=== PATIENT | male | born 1935 | race Caucasian/White ===

== ENCOUNTER → 2016-12-04 | Outpatient (CLI) | payer MEDICARE ==
[~2016-12-04] VITALS: Ht 170.2 cm; Wt 63.0 kg
[~2016-12-04] MED LIST: ALDA100T PO; ASPI81CH37 CHEW; BENZ100 PO; CARV3.125 PO; ECOT81TA2 PO; FURO1TAB60 PO; INSULIN HUMAN REGULAR 1,000 UNITS/10 ML VIAL SQ PRN; LACT PO; LACTATED RINGER'S 1000 ML IV SCH; LOPE2TAB PO; MELA1CAP PO; MELA5CAP2 PO; METOPROLOL TARTRATE 25 MG TAB PO PRN; MULT1TAB93; MYCO500 PO; NYST10007 TOPICAL; PRED5 PO; PRED5TAB PO; PROPOFOL 200 MG/20 ML AMP IV ONE; SAW500CA6 PO; SODIUM CHLORID 0.9% 500 ML IV SCH; VITA100021 SL; VITA50TA10 SL; hospital bed
[2016-12-04 11:19] VITALS: BP 134/70; PULSE 64; RESP 20; TEMP 96.8; O2SAT 100
[2016-12-04 13:57] VITALS: BP 98/55; PULSE 65; RESP 16; O2SAT 97
== END ==
LOC: HEND 10:40
PROVIDERS: ATTEND Specialist
DX: K29.50 Unspecified chronic gastritis without bleeding (principal); K74.60 Unspecified cirrhosis of liver; K76.6 Portal hypertension; K31.89 Other diseases of stomach and duodenum; I11.0 Hypertensive heart disease with heart failure; I50.9 Heart failure, unspecified; K21.9 Gastro-esophageal reflux disease without esophagitis; I25.10 Atherosclerotic heart disease of native coronary artery without angina pectoris; Z72.89 Other problems related to lifestyle
CPT/HCPCS: 00740; 43239; 88305; 88312; J7120

== ENCOUNTER → 2016-12-12 | Outpatient (CLI) | payer MEDICARE ==
[~2016-12-12] MED LIST changes: -ECOT81TA2 PO; -INSULIN HUMAN REGULAR 1,000 UNITS/10 ML VIAL SQ PRN; -LACTATED RINGER'S 1000 ML IV SCH; -LOPE2TAB PO; -MELA1CAP PO; -METOPROLOL TARTRATE 25 MG TAB PO PRN; -PRED5 PO; -PROPOFOL 200 MG/20 ML AMP IV ONE; -SAW500CA6 PO; -SODIUM CHLORID 0.9% 500 ML IV SCH; -VITA50TA10 SL; -hospital bed
[2016-12-12 15:27] LABS: HEMATOCRIT 29.3 % (39.0-51.0); MEAN CELL VOLUME 82.9 FL (80.0-100.0); MEAN CORPUSCULAR HEMOGLOBIN 27.7 PG (27.0-34.0); MEAN CORPUSCULAR HGB CONC 33.4 % (32.0-36.0); PLATELET COUNT 143 TH/MM3 (150-450); RED BLOOD COUNT 3.54 MIL/MM3 (4.50-5.90); RED CELL DISTRIBUTION WIDTH 16.6 % (11.6-17.2); REVIEW FLAG FINAL
[2016-12-12 15:41] LABS: BLOOD, URINE MOD (NEG); GLUCOSE,URINE NEG (NEG); KETONE, URINE NEG (NEG); MUCUS URINE FEW /lpf (OCC); NITRITE,URINE NEG (NEG); PH, URINE 5.5 (5.0-8.5); URINE COLOR LIGHT-YELLOW (YELLW/STRAW)
[2016-12-12 15:56] LABS: ANION GAP 7 MEQ/L (5-15); AST (GOT) 18 U/L (15-37); BICARBONATE 26.9 MEQ/L (21.0-32.0); BLOOD UREA NITROGEN 20 MG/DL (7-18); CHLORIDE 106 MEQ/L (98-107); GLOMERULAR FILTRATION RATE 72 ML/MIN (>89); GLUCOSE,FASTING 85 MG/DL (74-99); POTASSIUM 3.7 MEQ/L (3.5-5.1); SODIUM (NA) 140 MEQ/L (136-145)
[2016-12-12 15:59] LABS: ALKALINE PHOSPHATASE 76 U/L (45-117); ALT (GPT) 14 U/L (12-78); TOTAL BILIRUBIN ADULT 0.7 MG/DL (0.2-1.0)
[2016-12-17 03:53] LABS: MYELOPEROXIDASE LESS THAN 1.0 AI (<1.0); PROTEINASE-3 LESS THAN 1.0 AI (<1.0)
== END ==
LOC: CLAB 14:33
PROVIDERS: ATTEND Internal Medicine Rheumatology
DX: A50.02 Early congenital syphilitic osteochondropathy (principal)
CPT/HCPCS: 36415; 80053; 81001; 85027; 86021; 86140

== ENCOUNTER → 2017-01-29 | Outpatient (CLI) | payer MEDICARE ==
[2017-01-29 12:24] LABS: HEMATOCRIT 31.1 % (39.0-51.0); MEAN CELL VOLUME 84.7 FL (80.0-100.0); MEAN CORPUSCULAR HEMOGLOBIN 26.9 PG (27.0-34.0); MEAN CORPUSCULAR HGB CONC 31.8 % (32.0-36.0); PLATELET COUNT 145 TH/MM3 (150-450); RED BLOOD COUNT 3.67 MIL/MM3 (4.50-5.90); RED CELL DISTRIBUTION WIDTH 17.2 % (11.6-17.2); REVIEW FLAG FINAL
[2017-01-29 12:51] LABS: ALKALINE PHOSPHATASE 65 U/L (45-117); ALT (GPT) 16 U/L (12-78); ANION GAP 5 MEQ/L (5-15); AST (GOT) 26 U/L (15-37); BICARBONATE 29.2 MEQ/L (21.0-32.0); BLOOD UREA NITROGEN 20 MG/DL (7-18); CHLORIDE 107 MEQ/L (98-107); GLOMERULAR FILTRATION RATE 69 ML/MIN (>89); GLUCOSE,FASTING 99 MG/DL (74-99); POTASSIUM 3.9 MEQ/L (3.5-5.1); SODIUM (NA) 141 MEQ/L (136-145); TOTAL BILIRUBIN ADULT 0.7 MG/DL (0.2-1.0)
[2017-01-29 13:29] LABS: BLOOD, URINE MOD (NEG); GLUCOSE,URINE NEG (NEG); KETONE, URINE TRACE mg/dL (NEG); MUCUS URINE FEW /lpf (OCC); NITRITE,URINE NEG (NEG); PH, URINE 5.5 (5.0-8.5); SQUAMOUS EPITHELIAL CELL URINE <1 /hpf (0-5); URINE COLOR DARK-YELLOW (YELLW/STRAW)
== END ==
LOC: CLAB 11:53
PROVIDERS: ATTEND Internal Medicine Rheumatology
DX: M31.30 Wegener's granulomatosis without renal involvement (principal)
CPT/HCPCS: 36415; 80053; 81001; 85027; 86140

== ENCOUNTER → 2017-05-01 | Day surgery (SDC) | payer MEDICARE ==
[~2017-05-01] MED LIST changes: +BUPIVACAINE/EPINEPHRINE 0.25% 50 ML VIAL ONE; +BUPIVACAINE/EPINEPHRINE 0.5% PF 30 ML VIAL ONE; +LACTATED RINGER'S 1,000 ML BAG IV ONE; +NEOMYCIN/POLYMYXIN/BACITRACIN OINT 15 GM TUBE ONE; +PROPOFOL 200 MG/20 ML AMP IV ONE
--- NOTE | 2017-05-01 11:20 | TN ---
cc: BALBINA SHAIKH M.D. DATE OF SURGERY 05/01/2017 PREOPERATIVE DIAGNOSES 1. Raised skin lesion x 3 right forehead. 2. Raised skin lesion right lower leg, 1-cm, concerning for a basal cell or squamous cell carcinoma. 3. Pigmented skin lesion left thigh, 1 cm. 4. Raised skin lesion right lower back. PROCEDURE PERFORMED 1. A 5-mm punch excision right forehead skin lesion x 3. 2. A 3 x 2-cm wide local excision of raised skin lesion right lower leg. 3. 2 x -cm wide local excision pigmented skin lesion left thigh. 4. Wide local excision 2 x 1-cm skin lesion right lower back. SURGEON Balbina Shaikh MD ANESTHESIA General LMA. COMPLICATIONS None. INDICATION Mr. Brewer is a pleasant 82-year-old gentleman who had multiple recurring skin lesions. Specifically he had three on his forehead that were concerning for possible basal cell or squamous cell carcinoma. 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 On his back he had a nonhealing wound which was itching and it was also concerning for basal or squamous cell. He was seen and evaluated in the office. Because he had multiple lesions, I recommended this be done in the operating room. The risks and benefits of wide local excision of all these lesions was discussed with him and he was agreeable. DETAILS The patient was identified, brought to the operating room, placed supine on the operating table. After adequate general anesthesia was achieved with LMA, the forehead was prepped and draped in standard surgical fashion. 0.25% Marcaine was injected into the skin and subcutaneous tissue around the three lesions. Each lesion was cored out using a 5-mm core biopsy which achieved gross negative margins. All three lesions were cored out separately and labeled right forehead inferior lesion, right forehead superior lesion, right forehead superior lateral lesion. All these were excised with a 5-mm core. They were sent as separate specimens. Each of these three wounds was then closed with interrupted 5-0 Monocryl suture. Sterile dressings were applied. Attention was now directed to the left lower thigh. On the left lower thigh the patient had a pigmented skin lesion he was concerned about for possible melanoma. He requested this be excised. 0.25% Marcaine was injected around the left thigh. A 2 x 1-cm elliptical incision was then made to excise the lesion to gross negative margins. The wound was then closed in two layers using a 3-0 and 4-0 Vicryl. Sterile dressings were applied. Attention was now direct the right lower leg. On the right lower leg on the medial tuttle the patient had an obvious basilar squamous cell carcinoma. 0.25% Marcaine was injected around the lesion. A 3 x 2-cm excision was used to excise the lesion to gross negative margins. A short stitch was placed superior, long stitch was placed lateral which was the marking for all lesions. The wound was then closed in two layers using 3-0 Vicryl and a 4-0 nylon. The patient was then turned in the left lateral decubitus position with appropriate padding for hips, knees, shoulders and ankle as well as an axillary roll. 0.25% Marcaine was injected around the skin lesion on the back. A 2 x 1-cm incision was used to excise this lesion in toto. The wound was then closed in two layers using 3-0 Vicryl and a 4-0 nylon. Sterile dressings were applied. The patient was awakened and brought to Recovery in stable condition. MD VADIM Tay/MAXIME /11:04 AM /11:11 AM
== END | disposition home or self-care (01) ==
LOC: ESDC 08:24
PROVIDERS: ATTEND Surgery Trauma Surgery
DX: L72.0 Epidermal cyst (principal); C44.329 Squamous cell carcinoma of skin of other parts of face; L57.8 Other skin changes due to chronic exposure to nonionizing radiation; L57.0 Actinic keratosis
CPT/HCPCS: 00300; 00400; 11402; 11403; 11440; 11603; 11640; 12032; 88304; 88305; J3010; J7120

== ENCOUNTER 2017-07-11 15:10 | Inpatient (IN) | payer MEDICARE ==
[~2017-07-11] VITALS: Ht 170.2 cm; Wt 66.0 kg
[~2017-07-11 15:10] MED LIST changes: -BUPIVACAINE/EPINEPHRINE 0.25% 50 ML VIAL ONE; -BUPIVACAINE/EPINEPHRINE 0.5% PF 30 ML VIAL ONE; -LACTATED RINGER'S 1,000 ML BAG IV ONE; -NEOMYCIN/POLYMYXIN/BACITRACIN OINT 15 GM TUBE ONE; -PROPOFOL 200 MG/20 ML AMP IV ONE
[2017-07-11 15:16] VITALS: BP 114/82; PULSE 61; RESP 16; TEMP 98.5; O2SAT 97
[2017-07-11 15:34] VITALS: BP 114/82; PULSE 59; RESP 15; TEMP 98.5; O2SAT 97
[2017-07-11] MEDS ORDERED: FURO1TAB60 PO (15:37)
--- NOTE | 2017-07-11 15:43 | PD ---
HPI Chief Complaint: Respiratory Distress Time Seen by Provider: 15:17 Travel History International Travel<30 days: No Contact w/Intl Traveler<30days: No Traveled to known affect area: No History of Present Illness HPI Patient is an 82-year-old male who presents to emergency room for evaluation of shortness of breath. Patient reports that he has been short of breath for the past 3-4 days, reports history of recurrent pleural effusions which required thoracentesis in the past. Patient reports that he called Dr. Afshin Jones's office prior to coming to the ER, he was told to come go the the ER for evaluation as he may need a thoracentesis. Patient denies any chest pain, denies any fevers or chills. Patient denies any cough or congestion. 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 PFSH Past Medical History Arthritis: No Cancer: Yes (colon) Cardiac Catheterization: Yes Cardiovascular Problems: Yes (cardiac cath) Chemotherapy: Yes (11/04-12/06) Chest Pain: Yes Congestive Heart Failure: Yes Cerebrovascular Accident: No Diabetes: No Endocrine: No Gastrointestinal Disorders: Yes (colon ca) GERD: Yes Genitourinary: No Headaches: No Hepatitis: No Hiatal Hernia: No Hypertension: Yes Musculoskeletal: Yes Neurologic: Yes (wedginers disease) Psychiatric: Yes Respiratory: Yes Myocardial Infarction: Yes (SEP 2015) Radiation Therapy: Yes (11/04-12/06) Seizures: No Thyroid Disease: No Past Surgical History Abdominal Surgery: Yes (colon cancer surgery 2004) Cardiac Surgery: Yes (cardiac cath) Ear Surgery: No Endocrine Surgery: No Eye Surgery: Yes (cataract sx) Genitourinary Surgery: No Gynecologic Surgery: No Neurologic Surgery: No Oral Surgery: No Thoracic Surgery: No Other Surgery: Yes (colon ca, eye surgery) Social History Alcohol Use: Yes (glass wine daily) Tobacco Use: No Substance Use: No Allergies-Medications (Allergen,Severity, Reaction): Coded Allergies: No Known Allergies (Verified , 07/11/17) Reported Meds & Prescriptions Reported Meds & Active Scripts Active Tessalon Perles (Benzonatate) 100 Mg Cap 100 Mg PO TID PRN Aldactone (Spironolactone) 100 Mg Tab 100 Mg PO DAILY Reported Lasix (Furosemide) 40 Mg Tab 40 Mg PO BID Vitamin B-12 (Cyanocobalamin) 1,000 Mcg Subl 1 Tab SL DAILY Prednisone 5 Mg Tab 5 Mg PO DAILY Aspirin Low Dose (Aspirin) 81 Mg Chew 81 Mg CHEW DAILY Coreg (Carvedilol) 3.125 Mg Tab 3.125 Mg PO BID Review of Systems General / Constitutional: No: Fever Eyes: No: Visual changes HENT: No: Headaches Cardiovascular: No: Chest Pain or Discomfort, Palpitations, Irregular Rhythm, Tachycardia, Diaphoresis Respiratory: Positive: Shortness of Breath, No: Cough Gastrointestinal: No: Nausea, Vomiting, Abdominal Pain Genitourinary: No: Dysuria Musculoskeletal: No: Pain Skin: No Rash Neurologic: No: Weakness Psychiatric: No: Depression Endocrine: No: Polydipsia Hematologic/Lymphatic: No: Easy Bruising Physical Exam Narrative GENERAL: NAD, Nontoxic SKIN: Focused skin assessment warm/dry. HEAD: Atraumatic. Normocephalic. EYES: Pupils equal and round. No scleral icterus. No injection or drainage. ENT: No nasal bleeding or discharge. Mucous membranes pink and moist. NECK: Trachea midline. No JVD. CARDIOVASCULAR: Regular rate and rhythm. +3/6 systolic murmur RESPIRATORY: No accessory muscle use. Clear to auscultation. Breath sounds equal bilaterally. GASTROINTESTINAL: Abdomen soft, non-tender, nondistended. Hepatic and splenic margins not palpable. MUSCULOSKELETAL: No obvious deformities. No clubbing. No cyanosis. No edema. NEUROLOGICAL: Awake and alert. No obvious cranial nerve deficits. Motor grossly within normal limits. Normal speech. PSYCHIATRIC: Appropriate mood and affect; insight and judgment normal. Data Data Last Documented VS Vital Signs Date Time Temp Pulse Resp B/P Pulse Ox O2 Delivery O2 Flow Rate FiO2 07/11/17 15:34 98.5 59 15 114/82 97 Room Air Orders Electrocardiogram (07/11/17 15:23) Prothrombin Time / Inr (Pt) (07/11/17 15:23) Act Partial Throm Time (Ptt) (07/11/17 15:23) Complete Blood Count With Diff (07/11/17 15:23) Basic Metabolic Panel (Bmp) (07/11/17 15:23) Creatine Kinase (Cpk) (07/11/17 15:23) Troponin I (07/11/17 15:23) Ecg Monitoring (07/11/17 15:23) Iv Access Insert/Monitor (07/11/17 15:23) Oximetry (07/11/17 15:23) B-Type Natriuretic Peptide (07/11/17 15:38) Chest, Pa & Lat (07/11/17 15:50) Blood Culture (07/11/17 16:40) Ceftriaxone Inj (Rocephin Inj) (07/11/17 16:45) Azithromycin Inj (Zithromax Inj) (07/11/17 16:45) Admit Order (Ed Use Only) (07/11/17 17:03) Labs Laboratory Tests Test 07/11/17 15:40 White Blood Count 16.1 TH/MM3 Red Blood Count 3.59 MIL/MM3 Hemoglobin 10.6 GM/DL Hematocrit 31.6 % Mean Corpuscular Volume 87.9 FL Mean Corpuscular Hemoglobin 29.6 PG Mean Corpuscular Hemoglobin 33.7 % Concent Red Cell Distribution Width 18.4 % Platelet Count 124 TH/MM3 Mean Platelet Volume 8.3 FL Neutrophils (%) (Auto) 26.3 % Lymphocytes (%) (Auto) 69.1 % Monocytes (%) (Auto) 3.4 % Eosinophils (%) (Auto) 0.7 % Basophils (%) (Auto) 0.5 % Neutrophils # (Auto) 4.2 TH/MM3 Lymphocytes # (Auto) 11.1 TH/MM3 Monocytes # (Auto) 0.6 TH/MM3 Eosinophils # (Auto) 0.1 TH/MM3 Basophils # (Auto) 0.1 TH/MM3 CBC Comment AUTO DIFF Prothrombin Time 12.7 SEC Prothromb Time International 1.1 RATIO Ratio Activated Partial 25.9 SEC Thromboplast Time Sodium Level 140 MEQ/L Potassium Level 3.8 MEQ/L Chloride Level 104 MEQ/L Carbon Dioxide Level 28.0 MEQ/L Anion Gap 8 MEQ/L Blood Urea Nitrogen 25 MG/DL Creatinine 0.99 MG/DL Estimat Glomerular Filtration 73 ML/MIN Rate Random Glucose 94 MG/DL Calcium Level 7.9 MG/DL Total Creatine Kinase 20 U/L Troponin I LESS THAN 0.02 NG/ML B-Type Natriuretic Peptide 100 PG/ML MDM Medical Decision Making Medical Screen Exam Complete: Yes Emergency Medical Condition: Yes Interpretation(s) EKG at 1612: sinus leyla at 58bpm, qt/qtc: 438/436, no acute st or t wave changes Vital Signs Date Time Temp Pulse Resp B/P Pulse Ox O2 Delivery O2 Flow Rate FiO2 07/11/17 15:16 98.5 61 16 114/82 97 Vital Signs Date Time Temp Pulse Resp B/P Pulse Ox O2 Delivery O2 Flow Rate FiO2 07/11/17 15:34 98.5 59 15 114/82 97 Room Air 07/11/17 15:34 59 15 98 Room Air 07/11/17 15:34 59 15 114/82 97 Room Air 07/11/17 15:16 98.5 61 16 114/82 97 Laboratory Tests Test 07/11/17 15:40 White Blood Count 16.1 TH/MM3 (4.0-11.0) Red Blood Count 3.59 MIL/MM3 (4.50-5.90) Hemoglobin 10.6 GM/DL (13.0-17.0) Hematocrit 31.6 % (39.0-51.0) Mean Corpuscular Volume 87.9 FL (80.0-100.0) Mean Corpuscular Hemoglobin 29.6 PG (27.0-34.0) Mean Corpuscular Hemoglobin 33.7 % Concent (32.0-36.0) Red Cell Distribution Width 18.4 % (11.6-17.2) Platelet Count 124 TH/MM3 (150-450) Mean Platelet Volume 8.3 FL (7.0-11.0) Neutrophils (%) (Auto) 26.3 % (16.0-70.0) Lymphocytes (%) (Auto) 69.1 % (9.0-44.0) Monocytes (%) (Auto) 3.4 % (0.0-8.0) Eosinophils (%) (Auto) 0.7 % (0.0-4.0) Basophils (%) (Auto) 0.5 % (0.0-2.0) Neutrophils # (Auto) 4.2 TH/MM3 (1.8-7.7) Lymphocytes # (Auto) 11.1 TH/MM3 (1.0-4.8) Monocytes # (Auto) 0.6 TH/MM3 (0-0.9) Eosinophils # (Auto) 0.1 TH/MM3 (0-0.4) Basophils # (Auto) 0.1 TH/MM3 (0-0.2) CBC Comment AUTO DIFF Prothrombin Time 12.7 SEC (9.8-11.6) Prothromb Time International 1.1 RATIO Ratio Activated Partial 25.9 SEC Thromboplast Time (24.3-30.1) Sodium Level 140 MEQ/L (136-145) Potassium Level 3.8 MEQ/L (3.5-5.1) Chloride Level 104 MEQ/L (98-107) Carbon Dioxide Level 28.0 MEQ/L (21.0-32.0) Anion Gap 8 MEQ/L (5-15) Blood Urea Nitrogen 25 MG/DL (7-18) Creatinine 0.99 MG/DL (0.60-1.30) Estimat Glomerular Filtration 73 ML/MIN (>89) Rate Random Glucose 94 MG/DL (74-106) Calcium Level 7.9 MG/DL (8.5-10.1) Total Creatine Kinase 20 U/L (39-308) Troponin I LESS THAN 0.02 NG/ML (0.02-0.05) Last Impressions Chest X-Ray 07/11/17 1550 Signed Impressions: Service Date/Time: July 15:59 - CONCLUSION: Small bilateral pleural effusions with some bibasilar infiltrates. Klever Jose MD Differential Diagnosis Differential includes pleural effusions, pneumonia, CHF exacerbation, ascites Narrative Course Patient is an 82-year-old male who presents to emergency room with complaints of shortness of breath for the past 3-4 days. Patient was told to come to the emergency room by Dr. jones for evaluation and possible admission. I did call Dr. Afshin Jones and discussed case with him, reports that patient has history of recurrent pleural effusions requiring thoracentesis. Reports that he has history of liver cirrhosis with portal hypertension and has had ascites in the past. Dr. Jones did talk to patient and told patient to come to the ER for an xray of his chest if he is feeling sob. Discussed with him that if he does have significant pleural effusions, Vital Signs Date Time Temp Pulse Resp B/P Pulse Ox O2 Delivery O2 Flow Rate FiO2 07/11/17 15:16 98.5 61 16 114/82 97 VSS while in the ER. Labs as well as xray of chest ordered. Vital Signs Date Time Temp Pulse Resp B/P Pulse Ox O2 Delivery O2 Flow Rate FiO2 07/11/17 15:34 98.5 59 15 114/82 97 Room Air 07/11/17 15:34 59 15 98 Room Air 07/11/17 15:34 59 15 114/82 97 Room Air 07/11/17 15:16 98.5 61 16 114/82 97 Laboratory Tests Test 07/11/17 15:40 White Blood Count 16.1 TH/MM3 (4.0-11.0) Red Blood Count 3.59 MIL/MM3 (4.50-5.90) Hemoglobin 10.6 GM/DL (13.0-17.0) Hematocrit 31.6 % (39.0-51.0) Mean Corpuscular Volume 87.9 FL (80.0-100.0) Mean Corpuscular Hemoglobin 29.6 PG (27.0-34.0) Mean Corpuscular Hemoglobin 33.7 % Concent (32.0-36.0) Red Cell Distribution Width 18.4 % (11.6-17.2) Platelet Count 124 TH/MM3 (150-450) Mean Platelet Volume 8.3 FL (7.0-11.0) Neutrophils (%) (Auto) 26.3 % (16.0-70.0) Lymphocytes (%) (Auto) 69.1 % (9.0-44.0) Monocytes (%) (Auto) 3.4 % (0.0-8.0) Eosinophils (%) (Auto) 0.7 % (0.0-4.0) Basophils (%) (Auto) 0.5 % (0.0-2.0) Neutrophils # (Auto) 4.2 TH/MM3 (1.8-7.7) Lymphocytes # (Auto) 11.1 TH/MM3 (1.0-4.8) Monocytes # (Auto) 0.6 TH/MM3 (0-0.9) Eosinophils # (Auto) 0.1 TH/MM3 (0-0.4) Basophils # (Auto) 0.1 TH/MM3 (0-0.2) CBC Comment AUTO DIFF Prothrombin Time 12.7 SEC (9.8-11.6) Prothromb Time International 1.1 RATIO Ratio Activated Partial 25.9 SEC Thromboplast Time (24.3-30.1) Sodium Level 140 MEQ/L (136-145) Potassium Level 3.8 MEQ/L (3.5-5.1) Chloride Level 104 MEQ/L (98-107) Carbon Dioxide Level 28.0 MEQ/L (21.0-32.0) Anion Gap 8 MEQ/L (5-15) Blood Urea Nitrogen 25 MG/DL (7-18) Creatinine 0.99 MG/DL (0.60-1.30) Estimat Glomerular Filtration 73 ML/MIN (>89) Rate Random Glucose 94 MG/DL (74-106) Calcium Level 7.9 MG/DL (8.5-10.1) Total Creatine Kinase 20 U/L (39-308) Troponin I LESS THAN 0.02 NG/ML (0.02-0.05) Last Impressions Chest X-Ray 07/11/17 1550 Signed Impressions: Service Date/Time: July 15:59 - CONCLUSION: Small bilateral pleural effusions with some bibasilar infiltrates. Klever Jose MD patient with wbc of 16.1, he does appear to have b/l small pleural effusions with some bibasilar infiltrates. plan to panculture patient and obs for multilobar pneumonia case reviewed with dr. hager who accepts pt to service Diagnosis Primary Impression: Pneumonia Qualified Code: J18.9 - Pneumonia of both lower lobes due to infectious organism Additional Impression: Pleural effusion Admitting Information Admitting Physician Requests: Observation Ami Camara DO Jul 11, 2017 15:43
[2017-07-11 16:09] LABS: AUTOMATED NEUTROPHIL # 4.2 TH/MM3 (1.8-7.7); BASOPHIL # 0.1 TH/MM3 (0-0.2); BASOPHIL % 0.5 % (0.0-2.0); EOSINOPHIL # 0.1 TH/MM3 (0-0.4); EOSINOPHIL % 0.7 % (0.0-4.0); HEMATOCRIT 31.6 % (39.0-51.0); LYMPH % 69.1 % (9.0-44.0); LYMPHOCYTE # 11.1 TH/MM3 (1.0-4.8); MEAN CELL VOLUME 87.9 FL (80.0-100.0); MEAN CORPUSCULAR HEMOGLOBIN 29.6 PG (27.0-34.0); MEAN CORPUSCULAR HGB CONC 33.7 % (32.0-36.0); MONO % 3.4 % (0.0-8.0); NEUT % 26.3 % (16.0-70.0); PLATELET COUNT 124 TH/MM3 (150-450); RED BLOOD COUNT 3.59 MIL/MM3 (4.50-5.90); RED CELL DISTRIBUTION WIDTH 18.4 % (11.6-17.2); WHITE BLOOD COUNT 16.1 TH/MM3 (4.0-11.0)
--- NOTE | 2017-07-11 16:14 | RADRPT ---
EXAM DATE/TIME: 07/11/2017 15:59 [facility] COMPARISON: CHEST EXPIRATION ONLY, October 05, 2016, 10:39. CHEST PA & LAT, September 19, 2016, 8:14. INDICATIONS : Short of breath MEDICAL HISTORY : Cardiovascular disease. Matti's vasculitis. osteopenia. colorectal cancer with radiation and SURGICAL HISTORY : Inguinal hernia repair. Colectomy 2004. Ostomy reversal 2005. Cardiac stent ENCOUNTER: Initial ACUITY: 3 days PAIN SCORE: 0/10 LOCATION: chest FINDINGS: PA and lateral views of the chest demonstrate mild bibasilar infiltrates with small bilateral effusio ns. The heart size is within normal limits. The upper lung guerin are clear. The bony structures are grossly intact.. CONCLUSION: Small bilateral pleural effusions with some bibasilar infiltrates. Klever Jose MD on July 11, 2017 at 16:12 Board Certified Radiologist. This report was verified electronically.
[2017-07-11 16:16] LABS: HEMO FLAGS AUTO DIFF
[2017-07-11 16:28] LABS: APTT (PATIENT) 25.9 SEC (24.3-30.1); INTERNATIONAL NORMALIZED RATIO 1.1 RATIO; PROTHROMBIN TIME - PATIENT 12.7 SEC (9.8-11.6)
[2017-07-11 16:29] LABS: ANION GAP 8 MEQ/L (5-15); BLOOD UREA NITROGEN 25 MG/DL (7-18); CHLORIDE 104 MEQ/L (98-107); GLOMERULAR FILTRATION RATE 73 ML/MIN (>89); POTASSIUM 3.8 MEQ/L (3.5-5.1); SODIUM (NA) 140 MEQ/L (136-145)
[2017-07-11 16:34] LABS: CREATINE KINASE 20 U/L (39-308)
[2017-07-11] MEDS ORDERED: AZITHROMYCIN INJ 500 MG in SODIUM CHLOR 0.9% 250 ML INJ 250 ML IV ONE (16:45)
[2017-07-11] MEDS ORDERED: cefTRIAXone INJ 1,000 MG in SODIUM CHLORIDE 0.9% INJ 100 ML IV ONE (16:45)
[2017-07-11 17:14] LABS: BANDS 1 % (0-6); BASOPHILS 3 % (0-2); EOSINOPHILS 1 % (0-4); NEUTROPHIL # MANUAL DIFF 7.2 TH/MM3 (1.8-7.7); POLYS (SEG NEUTROPHILS) 44 % (16-70); WBC DIFF SAMPLE 100
[2017-07-11] MEDS ORDERED: MAGNESIUM HYDROXIDE SUSP 30 ML CUP PO PRN (17:15)
[2017-07-11] MEDS ORDERED: BISACODYL 10 MG SUPP RECTAL PRN (17:15)
[2017-07-11] MEDS ORDERED: ONDANSETRON HCL 4 MG/2 ML VIAL IVP PRN (17:15)
[2017-07-11] MEDS ORDERED: SENNOSIDES 8.6 MG TAB PO PRN (17:15)
[2017-07-11] MEDS ORDERED: LACTULOSE SYRUP 20 GM/30 ML CUP PO PRN (17:15)
[2017-07-11] MEDS ORDERED: RESP: ALBUTEROL 2.5 MG/IPRATROPIUM 0.5 MG NEB (PRN) NEB (17:15)
[2017-07-11] MEDS ORDERED: SODIUM CHLORIDE 0.9% FLUSH 10 ML FLUSH IV FLUSH PRN (17:15)
[2017-07-11] MEDS ORDERED: NALOXONE HCL 0.4 MG/ML AMP IV PRN (17:15)
[2017-07-11 17:17] LABS: ACANTHOCYTES 1+ (NORMAL); OVALOCYTES 1+ (NORMAL); SMUDGE CELLS PRESENT PRESENT; TEARDROP RBCS 1+ (NORMAL)
[2017-07-11 17:18] LABS: PLATELET ESTIMATE SMEAR LOW (NORMAL); PLATELET MORPHOLOGY NORMAL (NORMAL); SCAN/DIFF FINAL DIFF MANUAL
--- NOTE | 2017-07-11 17:45 | HHI.HP ---
HPI Service [facility] Primary Care Physician Janette Clancy MD Admission Diagnosis Bibasilar Pneumonia Diagnoses: Chief Complaint: dyspnea Travel History International Travel<30 Days: No Contact w/Intl Traveler <30 Da: No Traveled to Known Affected Are: No History of Present Illness Written by JAMES Paulson acting as scribe for Dr. Harman] on 07/11/17 at 17: 39. This note was transcribed by scribe JAMES Paulson. I, Dr. Jeramy Smith personally performed the history, physical exam, and medical decision making; and confirmed the accuracy of the information in the transcribed note. Authenticated by Dr. Jeramy Smith on 07/11/17 at 22:58. 82 y/o male with a history of Matti's, Vasculitis, HTN, Colon cancer and Pleural effusions presented to the ED with complaints of increasing sob for the last 2 days, he has been unable to sleep at night. He was hospitalized in [facility] for 48 hrs 2 weeks ago and underwent a thoracentesis there, unsure of the amount of fluid removed. He denies any fever, cough, chills, nausea or vomiting. Review of Systems Except as stated in HPI: all other systems reviewed are Neg Past Family Social History Past Medical History Matti's Vasculitis HTN Colon cancer ND 2016 Past Surgical History Colon resection Reported Medications Reported Meds & Active Scripts Active Tessalon Perles (Benzonatate) 100 Mg Cap 100 Mg PO TID PRN Aldactone (Spironolactone) 100 Mg Tab 100 Mg PO DAILY Reported Lasix (Furosemide) 40 Mg Tab 40 Mg PO BID Vitamin B-12 (Cyanocobalamin) 1,000 Mcg Subl 1 Tab SL DAILY Prednisone 5 Mg Tab 5 Mg PO DAILY Aspirin Low Dose (Aspirin) 81 Mg Chew 81 Mg CHEW DAILY Coreg (Carvedilol) 3.125 Mg Tab 3.125 Mg PO BID Allergies: Coded Allergies: No Known Allergies (Verified , 07/11/17) Active Ordered Medications Current Medications Medications (Trade) Dose Ordered Sig/Chantel Route Start Time Stop Time Status Last Admin (Zithromax Inj/ NS 250 ml Inj) 250 ml @ 250 mls/hr ONCE ONCE IV 07/11/17 16:45 07/11/17 17:44 (NS Flush) 2 ml UNSCH PRN IV FLUSH 07/11/17 17:15 UNV (NS Flush) 2 ml BID IV FLUSH 07/11/17 21:00 UNV (Tylenol) 650 mg Q4H PRN PO 07/11/17 17:15 UNV (Zofran Inj) 4 mg Q6H PRN IVP 07/11/17 17:15 UNV (Lovenox Inj) 40 mg Q24H SQ 07/11/17 17:15 UNV (Narcan Inj) 0.4 mg UNSCH PRN IV 07/11/17 17:15 UNV (Dior-Colace) 1 tab BID PO 07/11/17 21:00 UNV (Milk Of Magnesia Liq) 30 ml Q12H PRN PO 07/11/17 17:15 UNV (Senokot) 17.2 mg Q12H PRN PO 07/11/17 17:15 UNV (Dulcolax Supp) 10 mg DAILY PRN RECTAL 07/11/17 17:15 UNV (Lactulose Liq) 30 ml DAILY PRN PO 07/11/17 17:15 UNV (Levaquin) 750 mg DAILY PO 07/12/17 09:00 07/18/17 08:59 UNV Family History Mom and sister: Breast cancer Social History Tobacco use: Quit 50 years ago Alcohol use: quit 1 year ago Physical Exam Vital Signs Vital Signs Date Time Temp Pulse Resp B/P Pulse Ox O2 Delivery O2 Flow Rate FiO2 07/11/17 15:34 98.5 59 15 114/82 97 Room Air 07/11/17 15:34 59 15 98 Room Air 07/11/17 15:34 59 15 114/82 97 Room Air 07/11/17 15:16 98.5 61 16 114/82 97 Physical Exam GENERAL: This is a well-nourished, well-developed patient, in no apparent distress. SKIN: No rashes, ecchymoses or lesions. Cool and dry. HEAD: Atraumatic. Normocephalic. No temporal or scalp tenderness. EYES: Pupils equal round and reactive. Extraocular motions intact. ENT: Nose without bleeding, purulent drainage or septal hematoma. Airway patent. NECK: Trachea midline. No JVD or lymphadenopathy. CARDIOVASCULAR: Regular rate and rhythm with a systolic murmer appreciated. RESPIRATORY: Diminished bilateral lung sound in bilateral bases. Breath sounds equal bilaterally. No wheezes, rales, or rhonchi. GASTROINTESTINAL: Abdomen soft, non-tender, nondistended. No hepato-splenomegaly , or palpable masses. No guarding. MUSCULOSKELETAL: Extremities without clubbing, cyanosis, or edema. No joint tenderness, effusion, or edema noted. No calf tenderness. NEUROLOGICAL: Awake and alert. Motor and sensory grossly within normal limits. Normal speech. Laboratory Laboratory Tests Test 07/11/17 15:40 White Blood Count 16.1 Red Blood Count 3.59 Hemoglobin 10.6 Hematocrit 31.6 Mean Corpuscular Volume 87.9 Mean Corpuscular Hemoglobin 29.6 Mean Corpuscular Hemoglobin 33.7 Concent Red Cell Distribution Width 18.4 Platelet Count 124 Mean Platelet Volume 8.3 Neutrophils (%) (Auto) 26.3 Lymphocytes (%) (Auto) 69.1 Monocytes (%) (Auto) 3.4 Eosinophils (%) (Auto) 0.7 Basophils (%) (Auto) 0.5 Neutrophils # (Auto) 4.2 Lymphocytes # (Auto) 11.1 Monocytes # (Auto) 0.6 Eosinophils # (Auto) 0.1 Basophils # (Auto) 0.1 CBC Comment AUTO DIFF Differential Total Cells 100 Counted Neutrophils % (Manual) 44 Band Neutrophils % 1 Lymphocytes % 51 Eosinophils % 1 Basophils % 3 Neutrophils # (Manual) 7.2 Differential Comment FINAL DIFF MANUAL Atypical Lymphocytes Smudge Cells PRESENT Platelet Estimate LOW Platelet Morphology Comment NORMAL Tear Drop Cells 1+ Ovalocytes 1+ Acanthocytes 1+ Prothrombin Time 12.7 Prothromb Time International 1.1 Ratio Activated Partial 25.9 Thromboplast Time Sodium Level 140 Potassium Level 3.8 Chloride Level 104 Carbon Dioxide Level 28.0 Anion Gap 8 Blood Urea Nitrogen 25 Creatinine 0.99 Estimat Glomerular Filtration 73 Rate Random Glucose 94 Calcium Level 7.9 Total Creatine Kinase 20 Troponin I LESS THAN 0.02 B-Type Natriuretic Peptide 100 Date/Time Procedure Status Source Growth 07/11/17 17:10 Aerobic Blood Culture Received Blood Peripheral Pending 07/11/17 17:10 Anaerobic Blood Culture Received Blood Peripheral Pending Result Diagram: 07/11/17 1540 07/11/17 1540 Imaging Last Impressions Chest X-Ray 07/11/17 1550 Signed Impressions: Service Date/Time: , July 11, 2017 15:59 - CONCLUSION: Small bilateral pleural effusions with some bibasilar infiltrates. Klever Jose MD Assessment and Plan Problem List: (1) Pneumonia ICD Code: J18.9 Status: Acute (2) Pleural effusion ICD Code: J90 Status: Resolved Assessment and Plan 82 y/o male with a history of Matti's, Vasculitis, HTN, Colon cancer and Pleural effusions presented to the ED with complaints of increasing sob for the last 2 days. Bilateral Pneumonia with leukocytosis, suspected hospital acquired, pt hospitalized for 48 hrs 2 weeks ago, WBC 16.1 Chest x ray reviewed and shows Small bilateral pleural effusions with some bibasilar infiltrates. -We calculated PSI (Pneumonia severity index) as well as CURB-65 - both these calculators indicate in-patient vs. outpatient treatment. Since patient had recent hospitalization, recent thoracentesis and current leukocytosis, we opted for in-patient status. However, should patient improve significantly, he maybe discharged sooner than anticipated. -Levaquin IV daily -CBC in AM -Blood cultures pending -Will consult pulmonology, Dr. Jones if needed -Re order home medication Prednisone 5mg Qday. Pleural effusions, chronic -Reorder home medication Lasix and Aldactone -Follow up Chest xray if patient worsens HTN, Chronic -Resume home medications DVT prophylaxis: Lovenox Discussed Condition With Patient, and ED physician Physician Certification 2 Midnight Certification Type: Admission for Inpatient Services Order for Inpatient Services The services are ordered in accordance with Medicare regulations or non- Medicare payer requirements, as applicable. In the case of services not specified as inpatient-only, they are appropriately provided as inpatient services in accordance with the 2-midnight benchmark. Estimated LOS (days): 2 days is the estimated time the patient will need to remain in the hospital, assuming treatment plan goals are met and no additional complications. Post-Hospital Plan: Home Problem Qualifiers (1) Pneumonia: Qualified Code: J18.9 - Pneumonia of both lower lobes due to infectious organism Jen Del Valle Jul 11, 2017 17:45 Erica Smith DO Jul 11, 2017 22:58
[2017-07-11] MEDS ORDERED: ENOXAPARIN SODIUM 40 MG/0.4 ML SYRINGE SQ SCH (18:00)
[2017-07-11 20:00] VITALS: BP 111/56; PULSE 67; RESP 20; TEMP 98.2; O2SAT 98
[2017-07-11] MEDS: SODIUM CHLORIDE 0.9% FLUSH 10 ML FLUSH IV FLUSH SCH (21:10)
[2017-07-11] MEDS: DOCUSATE SODIUM 50 MG/SENNA 8.6 MG TAB PO SCH (21:11)
[2017-07-11] MEDS: CARVEDILOL 3.125 MG TAB PO SCH (21:11)
[2017-07-11] MEDS: ACETAMINOPHEN 325 MG TAB PO PRN (21:12)
[2017-07-12] MEDS: ACETAMINOPHEN 325 MG TAB PO PRN (02:12)
[2017-07-12 04:31] VITALS: BP 113/57; PULSE 54; RESP 18; TEMP 97.3; O2SAT 98
[2017-07-12 08:23] VITALS: BP 119/56; PULSE 62; RESP 18; TEMP 98.2; O2SAT 96
[2017-07-12] MEDS ORDERED: SPIRONOLACTONE 100 MG TAB PO SCH (09:00)
[2017-07-12] MEDS ORDERED: predniSONE 5 MG TAB PO SCH (09:00)
[2017-07-12] MEDS ORDERED: LEVOFLOXACIN 750 MG TAB PO SCH (09:00)
[2017-07-12] MEDS ORDERED: CYANOCOBALAMIN 1,000 MCG TAB PO SCH (09:00)
[2017-07-12] MEDS ORDERED: ASPIRIN 81 MG CHEW TAB CHEW SCH (09:00)
[2017-07-12 09:35] LABS: BICARBONATE 26.3 MEQ/L (21.0-32.0); CALCIUM-PROTEIN CORRECTED 8.8 MG/DL (8.5-10.1)
[2017-07-12] MEDS: FUROSEMIDE 40 MG TAB PO SCH ×2 (10:10→10:33)
[2017-07-12 10:18] VITALS: O2SAT 98
[2017-07-12] MEDS: CARVEDILOL 3.125 MG TAB PO SCH (10:33)
[2017-07-12] MEDS: DOCUSATE SODIUM 50 MG/SENNA 8.6 MG TAB PO SCH (10:33)
[2017-07-12] MEDS: SODIUM CHLORIDE 0.9% FLUSH 10 ML FLUSH IV FLUSH SCH (10:36)
--- NOTE | 2017-07-12 11:42 | HHI.FF ---
Face to Face Verification Diagnosis: (1) Pneumonia (2) Pleural effusion (3) Wegeners granulomatosis Physical Therapy Order: Evaluate and Treat, Improve ambulation, Strength and gait training Home Health Nursing Order: Signs/symptoms of disease process Nursing assessment with vital signs I have seen patient Brent Brewer on 07/12/17. My clinical findings support the need for the requested home health care services because: Patient has SOB Deconditioned w/ increased weakness Limited ability to care for self Need for psychosocial assistance Infection w/ risk of complications I certify that my clinical findings support that this patient is homebound because: Unsteady gait/balance Unsafe to leave home unassisted Need for psychosocial assistance Unable to use public transportation Erica Smith DO Jul 12, 2017 11:42
[2017-07-12 12:13] VITALS: BP 112/59; PULSE 77; RESP 18; TEMP 97.6; O2SAT 95
[2017-07-12 12:14] LABS: BASOPHIL # 0.1 TH/MM3 (0-0.2); BASOPHIL % 0.7 % (0.0-2.0); EOSINOPHIL # 0.1 TH/MM3 (0-0.4); EOSINOPHIL % 0.5 % (0.0-4.0); HEMATOCRIT 33.6 % (39.0-51.0); LYMPH % 69.8 % (9.0-44.0); LYMPHOCYTE # 13.2 TH/MM3 (1.0-4.8); MEAN CELL VOLUME 88.9 FL (80.0-100.0); MEAN CORPUSCULAR HEMOGLOBIN 29.8 PG (27.0-34.0); MEAN CORPUSCULAR HGB CONC 33.6 % (32.0-36.0); MONO % 2.3 % (0.0-8.0); NEUT % 26.7 % (16.0-70.0); PLATELET COUNT 134 TH/MM3 (150-450); RED BLOOD COUNT 3.78 MIL/MM3 (4.50-5.90); RED CELL DISTRIBUTION WIDTH 18.4 % (11.6-17.2); WHITE BLOOD COUNT 18.9 TH/MM3 (4.0-11.0)
[2017-07-12 12:20] LABS: HEMO FLAGS AUTO DIFF
[2017-07-12 12:56] LABS: BANDS 5 % (0-6); NEUTROPHIL # MANUAL DIFF 4.7 TH/MM3 (1.8-7.7); POLYS (SEG NEUTROPHILS) 20 % (16-70); WBC DIFF SAMPLE 100
[2017-07-12 12:58] LABS: PLATELET ESTIMATE SMEAR LOW (NORMAL); PLATELET MORPHOLOGY NORMAL (NORMAL); SCAN/DIFF FINAL DIFF MANUAL
[2017-07-12 12:59] LABS: HELMET CELLS OCC (NORMAL); OVALOCYTES 1+ (NORMAL)
[2017-07-12 13:01] LABS: ACANTHOCYTES OCC (NORMAL)
[2017-07-12] MEDS ORDERED: LEVA750T9 PO (14:36)
--- NOTE | 2017-07-12 14:39 | HHI.PR ---
Subjective Remarks Follow up for pneumonia. Patient is doing well. No acute concerns. Denies any fever, chills. He wants to go home. Objective Vitals Vital Signs Date Time Temp Pulse Resp B/P Pulse Ox O2 Delivery O2 Flow Rate FiO2 07/12/17 12:13 97.6 77 18 112/59 95 07/12/17 10:18 98 Nasal Cannula 2.00 07/12/17 08:23 98.2 62 18 119/56 96 07/12/17 05:18 Nasal Cannula 2.00 07/12/17 04:31 97.3 54 18 113/57 98 07/11/17 20:00 98.2 67 20 111/56 98 07/11/17 15:34 98.5 59 15 114/82 97 Room Air 07/11/17 15:34 59 15 98 Room Air 07/11/17 15:34 59 15 114/82 97 Room Air 07/11/17 15:16 98.5 61 16 114/82 97 I/O 07/11/17 07/11/17 07/11/17 07/12/17 07/12/17 07/12/17 07:00 15:00 23:00 07:00 15:00 23:00 Intake Total 830 ml Output Total 150 ml Balance 680 ml Intake Oral 480 ml IV Total 350 ml Output Urine Total 150 ml # Voids 2 # Bowel Movements 1 Result Diagram: 07/12/17 1150 07/12/17 0818 Imaging Last Impressions Chest X-Ray 07/11/17 1550 Signed Impressions: Service Date/Time: July 15:59 - CONCLUSION: Small bilateral pleural effusions with some bibasilar infiltrates. Klever Jose MD Objective Remarks GENERAL: AOX3, NAD. SKIN: Warm and dry. HEAD: Normocephalic. EYES: No scleral icterus. No injection or drainage. NECK: Supple, trachea midline. No JVD or lymphadenopathy. CARDIOVASCULAR: Regular rate and rhythm without gallops, or rubs. Systolic murmur present. RESPIRATORY: Breath sounds equal bilaterally. No accessory muscle use. GASTROINTESTINAL: Abdomen soft, non-tender, nondistended. MUSCULOSKELETAL: No cyanosis, or edema. BACK: Nontender without obvious deformity. No CVA tenderness. Procedures None. A/P Problem List: (1) Pneumonia ICD Code: J18.9 Status: Acute (2) Pleural effusion ICD Code: J90 Status: Resolved Assessment and Plan 82 y/o male with a history of Matti's, Vasculitis, HTN, Colon cancer and Pleural effusions presented to the ED with complaints of increasing sob for the last 2 days. Bilateral Pneumonia with leukocytosis, suspected hospital acquired, pt hospitalized for 48 hrs 2 weeks ago, WBC 16.1 Chest x ray reviewed and shows Small bilateral pleural effusions with some bibasilar infiltrates. -We calculated PSI (Pneumonia severity index) as well as CURB-65 - both these calculators indicate in-patient vs. outpatient treatment. Since patient had recent hospitalization, recent thoracentesis and current leukocytosis, we opted for in-patient status. However, should patient improve significantly, he maybe discharged sooner than anticipated. -Levaquin 750mg PO for 5 more days. -CBC indicates slight increase in WBC count. However, patient is on chronic steroid medications. -CBC can be repeated in one week. -Blood cultures - NGTD -Will consult pulmonology, Dr. Jones if needed -Re order home medication Prednisone 5mg Qday. - Patient insisted on going home. Despite leukocytosis, patient is clinically doing well. On room air, ambulating. - I think it is reasonable for him to go home and follow up with PCP in a week. Continue Levaquin for 5 more days. Pleural effusions, chronic -Continue Lasix and Aldactone -Follow up Chest xray if patient worsens HTN, Chronic -Resume home medications DVT prophylaxis: Lovenox Discharge patient to home Condition on discharge: Improved Regular Diet as tolerated Ad Karen activity Rx written: - Levaquin 750mg Qday x 5 days. Follow-up with primary care physician within one week. Problem Qualifiers (1) Pneumonia: Qualified Code: J18.9 - Pneumonia of both lower lobes due to infectious organism Erica Smith DO Jul 12, 2017 14:39
--- NOTE | 2017-07-12 17:12 | EKG ---
Date Performed: 07/11/2017 Time Performed: 16:12:23 PTAGE: 82 years EKG: SINUS BRADYCARDIA WITH OCCASIONAL SUPRAVENTRICULAR PREMATURE COMPLEXES LOW QRS VOLTAGE IN E XTREMITY LEADS When compared to previous tracing, no significant change. BORDERLINE ECG PREVIOUS TRACING : 10/04/2016 17.22 DOCTOR: Maurizio Peña Interpretating Date/Time 07/12/2017 17:10:10
== END 2017-07-12 15:05 | disposition home health service (06) | DRG 195 ==
LOC: NEPC 15:10 → NEDA 17:04 → N05A 18:52
PROVIDERS: ADMIT Hospitalist; ATTEND Hospitalist
DX: J18.9 Pneumonia, unspecified organism (principal); I11.0 Hypertensive heart disease with heart failure; I50.9 Heart failure, unspecified; I25.10 Atherosclerotic heart disease of native coronary artery without angina pectoris; Y95 Nosocomial condition; K21.9 Gastro-esophageal reflux disease without esophagitis; K74.60 Unspecified cirrhosis of liver; Z85.038 Personal history of other malignant neoplasm of large intestine; Z87.891 Personal history of nicotine dependence; I25.2 Old myocardial infarction; Z92.3 Personal history of irradiation; Z92.21 Personal history of antineoplastic chemotherapy; Z79.52 Long term (current) use of systemic steroids; Z85.828 Personal history of other malignant neoplasm of skin; Z95.5 Presence of coronary angioplasty implant and graft
CPT/HCPCS: 71020; 80048; 80053; 82550; 83880; 84484; 85007; 85027; 85610; 85730; 87040; 93005; 94620; J0456; J0696; J1650; J7050; J7512

== ENCOUNTER → 2017-07-16 | Outpatient (CLI) | payer MEDICARE ==
[~2017-07-16] MED LIST changes: +FURO40TA PO; -LACT PO; +LACT1CAP20 PO; +LEVA750T9 PO; +MEDICAL COMPRES1 MIS; -MELA5CAP2 PO; +METR-1 PO; -MULT1TAB93; -MYCO500 PO; -NYST10007 TOPICAL; +POTA20TA5 PO; +PRED2.5T PO; +SPIR100T PO
[2017-07-16 11:15] LABS: AUTOMATED NEUTROPHIL # 5.8 TH/MM3 (1.8-7.7); BASOPHIL # 0.1 TH/MM3 (0-0.2); BASOPHIL % 0.4 % (0.0-2.0); EOSINOPHIL # 0.1 TH/MM3 (0-0.4); EOSINOPHIL % 0.7 % (0.0-4.0); HEMATOCRIT 31.5 % (39.0-51.0); LYMPH % 61.8 % (9.0-44.0); MEAN CELL VOLUME 88.6 FL (80.0-100.0); MEAN CORPUSCULAR HEMOGLOBIN 29.9 PG (27.0-34.0); MEAN CORPUSCULAR HGB CONC 33.8 % (32.0-36.0); MONO % 4.1 % (0.0-8.0); PLATELET COUNT 111 TH/MM3 (150-450); RED BLOOD COUNT 3.55 MIL/MM3 (4.50-5.90); RED CELL DISTRIBUTION WIDTH 18.8 % (11.6-17.2); WHITE BLOOD COUNT 17.7 TH/MM3 (4.0-11.0)
[2017-07-16 11:21] LABS: HEMO FLAGS AUTO DIFF
[2017-07-16 12:06] LABS: BANDS 1 % (0-6); NEUTROPHIL # MANUAL DIFF 8.5 TH/MM3 (1.8-7.7); PLATELET ESTIMATE SMEAR LOW (NORMAL); PLATELET MORPHOLOGY NORMAL (NORMAL); POLYS (SEG NEUTROPHILS) 47 % (16-70); SCAN/DIFF FINAL DIFF MANUAL; WBC DIFF SAMPLE 100
== END ==
LOC: CLAB 10:43
PROVIDERS: ATTEND Hospitalist
DX: J90 Pleural effusion, not elsewhere classified (principal); J18.9 Pneumonia, unspecified organism
CPT/HCPCS: 36415; 85007; 85027

== ENCOUNTER 2017-07-19 11:37 | Emergency (ER) | payer MEDICARE ==
[~2017-07-19] VITALS: Ht 170.2 cm; Wt 66.0 kg
[~2017-07-19 11:37] MED LIST changes: -FURO40TA PO; -LACT1CAP20 PO; -MEDICAL COMPRES1 MIS; -METR-1 PO; -POTA20TA5 PO; -PRED2.5T PO; -SPIR100T PO
[2017-07-19 11:42] VITALS: BP 116/56; PULSE 69; RESP 17; TEMP 98.4; O2SAT 97
--- NOTE | 2017-07-19 11:49 | PD ---
HPI Chief Complaint: GI Complaint Time Seen by Provider: 11:49 Travel History International Travel<30 days: No Contact w/Intl Traveler<30days: No Traveled to known affect area: No History of Present Illness HPI Patient comes in for evaluation from his primary care doctor's office for possible C. difficile. Patient was recently the hospital on antibiotics for pneumonia. Patient states he finished antibiotics yesterday. Patient states he been having nonbloody diarrhea over the past 3 days. Patient states it is constant. Denies any change in color of stool. Denies any fevers with this, abdominal pain, back pain, nausea, vomiting, chest pain, shortness of breath. Patient is complaining of some pain around his rectum from frequent wiping without radiation. PFSH Past Medical History Arthritis: No Cancer: Yes (colon) Cardiac Catheterization: Yes Cardiovascular Problems: Yes (cardiac cath) Chemotherapy: Yes (11/04-12/06) Chest Pain: Yes Congestive Heart Failure: Yes Cerebrovascular Accident: No Diabetes: No Endocrine: No Gastrointestinal Disorders: Yes (colon ca) GERD: Yes Genitourinary: No Headaches: No Hepatitis: No Hiatal Hernia: Yes (hernia repair / Dr. John Jones) Hypertension: Yes Musculoskeletal: Yes Neurologic: Yes (wedginers disease) Psychiatric: Yes Respiratory: Yes Myocardial Infarction: Yes (SEP 2015) Radiation Therapy: Yes (11/04-12/06) Seizures: No Thyroid Disease: No Past Surgical History Abdominal Surgery: Yes (colon cancer surgery 2004) Cardiac Surgery: Yes (cardiac cath) Ear Surgery: No Endocrine Surgery: No Eye Surgery: Yes (cataract sx) Genitourinary Surgery: No Gynecologic Surgery: No Neurologic Surgery: No Oral Surgery: No Thoracic Surgery: No Other Surgery: Yes (colon ca, eye surgery) Social History Alcohol Use: Yes (glass wine daily) Tobacco Use: No Substance Use: No Allergies-Medications (Allergen,Severity, Reaction): Coded Allergies: No Known Allergies (Verified , 07/19/17) Reported Meds & Prescriptions Reported Meds & Active Scripts Active Flagyl (Metronidazole) 500 Mg Tab 500 Mg PO TID 10 Days Reported Lasix (Furosemide) 40 Mg Tab 40 Mg PO BID Vitamin B-12 (Cyanocobalamin) 1,000 Mcg Subl 1 Tab SL DAILY Prednisone 5 Mg Tab 5 Mg PO DAILY Coreg (Carvedilol) 3.125 Mg Tab 3.125 Mg PO BID Review of Systems Except as stated in HPI: all other systems reviewed are Neg Physical Exam Narrative GENERAL: Well-developed, well nourished, in no acute distress, and non-ill appearing. SKIN: Focused skin assessment warm and dry. No skin tenting appreciated. HEAD: Atraumatic. Normocephalic. EYES: Pupils equal and round. EOMI. No scleral icterus. No injection or drainage. ENT: No nasal bleeding or discharge. Mucous membranes pink and moist. NECK: Trachea midline. Supple. No nuclear rigidity. CARDIOVASCULAR: Regular rate and rhythm. No murmur appreciated. RESPIRATORY: No accessory muscle use. No respiratory distress. Decreased breath sounds throughout. GASTROINTESTINAL: Abdomen soft, non-tender, nondistended, and no guarding. Hepatic and splenic margins not palpable. Hyperactive bowel sounds 4. No pulsatile mass. MUSCULOSKELETAL: No obvious deformities. No clubbing. No cyanosis. No edema. Full range of motion. NEUROLOGICAL: Awake and alert. No obvious cranial nerve deficits. Motor grossly within normal limits. Normal speech. PSYCHIATRIC: Appropriate mood and affect; insight and judgment normal. Data Data Last Documented VS Vital Signs Date Time Temp Pulse Resp B/P Pulse Ox O2 Delivery O2 Flow Rate FiO2 07/19/17 11:58 97.8 63 18 137/63 98 Room Air Orders Complete Blood Count With Diff (07/19/17 11:53) Iv Access Insert/Monitor (07/19/17 11:53) Ecg Monitoring (07/19/17 11:53) Oximetry (07/19/17 11:53) Sodium Chloride 0.9% Flush (Ns Flush) (07/19/17 12:00) C Diff Toxin Pcr (07/19/17 11:53) Basic Metabolic Panel (Bmp) (07/19/17 11:53) Magnesium (Mg) (07/19/17 12:20) Metronidazole (Flagyl) (07/19/17 13:00) Protein Corrected Calcium(Pcc) (07/19/17 12:20) Labs Laboratory Tests Test 07/19/17 12:20 White Blood Count 16.9 TH/MM3 Red Blood Count 3.47 MIL/MM3 Hemoglobin 10.6 GM/DL Hematocrit 30.9 % Mean Corpuscular Volume 89.0 FL Mean Corpuscular Hemoglobin 30.5 PG Mean Corpuscular Hemoglobin 34.3 % Concent Red Cell Distribution Width 19.1 % Platelet Count 88 TH/MM3 Mean Platelet Volume 8.8 FL Neutrophils (%) (Auto) 28.8 % Lymphocytes (%) (Auto) 66.9 % Monocytes (%) (Auto) 2.8 % Eosinophils (%) (Auto) 0.7 % Basophils (%) (Auto) 0.8 % Neutrophils # (Auto) 4.9 TH/MM3 Lymphocytes # (Auto) 11.3 TH/MM3 Monocytes # (Auto) 0.5 TH/MM3 Eosinophils # (Auto) 0.1 TH/MM3 Basophils # (Auto) 0.1 TH/MM3 CBC Comment AUTO DIFF Differential Total Cells 100 Counted Neutrophils % (Manual) 24 % Band Neutrophils % 2 % Lymphocytes % 67 % Monocytes % 6 % Eosinophils % 1 % Neutrophils # (Manual) 4.4 TH/MM3 Differential Comment FINAL DIFF MANUAL Smudge Cells PRESENT Platelet Estimate LOW Platelet Morphology Comment NORMAL Tear Drop Cells 1+ Ovalocytes 1+ Acanthocytes OCC Sodium Level 139 MEQ/L Potassium Level 3.7 MEQ/L Chloride Level 104 MEQ/L Carbon Dioxide Level 26.7 MEQ/L Anion Gap 8 MEQ/L Blood Urea Nitrogen 19 MG/DL Creatinine 1.00 MG/DL Estimat Glomerular Filtration 72 ML/MIN Rate Random Glucose 86 MG/DL Calcium Level 7.4 MG/DL Protein Corrected Calcium 8.7 MG/DL Magnesium Level 1.9 MG/DL Total Protein 4.8 GM/DL [facility] Medical Decision Making Medical Screen Exam Complete: Yes Emergency Medical Condition: Yes Differential Diagnosis Electorally abnormality, dehydration, C. difficile, diarrhea, other Narrative Course Patient looks great, non-ill appearing. The patient is tolerating fluids and is well hydrated. I suspect C. difficile by history. The abdominal exam is without any masses, distension, or significant tenderness. There is no reported blood in the stool. No clinical evidence by history, exam, or evaluation to suspect appendicitis, obstruction or other acute surgical abdomen at this time. The patient was tolerating fluids at time of discharge. It was discussed with the patient and his family, diagnosis, and plan of care and to follow up with the patients primary physician within the next 3-5 days. The parent was also informed that they may return here for follow up if they are unable to follow up with their doctor. Abdominal warnings were discussed. The patient was instructed to return sooner if the patient worsens in anyway, especially if the abdominal pain changes, the patient experiences more pain, is not tolerating fluids, increased diarrhea, bloody stools, the patient develops persistent vomiting, has decreased activity, or dizziness with standing or as needed. The patient agreed with plan. Patient in no obvious distress upon re-evaluation. All pertinent laboratory result(s) discussed with patient/family with the exception of C. difficile which is currently pending. Patient was asked if they wanted to speak to my attending, which the patient did not wish to do at this time. Discussed patient with Dr. Sandoval prior discharge, who is in agreement with plan of care and disposition. Any questions/concerns in reference to patient diagnosis/ condition discussed and clarified prior to patient's discharge. Reinforced sheer importance of close follow up with patient's primary physician or primary care clinic. Instructed patient to return to ED immediately, if symptoms return/ worsen. Pt showed understanding of above instructions. Further instructions and recommendations were detailed in discharge paperwork. Pt ambulated without difficulty out of ED at discharge. Diagnosis Primary Impression: Diarrhea Qualified Code: A09 - Diarrhea of presumed infectious origin Patient Instructions: Acute Diarrhea (GEN), Clostridium Difficile Infection (DC ), General Instructions Additional Instructions: Follow-up with your primary care physician in 3-5 days for reevaluation. Take all medication as prescribed. Drink plenty of non-caffeinated and nonalcoholic fluids. Return to the emergency department if symptoms get worse, fevers, unable tolerate fluids, chest pain, shortness breath, or for other concerns. Med/Other Pt SpecificInfo: Prescription(s) given Scripts Metronidazole (Flagyl)500 Mg [id number] Mg PO TID 10 Days Ref 0 Prov:Kumar Sandoval MD 07/19/17 Disposition: 01 DISCHARGE HOME Condition: Stable Maxime Bryant Jul 19, 2017 11:49
[2017-07-19 11:52] VITALS: BP 137/63; PULSE 63; RESP 18; TEMP 97.8; O2SAT 98
[2017-07-19 11:58] VITALS: BP 137/63; PULSE 63; RESP 18; TEMP 97.8; O2SAT 98
[2017-07-19] MEDS ORDERED: SODIUM CHLORIDE 0.9% FLUSH 10 ML FLUSH IV FLUSH PRN (12:00)
[2017-07-19 12:43] LABS: AUTOMATED NEUTROPHIL # 4.9 TH/MM3 (1.8-7.7); BASOPHIL # 0.1 TH/MM3 (0-0.2); BASOPHIL % 0.8 % (0.0-2.0); EOSINOPHIL # 0.1 TH/MM3 (0-0.4); EOSINOPHIL % 0.7 % (0.0-4.0); HEMATOCRIT 30.9 % (39.0-51.0); HEMO FLAGS AUTO DIFF; LYMPH % 66.9 % (9.0-44.0); LYMPHOCYTE # 11.3 TH/MM3 (1.0-4.8); MEAN CORPUSCULAR HEMOGLOBIN 30.5 PG (27.0-34.0); MEAN CORPUSCULAR HGB CONC 34.3 % (32.0-36.0); MONO % 2.8 % (0.0-8.0); NEUT % 28.8 % (16.0-70.0); PLATELET COUNT 88 TH/MM3 (150-450); RED BLOOD COUNT 3.47 MIL/MM3 (4.50-5.90); RED CELL DISTRIBUTION WIDTH 19.1 % (11.6-17.2); WHITE BLOOD COUNT 16.9 TH/MM3 (4.0-11.0)
[2017-07-19] MEDS ORDERED: metroNIDAZOLE 500 MG TAB PO ONE (13:00)
[2017-07-19 13:05] LABS: BICARBONATE 26.7 MEQ/L (21.0-32.0); MAGNESIUM 1.9 MG/DL (1.5-2.5); POTASSIUM 3.7 MEQ/L (3.5-5.1)
[2017-07-19 13:35] LABS: CALCIUM-PROTEIN CORRECTED 8.7 MG/DL (8.5-10.1)
[2017-07-19] MEDS ORDERED: METR-1 PO (13:41)
[2017-07-19 14:17] LABS: ACANTHOCYTES OCC (NORMAL); BANDS 2 % (0-6); EOSINOPHILS 1 % (0-4); NEUTROPHIL # MANUAL DIFF 4.4 TH/MM3 (1.8-7.7); OVALOCYTES 1+ (NORMAL); PLATELET ESTIMATE SMEAR LOW (NORMAL); PLATELET MORPHOLOGY NORMAL (NORMAL); POLYS (SEG NEUTROPHILS) 24 % (16-70); TEARDROP RBCS 1+ (NORMAL); WBC DIFF SAMPLE 100
[2017-07-19 14:18] LABS: SCAN/DIFF FINAL DIFF MANUAL; SMUDGE CELLS PRESENT PRESENT
[2017-07-19 14:43] LABS: C. DIFF EPI 027 PRESUMPTIVE NEGATIVE (NEGATIVE)
[2017-07-22] MEDS ORDERED: MEDICAL COMPRES1 MIS (13:56)
[2017-07-22] MEDS ORDERED: LACT1CAP20 PO (13:56)
[2017-08-07] MEDS ORDERED: PRED2.5T PO (09:48)
[2017-08-07] MEDS ORDERED: SPIR100T PO (09:48)
[2017-08-13] MEDS ORDERED: SPIR100T PO (09:42)
== END 2017-07-19 14:22 | disposition home or self-care (01) ==
LOC: NEPC 11:37
DX: A09 Infectious gastroenteritis and colitis, unspecified (principal); K21.9 Gastro-esophageal reflux disease without esophagitis; I10 Essential (primary) hypertension; Z85.038 Personal history of other malignant neoplasm of large intestine
CPT/HCPCS: 80048; 83735; 84155; 85007; 85027; 87493; 99283

== ENCOUNTER 2017-07-26 00:10 | Observation (INO) | payer MEDICARE ==
[~2017-07-26] VITALS: Ht 170.2 cm; Wt 61.4 kg
[2017-07-26] VITALS (11 sets, daily range): BP systolic 84–123; BP diastolic 52–76; PULSE 53–70; RESP 16–18; TEMP 97.5–98.1; O2SAT 95–100
[~2017-07-26 00:10] MED LIST changes: -ALDA100T PO; -ASPI81CH37 CHEW; -BENZ100 PO; +LACT1CAP20 PO; -LEVA750T9 PO; +MEDICAL COMPRES1 MIS
[2017-07-26] MEDS ORDERED: PRED5TAB PO (00:44)
--- NOTE | 2017-07-26 00:50 | PD ---
HPI Chief Complaint: Respiratory Symptoms Time Seen by Provider: 00:45 Travel History International Travel<30 days: No Contact w/Intl Traveler<30days: No Traveled to known affect area: No History of Present Illness HPI The patient is a 82-year-old male who presents to the emergency department for shortness of breath. The patient's shortness of breath is worse with lying supine, he has a history of similar shortness of breath secondary to her pleural effusion. The patient states he has had approximately 5 thoracentesis procedures over the last year for recurrent pleural effusion. The patient had one approximately 4-6 weeks ago while in [place] and had approximately 1-1/2 L of fluid removed. The patient was then admitted to the hospital several weeks ago for pneumonia, was treated, was subsequently discharged home. The patient denies any new cough, chest pain, nausea, vomiting , or abdominal pain. Symptoms are moderate, worse with lying supine, and there are no current alleviating factors. PFSH Past Medical History Arthritis: No Cancer: Yes (colon) Cardiac Catheterization: Yes Cardiovascular Problems: Yes (cardiac cath) Chemotherapy: Yes (11/04-12/06) Chest Pain: Yes Congestive Heart Failure: Yes Cerebrovascular Accident: No Diabetes: No Endocrine: No Gastrointestinal Disorders: Yes (colon ca) GERD: Yes Genitourinary: No Headaches: No Hepatitis: No Hiatal Hernia: Yes (hernia repair 2016w/ Dr. John Jones) Hypertension: Yes Implanted Vascular Access Dvce: No Medical other: Yes (non alcoholic cirrhosis) Musculoskeletal: Yes Neurologic: Yes (wedginers disease) Psychiatric: Yes Respiratory: Yes Myocardial Infarction: Yes (SEP 2015) Radiation Therapy: Yes (11/04-12/06) Seizures: No Thyroid Disease: No Past Surgical History Abdominal Surgery: Yes (colon cancer surgery 2004) Cardiac Surgery: Yes (cardiac cath) Ear Surgery: No Endocrine Surgery: No Eye Surgery: Yes (cataract sx) Genitourinary Surgery: No Gynecologic Surgery: No Neurologic Surgery: No Oral Surgery: No Thoracic Surgery: No Other Surgery: Yes (colon ca, eye surgery) Social History Alcohol Use: Yes (glass wine daily) Tobacco Use: No Substance Use: No Allergies-Medications (Allergen,Severity, Reaction): Coded Allergies: No Known Allergies (Verified , 07/26/17) Reported Meds & Prescriptions Reported Meds & Active Scripts Active Acidophilus Lactobacillus (Lactobacillus Acidophilus) 1 Each Capsule 1 Cap PO DIRECTED Reported Prednisone 5 Mg Tab 5 Mg PO BID Lasix (Furosemide) 40 Mg Tab 40 Mg PO BID Vitamin B-12 (Cyanocobalamin) 1,000 Mcg Subl 1 Tab SL DAILY Coreg (Carvedilol) 3.125 Mg Tab 3.125 Mg PO BID Review of Systems Except as stated in HPI: all other systems reviewed are Neg General / Constitutional: No: Fever Cardiovascular: No: Chest Pain or Discomfort Respiratory: Positive: Shortness of Breath, Orthopnea Gastrointestinal: No: Nausea, Vomiting Musculoskeletal: No: Edema Physical Exam Narrative GENERAL: Awake, alert, nontoxic-appearing 82-year-old male who appears his stated age and is in no acute respiratory distress. SKIN: Focused skin assessment warm/dry. HEAD: Atraumatic. Normocephalic. EYES: Pupils equal and round. No scleral icterus. No injection or drainage. ENT: No nasal bleeding or discharge. Mucous membranes pink and moist. NECK: Trachea midline. No JVD. CARDIOVASCULAR: Regular rate and rhythm. No murmur appreciated. RESPIRATORY: No accessory muscle use. Diminished breath sounds in the right base. GASTROINTESTINAL: Abdomen soft, non-tender, nondistended. No rebound tenderness. MUSCULOSKELETAL: No obvious deformities. No clubbing. No cyanosis. No edema. NEUROLOGICAL: Awake and alert. No obvious cranial nerve deficits. Motor grossly within normal limits. Normal speech. PSYCHIATRIC: Appropriate mood and affect; insight and judgment normal. Data Data Last Documented VS Vital Signs Date Time Temp Pulse Resp B/P (MAP) Pulse Ox O2 Delivery O2 Flow Rate FiO2 07/26/17 03:07 65 18 115/56 (75) 97 Room Air 07/26/17 00:14 97.9 Orders Orders Complete Blood Count With Diff (07/26/17 00:45) Basic Metabolic Panel (Bmp) (07/26/17 00:45) Act Partial Throm Time (Ptt) (07/26/17 00:45) Prothrombin Time / Inr (Pt) (07/26/17 00:45) Protein Corrected Calcium(Pcc) (07/26/17 01:35) Admit Order (Ed Use Only) (07/26/17 03:04) Labs Laboratory Tests Test 07/26/17 00:50 07/26/17 01:35 White Blood Count 19.9 TH/MM3 Red Blood Count 3.48 MIL/MM3 Hemoglobin 10.3 GM/DL Hematocrit 31.5 % Mean Corpuscular Volume 90.6 FL Mean Corpuscular Hemoglobin 29.5 PG Mean Corpuscular Hemoglobin Concent 32.6 % Red Cell Distribution Width 19.2 % Platelet Count 186 TH/MM3 Mean Platelet Volume 9.2 FL CBC Comment AUTO DIFF Differential Total Cells Counted 100 Neutrophils % (Manual) 14 % Band Neutrophils % 1 % Lymphocytes % 84 % Monocytes % 1 % Neutrophils # (Manual) 3.0 TH/MM3 Differential Comment FINAL DIFF MANUAL Smudge Cells PRESENT Platelet Estimate NORMAL Platelet Morphology Comment NORMAL Acanthocytes 1+ Keratocytes OCC Prothrombin Time 12.6 SEC Prothromb Time International Ratio 1.1 RATIO Activated Partial Thromboplast Time 22.9 SEC Blood Urea Nitrogen 22 MG/DL Creatinine 0.96 MG/DL Random Glucose 81 MG/DL Total Protein 4.5 GM/DL Calcium Level 7.0 MG/DL Sodium Level 140 MEQ/L Potassium Level 4.2 MEQ/L Chloride Level 107 MEQ/L Carbon Dioxide Level 26.4 MEQ/L Anion Gap 7 MEQ/L Estimat Glomerular Filtration Rate 75 ML/MIN Protein Corrected Calcium 8.4 MG/DL MDM Medical Decision Making Medical Screen Exam Complete: Yes Emergency Medical Condition: Yes Medical Record Reviewed: Yes Interpretation(s) Laboratory Tests Test 07/26/17 00:50 07/26/17 01:35 White Blood Count 19.9 TH/MM3 Red Blood Count 3.48 MIL/MM3 Hemoglobin 10.3 GM/DL Hematocrit 31.5 % Mean Corpuscular Volume 90.6 FL Mean Corpuscular Hemoglobin 29.5 PG Mean Corpuscular Hemoglobin Concent 32.6 % Red Cell Distribution Width 19.2 % Platelet Count 186 TH/MM3 Mean Platelet Volume 9.2 FL CBC Comment AUTO DIFF Prothrombin Time 12.6 SEC Prothromb Time International Ratio 1.1 RATIO Activated Partial Thromboplast Time 22.9 SEC Blood Urea Nitrogen 22 MG/DL Creatinine 0.96 MG/DL Random Glucose 81 MG/DL Calcium Level 7.0 MG/DL Sodium Level 140 MEQ/L Potassium Level 4.2 MEQ/L Chloride Level 107 MEQ/L Carbon Dioxide Level 26.4 MEQ/L Anion Gap 7 MEQ/L Estimat Glomerular Filtration Rate 75 ML/MIN Differential Diagnosis Differential diagnosis includes pleural effusion, malignant pleural effusion, transudative pleural effusion, pneumonia, cancer, congestive heart failure. Narrative Course IV was established, labs are drawn and sent, and the patient was placed on cardiac telemetry monitoring and continuous pulse oximetry monitoring. I reviewed the patient's chest x-ray that was performed on July 25, the patient has a large right pleural effusion. The patient will need an ultrasound-guided thoracentesis, however, it is currently Saturday morning the patient would be unable to have the procedure obtained as an outpatient until next Saturday. I had a discussion with the patient regarding outpatient thoracentesis next week versus 23 hour observation. The patient states he is symptomatic and does not want to wait until next week to have a thoracentesis. Therefore, the patient will be 23 hour observation for therapeutic thoracentesis. The patient may benefit from evaluation by CVT for possible pleurodesis as this is his fifth admission for therapeutic thoracentesis. Physician Communication Physician Communication The on-call medical service was paged for 23 hour observation. I discussed the patient with Dr. Reynolds who agrees with 23 hour observation. Diagnosis Primary Impression: Pleural effusion Admitting Information Admitting Physician Requests: Observation Condition: Stable Chance Caldera MD Jul 26, 2017 00:50
[2017-07-26 01:12] LABS: HEMATOCRIT 31.5 % (39.0-51.0); MEAN CELL VOLUME 90.6 FL (80.0-100.0); MEAN CORPUSCULAR HEMOGLOBIN 29.5 PG (27.0-34.0); MEAN CORPUSCULAR HGB CONC 32.6 % (32.0-36.0); PLATELET COUNT 186 TH/MM3 (150-450); RED BLOOD COUNT 3.48 MIL/MM3 (4.50-5.90); RED CELL DISTRIBUTION WIDTH 19.2 % (11.6-17.2); WHITE BLOOD COUNT 19.9 TH/MM3 (4.0-11.0)
[2017-07-26 01:14] LABS: HEMO FLAGS AUTO DIFF
[2017-07-26 01:29] LABS: APTT (PATIENT) 22.9 SEC (24.3-30.1); INTERNATIONAL NORMALIZED RATIO 1.1 RATIO; PROTHROMBIN TIME - PATIENT 12.6 SEC (9.8-11.6)
[2017-07-26 02:21] LABS: BICARBONATE 26.4 MEQ/L (21.0-32.0); POTASSIUM 4.2 MEQ/L (3.5-5.1)
[2017-07-26 02:32] LABS: BANDS 1 % (0-6); POLYS (SEG NEUTROPHILS) 14 % (16-70); WBC DIFF SAMPLE 100
[2017-07-26 02:35] LABS: CALCIUM-PROTEIN CORRECTED 8.4 MG/DL (8.5-10.1)
[2017-07-26 02:36] LABS: PLATELET ESTIMATE SMEAR NORMAL (NORMAL); PLATELET MORPHOLOGY NORMAL (NORMAL); SMUDGE CELLS PRESENT PRESENT
[2017-07-26 02:37] LABS: ACANTHOCYTES 1+ (NORMAL); KERATOCYTES OCC (NORMAL)
[2017-07-26 03:04] LABS: SCAN/DIFF FINAL DIFF MANUAL
[2017-07-26] MEDS ORDERED: NALOXONE HCL 0.4 MG/ML AMP IV PRN (03:15)
[2017-07-26] MEDS ORDERED: SODIUM CHLORIDE 0.9% FLUSH 10 ML FLUSH IV FLUSH PRN (03:15)
[2017-07-26] MEDS ORDERED: ACETAMINOPHEN 325 MG TAB PO ONE (06:00)
[2017-07-26] MEDS ORDERED: SODIUM CHLORIDE 0.9% FLUSH 10 ML FLUSH IV FLUSH SCH (09:00)
[2017-07-26] MEDS ORDERED: CARVEDILOL 3.125 MG TAB PO SCH (09:00)
--- NOTE | 2017-07-26 10:11 | HHI.HP ---
[facility] Harmony García MD Admission Diagnosis large right pleural effusion Diagnoses: Chief Complaint: Shortness of breath Travel History International Travel<30 Days: No Contact w/Intl Traveler <30 Da: No Traveled to Known Affected Are: No History of Present Illness Written by Bib Roberts, acting as scribe for Dr. Abel on 07/26/17 at 10:11. 82-year-old male with past medical history of Matti's vasculitis, HTN, colon cancer, CAD, and recurrent pleural effusions who presented for progressive worsening shortness of breath. The patient states he came to the hospital to get a thoracentesis. Currently satting well on room air. He states he has no shortness of breath with exertion and at rest. Shortness of breath gets worse whenever he lies flat and is improved with sitting. He's been having worsening shortness of breath for the past few days and feels like his pleural effusion is back. He has had about 5 thoracentesis over the past year. His lead refinery supervisor is Dr. murguia. He states Dr. murguia is been managing this with Lasix. The patient states that Dr. murguia told him that he was too frail to have surgery evaluation for recurrent pleural effusion. The patient declines a thoracic surgery consultation at this time and is asking for discharge after thoracentesis so that he can follow-up with Dr. murguia. He feels like he's had swelling of his lower extremities lately. Has caregivers at home. Review of Systems Except as stated in HPI: all other systems reviewed are Neg Past Family Social History Past Medical History Recurrent pleural effusion History of CAD History of colon cancer Wojciech's vasculitis Past Surgical History Colon resection Multiple thoracentesis Reported Medications Reported Meds & Active Scripts Active Acidophilus Lactobacillus (Lactobacillus Acidophilus) 1 Each Capsule 1 Cap PO DIRECTED Reported Prednisone 5 Mg Tab 5 Mg PO BID Lasix (Furosemide) 40 Mg Tab 40 Mg PO BID Vitamin B-12 (Cyanocobalamin) 1,000 Mcg Subl 1 Tab SL DAILY Coreg (Carvedilol) 3.125 Mg Tab 3.125 Mg PO BID Allergies: Coded Allergies: No Known Allergies (Verified , 07/26/17) Active Ordered Medications Current Medications Medications (Trade) Dose Ordered Sig/Chantel Route Start Time Stop Time Status Last Admin (NS Flush) 2 ml UNSCH PRN IV FLUSH 07/26/17 03:15 (NS Flush) 2 ml BID IV FLUSH 07/26/17 09:00 07/26/17 08:23 (Narcan Inj) 0.4 mg UNSCH PRN IV 07/26/17 03:15 (Coreg) 3.125 mg BID PO 07/26/17 09:00 07/26/17 08:23 Family History Mother and sister had breast cancer Social History Quit smoking 50 years ago Quit drinking one year ago Lives at home with 24-hour support Physical Exam Vital Signs Vital Signs Date Time Temp Pulse Resp B/P (MAP) Pulse Ox O2 Delivery O2 Flow Rate FiO2 07/26/17 07:45 97.5 56 16 121/60 (80) 100 07/26/17 07:17 12 07/26/17 06:50 53 07/26/17 05:47 97.7 60 18 121/59 (79) 95 07/26/17 05:07 07/26/17 04:40 59 18 123/61 (81) 97 Room Air 07/26/17 03:07 65 18 115/56 (75) 97 Room Air 07/26/17 02:18 62 18 109/56 (73) 97 Room Air 07/26/17 00:58 99 Room Air 07/26/17 00:36 61 18 116/55 (75) 98 Room Air 07/26/17 00:14 97.9 70 18 84/52 (63) 98 Room Air Physical Exam GENERAL: Well-developed fair-nourished elderly male. In no acute distress. On room air. SKIN: Warm and dry. No lesions noted. HEENT: Normocephalic. Pupils equal and round. Mucous membranes pink and moist. CARDIOVASCULAR: Regular rate and rhythm. Aortic murmur appreciated. RESPIRATORY: No accessory muscle use. Clear to auscultation. Decreased breath sounds in the right mid to lower lung base. GASTROINTESTINAL: Abdomen soft, non-tender, nondistended. Bowel sounds x4. MUSCULOSKELETAL: No obvious deformities. No clubbing or cyanosis. No edema. NEUROLOGICAL: Awake and alert. No focal neurological deficits. Moves upper and lower extremities spontaneously. Normal speech. PSYCHIATRIC: Appropriate mood and affect; insight and judgment normal. Laboratory Laboratory Tests Test 07/26/17 00:50 07/26/17 01:35 White Blood Count 19.9 Red Blood Count 3.48 Hemoglobin 10.3 Hematocrit 31.5 Mean Corpuscular Volume 90.6 Mean Corpuscular Hemoglobin 29.5 Mean Corpuscular Hemoglobin Concent 32.6 Red Cell Distribution Width 19.2 Platelet Count 186 Mean Platelet Volume 9.2 CBC Comment AUTO DIFF Differential Total Cells Counted 100 Neutrophils % (Manual) 14 Band Neutrophils % 1 Lymphocytes % 84 Monocytes % 1 Neutrophils # (Manual) 3.0 Differential Comment FINAL DIFF MANUAL Smudge Cells PRESENT Platelet Estimate NORMAL Platelet Morphology Comment NORMAL Acanthocytes 1+ Keratocytes OCC Prothrombin Time 12.6 Prothromb Time International Ratio 1.1 Activated Partial Thromboplast Time 22.9 Blood Urea Nitrogen 22 Creatinine 0.96 Random Glucose 81 Total Protein 4.5 Calcium Level 7.0 Sodium Level 140 Potassium Level 4.2 Chloride Level 107 Carbon Dioxide Level 26.4 Anion Gap 7 Estimat Glomerular Filtration Rate 75 Protein Corrected Calcium 8.4 Result Diagram: 07/26/17 0050 07/26/17 0135 Caprini VTE Risk Assessment Caprini VTE Risk Assessment: Mod/High Risk (score >= 2) VTE Pharm Contraindication: Postop bleeding Caprini Risk Assessment Model Point Value = 1 Point Value = 2 Point Value = 3 Point Value = 5 Age 41-60 Minor surgery BMI > 25 kg/m2 Swollen legs Varicose veins or History of unexplained or recurrent spontaneous Oral contraceptives or hormone replacement Sepsis (< 1 month) Serious lung disease, including pneumonia (< 1 month) Abnormal pulmonary function Acute myocardial infarction Congestive heart failure (< 1 month) History of inflammatory bowel disease Medical patient at bed rest Age 61-74 Arthroscopic surgery Major open surgery (> 45 min) Laparoscopic surgery (> 45 min) Malignancy Confined to bed (> 72 hours) Immobilizing plaster cast Central venous access Age >= 75 History of VTE Family history of VTE Factor V Leiden Prothrombin [id number] Lupus anticoagulant Anticardiolipin antibodies Elevated serum homocysteine Heparin-induced thrombocytopenia Other congenital or acquired thrombophilia Stroke (< 1 month) Elective arthroplasty Hip, pelvis, or leg fracture Acute spinal cord injury (< 1 month) Prophylaxis Regimen Total Risk Factor Score Risk Level Prophylaxis Regimen 0-1 Low Early ambulation 2 Moderate Order ONE of the following: *Sequential Compression Device (SCD) *Heparin 5000 units SQ BID 3-4 Higher Order ONE of the following medications: *Heparin 5000 units SQ TID *Enoxaparin/Lovenox 40 mg SQ daily (WT < 150 kg, CrCl > 30 mL/min) *Enoxaparin/Lovenox 30 mg SQ daily (WT < 150 kg, CrCl > 10-29 mL/min) *Enoxaparin/Lovenox 30 mg SQ BID (WT < 150 kg, CrCl > 30 mL/min) AND/OR *Sequential Compression Device (SCD) 5 or more Highest Order ONE of the following medications: *Heparin 5000 units SQ TID (Preferred with Epidurals) *Enoxaparin/Lovenox 40 mg SQ daily (WT < 150 kg, CrCl > 30 mL/min) *Enoxaparin/Lovenox 30 mg SQ daily (WT < 150 kg, CrCl > 10-29 mL/min) *Enoxaparin/Lovenox 30 mg SQ BID (WT < 150 kg, CrCl > 30 mL/min) AND *Sequential Compression Device (SCD) Assessment and Plan Assessment and Plan 82-year-old male with past medical history of Matti's vasculitis, HTN, colon cancer, CAD, and recurrent pleural effusions who presented for progressive worsening shortness of breath Recurrent right pleural effusion with progressively worsening shortness of breath: Previous records reviewed, previous thoracenteses were transudate and in no infection or malignancy was found. Chest x-ray 07/25 personally reviewed and compared to image from 07/11 which does definitely show significant increase in right-sided pleural effusion. -Therapeutic thoracentesis -Continue Lasix -Continue outpatient follow-up with patient's lead refinery supervisor Dr. murguia Leukocytosis: CBC 19.9, previously 16.9 on 07/19/17. Afebrile. Likely secondary to chronic steroid use. Monitor. DVT prophylaxis: SCDs Disposition: Consulted IR for therapeutic thoracentesis today. After thoracentesis, if no complications, discharge planning. This note was transcribed by suleman [Armando Mccartney]. I, Dr. Mary Abel personally performed the history, physical exam, and medical decision making; and confirmed the accuracy of the information in the transcribed note. Authenticated by Dr. Mary Abel on 07/26/17 at 10:14. Discussed Condition With Patient, case management Bib Roberts Jul 26, 2017 10:11 Mary Abel MD Jul 26, 2017 10:15
--- NOTE | 2017-07-26 12:22 | RADRPT ---
EXAM DATE/TIME: 07/26/2017 11:54 [facility] COMPARISON: CHEST EXPIRATION ONLY, October 05, 2016, 10:39. INDICATIONS : Post thoracentesis Evaluate for pneumothorax. MEDICAL HISTORY : Cardiovascular disease. Matti's vasculitis. osteopenia. colorectal cancer SURGICAL HISTORY : Inguinal hernia repair. Colectomy 2004. Ostomy reversal 2005. Cardiac stent ENCOUNTER: Subsequent ACUITY: 2 days PAIN SCORE: 0/10 LOCATION: Bilateral chest FINDINGS: Portable upright expiratory view of the chest demonstrates no pneumothorax following thoracentesis. T he right pleural effusion has resolved. There is minimal left basilar pleural-parenchymal opacity. In creased density in the right proximal humerus is stable. CONCLUSION: No pneumothorax following recent thoracentesis. Right pleural effusion is no longer present. Elgin Zaragoza MD on July 26, 2017 at 12:20 Board Certified Radiologist. This report was verified electronically.
[2017-07-26] MEDS ORDERED: LIDOCAINE HCL 1% 20 ML VIAL ONE ×2 (12:23→12:24)
--- NOTE | 2017-07-26 12:23 | RADRPT ---
EXAM DATE/TIME: 07/26/2017 11:22 [facility] COMPARISON: CHEST EXPIRATION ONLY, July 26, 2017, 11:54. US GUIDED THORACENTESIS RIGHT, October 05, 2016, 10: 27. INDICATIONS : Right pleural effusion. MEDICAL HISTORY : Carcinoma, colon. Wedginers disease. Shingles. Carcinoma, skin. Heart attack. Non-alcoholic cirrhos is. SURGICAL HISTORY : Cardiac catheterization. Colectomy. Thoracentesis. ENCOUNTER: Subsequent ACUITY: 2 weeks PAIN SCORE: 2/10 LOCATION: Right chest FLUID: Total volume of 1300 cc of cloudy, yellow fluid was removed. Fluid was discarded. Thoracentesis was therapeutic only. TECHNIQUE: 1. Ultrasound guidance for thoracentesis. 2. Thoracentesis. The risks, benefits, and alternatives to ultrasound guided thoracentesis were explained to the patien t in lay simple terms, including the risk of bleeding and infection. Written and verbal informed con sent was obtained. Appropriate area for thoracentesis was marked under ultrasound guidance with the patient in the uprig ht position. Overlying skin was prepped and draped in the usual sterile fashion and with local anest hetic, a dermatotomy was made with an 11 blade scalpel. A 6 Beninese thoracentesis catheter was placed in the pleural space and fluid was removed. Catheter was then removed and a sterile dressing applie d. There were no immediate complications. The patient tolerated the procedure well and the left the ultrasound suite in stable condition. Chest radiograph is to be obtained. CONCLUSION: Uncomplicated ultrasound guided thoracentesis. Anthony Richmond MD on July 26, 2017 at 12:21 Board Certified Radiologist. This report was verified electronically.
[2017-07-26] MEDS ORDERED: FUROSEMIDE 40 MG TAB PO SCH (21:00)
[2017-07-26] MEDS ORDERED: predniSONE 5 MG TAB PO SCH (21:00)
[2017-08-07] MEDS ORDERED: SPIR100T PO (09:48)
[2017-08-07] MEDS ORDERED: PRED2.5T PO (09:48)
[2017-08-13] MEDS ORDERED: SPIR100T PO (09:42)
== END 2017-07-26 15:52 | disposition home or self-care (01) ==
LOC: NEPC 00:10 → NEDA 03:06 → NEPGCP 05:35
PROVIDERS: ADMIT Family Medicine; ATTEND Family Medicine
DX: J90 Pleural effusion, not elsewhere classified (principal); I25.10 Atherosclerotic heart disease of native coronary artery without angina pectoris; I25.2 Old myocardial infarction; I77.6 Arteritis, unspecified; I11.0 Hypertensive heart disease with heart failure; I50.9 Heart failure, unspecified; K21.9 Gastro-esophageal reflux disease without esophagitis; K74.60 Unspecified cirrhosis of liver; M85.80 Other specified disorders of bone density and structure, unspecified site; Z79.899 Other long term (current) drug therapy; Z87.891 Personal history of nicotine dependence; Z95.5 Presence of coronary angioplasty implant and graft; Z85.038 Personal history of other malignant neoplasm of large intestine
CPT/HCPCS: 32555; 71010; 80048; 84155; 85007; 85027; 85610; 85730; C1729; G0378

== ENCOUNTER 2017-07-29 12:05 | Inpatient (IN) | payer MEDICARE ==
[~2017-07-29] VITALS: Ht 170.2 cm; Wt 62.5 kg
[2017-07-29] VITALS (8 sets, daily range): BP systolic 103–134; BP diastolic 55–70; PULSE 58–71; RESP 15–18; TEMP 97.4–98; O2SAT 95–100
[~2017-07-29 12:05] MED LIST changes: -MEDICAL COMPRES1 MIS
--- NOTE | 2017-07-29 12:27 | PD ---
HPI Chief Complaint: Respiratory Distress Time Seen by Provider: 12:15 Travel History International Travel<30 days: No Contact w/Intl Traveler<30days: No Traveled to known affect area: No History of Present Illness HPI Patient comes back to the emergency complaining of shortness of breath when lying flat. Patient states feels similar to previous pleural effusions. Patient's had a total 6 thoracentesis done over the past year most recently 3 days ago. Patient states he began getting shortness of breath again yesterday. Improves with sitting up or standing. Worse with lying flat. He denies any pain with this. Denies any fevers, chest pain, dyspnea on exertion, nausea, vomiting, back pain, or abdominal pain. Patient states he has not contacted or followed up with his dictating transcribing machine servicer, Dr. Jones. States that he contacted his primary care doctor told to come back to the emergency department today. PFSH Past Medical History Arthritis: No Cancer: Yes (colon) Cardiac Catheterization: Yes Cardiovascular Problems: Yes (cardiac cath) Chemotherapy: Yes (11/04-12/06) Chest Pain: Yes Congestive Heart Failure: Yes Cerebrovascular Accident: No Diabetes: No Endocrine: No Gastrointestinal Disorders: Yes (colon ca) GERD: Yes Genitourinary: No Headaches: No Hepatitis: No Hiatal Hernia: Yes (hernia repair 2016w/ Dr. John Jones) Hypertension: Yes Implanted Vascular Access Dvce: No Musculoskeletal: Yes Neurologic: Yes (wedginers disease) Psychiatric: Yes Respiratory: Yes Myocardial Infarction: Yes (SEP 2015) Radiation Therapy: Yes (11/04-12/06) Seizures: No Thyroid Disease: No Past Surgical History Abdominal Surgery: Yes (colon cancer surgery 2004) Cardiac Surgery: Yes (cardiac cath) Ear Surgery: No Endocrine Surgery: No Eye Surgery: Yes (cataract sx) Genitourinary Surgery: No Gynecologic Surgery: No Neurologic Surgery: No Oral Surgery: No Thoracic Surgery: No Other Surgery: Yes (colon ca, eye surgery) Social History Alcohol Use: Yes (glass wine daily) Tobacco Use: No Substance Use: No Allergies-Medications (Allergen,Severity, Reaction): Coded Allergies: No Known Allergies (Verified , 07/26/17) Reported Meds & Prescriptions Reported Meds & Active Scripts Active Reported Prednisone 5 Mg Tab 5 Mg PO BID Lasix (Furosemide) 40 Mg Tab 40 Mg PO BID Vitamin B-12 (Cyanocobalamin) 1,000 Mcg Subl 1,000 Mcg SL DAILY Coreg (Carvedilol) 3.125 Mg Tab 3.125 Mg PO BID Review of Systems Except as stated in HPI: all other systems reviewed are Neg Physical Exam Narrative GENERAL: Well-developed, well nourished, in no acute distress, and non-ill appearing. SKIN: Focused skin assessment warm and dry. Dressing noted in place right posterior thoracic cavity from recent thoracentesis that is dry clean intact. HEAD: Atraumatic. Normocephalic. EYES: Pupils equal and round. EOMI. No scleral icterus. No injection or drainage. ENT: No nasal bleeding or discharge. Mucous membranes pink and moist. NECK: Trachea midline. Supple. No nuclear rigidity. CARDIOVASCULAR: Regular rate and rhythm. Murmur appreciated. RESPIRATORY: No accessory muscle use. No respiratory distress. Decreased breath sounds bilaterally lower lobes. 97 percent oxygen saturation on room air. Patient speaking in full sentences without difficulty. MUSCULOSKELETAL: No obvious deformities. No clubbing. No cyanosis. No edema. Full range of motion. NEUROLOGICAL: Awake and alert. No obvious cranial nerve deficits. Motor grossly within normal limits. Normal speech. PSYCHIATRIC: Appropriate mood and affect; insight and judgment normal. Data Data Last Documented VS Vital Signs Date Time Temp Pulse Resp B/P (MAP) Pulse Ox O2 Delivery O2 Flow Rate FiO2 07/29/17 13:41 95 Nasal Cannula 2.00 07/29/17 13:41 62 18 107/55 (72) 07/29/17 12:11 98.0 Orders Orders Complete Blood Count With Diff (07/29/17 12:22) Basic Metabolic Panel (Bmp) (07/29/17 12:22) Act Partial Throm Time (Ptt) (07/29/17 12:22) Prothrombin Time / Inr (Pt) (07/29/17 12:22) Iv Access Insert/Monitor (07/29/17 12:22) Ecg Monitoring (07/29/17 12:22) Oximetry (07/29/17 12:22) Oxygen Administration (07/29/17 12:22) Chest, Single Ap (07/29/17 12:22) Sodium Chloride 0.9% Flush (Ns Flush) (07/29/17 12:30) Protein Corrected Calcium(Pcc) (07/29/17 12:30) Consult Pulmonology (07/29/17 ) (Hub Use Only)Inp Phy Cons/Ref (07/29/17 ) Admit Order (Ed Use Only) (07/29/17 14:02) Labs Laboratory Tests Test 07/29/17 12:30 White Blood Count 13.1 TH/MM3 Red Blood Count 3.51 MIL/MM3 Hemoglobin 10.4 GM/DL Hematocrit 31.5 % Mean Corpuscular Volume 89.7 FL Mean Corpuscular Hemoglobin 29.6 PG Mean Corpuscular Hemoglobin Concent 33.0 % Red Cell Distribution Width 18.8 % Platelet Count 101 TH/MM3 Mean Platelet Volume 8.0 FL Neutrophils (%) (Auto) 28.9 % Lymphocytes (%) (Auto) 66.6 % Monocytes (%) (Auto) 2.6 % Eosinophils (%) (Auto) 1.2 % Basophils (%) (Auto) 0.7 % Neutrophils # (Auto) 3.8 TH/MM3 Lymphocytes # (Auto) 8.7 TH/MM3 Monocytes # (Auto) 0.3 TH/MM3 Eosinophils # (Auto) 0.2 TH/MM3 Basophils # (Auto) 0.1 TH/MM3 CBC Comment AUTO DIFF Differential Total Cells Counted 100 Neutrophils % (Manual) 31 % Band Neutrophils % 1 % Lymphocytes % 63 % Monocytes % 3 % Eosinophils % 2 % Neutrophils # (Manual) 4.2 TH/MM3 Differential Comment FINAL DIFF MANUAL Platelet Estimate LOW Platelet Morphology Comment NORMAL Red Cell Morphology Comment NORMAL Prothrombin Time 12.4 SEC Prothromb Time International Ratio 1.1 RATIO Activated Partial Thromboplast Time 26.5 SEC Blood Urea Nitrogen 23 MG/DL Creatinine 1.06 MG/DL Random Glucose 134 MG/DL Total Protein 4.7 GM/DL Calcium Level 7.1 MG/DL Sodium Level 140 MEQ/L Potassium Level 3.9 MEQ/L Chloride Level 106 MEQ/L Carbon Dioxide Level 24.6 MEQ/L Anion Gap 9 MEQ/L Estimat Glomerular Filtration Rate 67 ML/MIN Protein Corrected Calcium 8.4 MG/DL [facility] Medical Decision Making Medical Screen Exam Complete: Yes Emergency Medical Condition: Yes Interpretation(s) Chest x-ray read by the radiologist shows: Consolidative changes and small effusion is seen on the right. Trace effusion is present the left. The heart and pulmonary vascularity are normal. Differential Diagnosis Pleural effusion, pneumonia, electrolyte abnormality, other Narrative Course Patient's exam. Initial laboratory and radiological studies were ordered. After reviewing chest x-ray with Dr. Fajardo, call was placed to patient's dictating transcribing machine servicer who requested patient be admitted for recurrent pleural effusion feeling patient may need more intervention than just a thoracentesis. Discussed all findings and plan care of patient is agreeable for admission. All questions were answered. Discussed patient with residents personal banking advisor who is agreeable to admit the patient. Patient remain stable throughout ED course. Physician Communication Physician Communication [id number] Mcrae patient's dictating transcribing machine servicer, who recommends having patient admitted for recurrent pleural effusions and he will consult. 1400 discussed patient with residents personal banking advisor, who are agreeable to admit the patient for Dr. Stack. Diagnosis Primary Impression: Recurrent pleural effusion on right Admitting Information Admitting Physician Requests: Admit Condition: Stable Maxime Bryant Jul 29, 2017 12:27
[2017-07-29] MEDS ORDERED: SODIUM CHLORIDE 0.9% FLUSH 10 ML FLUSH IVF PRN (12:30)
[2017-07-29 12:44] LABS: AUTOMATED NEUTROPHIL # 3.8 TH/MM3 (1.8-7.7); BASOPHIL # 0.1 TH/MM3 (0-0.2); BASOPHIL % 0.7 % (0.0-2.0); EOSINOPHIL # 0.2 TH/MM3 (0-0.4); EOSINOPHIL % 1.2 % (0.0-4.0); HEMATOCRIT 31.5 % (39.0-51.0); LYMPH % 66.6 % (9.0-44.0); LYMPHOCYTE # 8.7 TH/MM3 (1.0-4.8); MEAN CELL VOLUME 89.7 FL (80.0-100.0); MEAN CORPUSCULAR HEMOGLOBIN 29.6 PG (27.0-34.0); MONO % 2.6 % (0.0-8.0); NEUT % 28.9 % (16.0-70.0); PLATELET COUNT 101 TH/MM3 (150-450); RED BLOOD COUNT 3.51 MIL/MM3 (4.50-5.90); RED CELL DISTRIBUTION WIDTH 18.8 % (11.6-17.2); WHITE BLOOD COUNT 13.1 TH/MM3 (4.0-11.0)
[2017-07-29 12:53] LABS: APTT (PATIENT) 26.5 SEC (24.3-30.1); INTERNATIONAL NORMALIZED RATIO 1.1 RATIO; PROTHROMBIN TIME - PATIENT 12.4 SEC (9.8-11.6)
[2017-07-29 12:54] LABS: HEMO FLAGS AUTO DIFF
[2017-07-29 13:01] LABS: BICARBONATE 24.6 MEQ/L (21.0-32.0); POTASSIUM 3.9 MEQ/L (3.5-5.1)
--- NOTE | 2017-07-29 13:15 | RADRPT ---
EXAM DATE/TIME: 07/29/2017 12:28 [facility] COMPARISON: CHEST SINGLE AP, July 25, 2017, 17:49. INDICATIONS : Patient has shortness of breath with history of pleural effusion. MEDICAL HISTORY : Cardiovascular disease. Congestive heart failure. Hypertension.Colorectal cancer. Hernia SURGICAL HISTORY : Colon resection. thorocentesis cardiac catheterization ENCOUNTER: Initial ACUITY: 2 days PAIN SCORE: 2/10 LOCATION: Bilateral upper chest FINDINGS: Consolidative changes and small effusion is seen on the right. Trace effusion is present the left. The heart and pulmonary vascularity are normal. CONCLUSION: Consolidative changes and small effusion on the right stable in the interval. Afshin Shin MD FACR on July 29, 2017 at 13:13 Board Certified Radiologist. This report was verified electronically.
[2017-07-29 13:19] LABS: CALCIUM-PROTEIN CORRECTED 8.4 MG/DL (8.5-10.1)
[2017-07-29 13:58] LABS: BANDS 1 % (0-6); EOSINOPHILS 2 % (0-4); NEUTROPHIL # MANUAL DIFF 4.2 TH/MM3 (1.8-7.7); PLATELET ESTIMATE SMEAR LOW (NORMAL); PLATELET MORPHOLOGY NORMAL (NORMAL); POLYS (SEG NEUTROPHILS) 31 % (16-70); SCAN/DIFF FINAL DIFF MANUAL; WBC DIFF SAMPLE 100
--- NOTE | 2017-07-29 14:44 | HHI.HP ---
[facility] Service Family Medicine Primary Care Physician Harmony García MD Admission Diagnosis recurrent pleural effusion Diagnoses: Chief Complaint: SOB International Travel<30 Days: No Contact w/Intl Traveler<30days: No History of Present Illness Patient is a 82-year-old male with history of Matti's vasculitis, colon cancer, recurrent pleural effusions who presents with shortness of breath. Patient states he thinks the pleural effusion came back. He last had one drained last Saturday by interventional radiology. He says after that, he was back to baseline. Was doing fine until Saturday around in, and then was having shortness of breath again. He states that he has had 6 thoracentesis this year, but they're becoming more frequent. He states he is not sure of the cause. The shortness of breath is worse when he is laying down, improves with sitting up or standing. Denies any chest pain. States the shortness of breath is improved with oxygen. No oxygen at home. He also had 2 thoracentesis done in the last 5 weeks in [place]. Denies any cough. History of Matti's, which he states he has blurry vision and dizziness with. Was diagnosed 7 years ago. Denies any rhinorrhea, sore throat, cold symptoms. States he uses a walker at home, otherwise is fairly independent. He does live with a delivery driver/supervisor. Eyes any chest pain, abdominal pain, leg pain. (Soren Jiménez MD, R2) Review of Systems Constitutional: COMPLAINS OF: Weight loss, DENIES: Fever, Chills, Night Sweats Eyes: COMPLAINS OF: Vision loss Respiratory: DENIES: Cough, Sputum production Cardiovascular: COMPLAINS OF: Lower Extremity Edema Gastrointestinal: COMPLAINS OF: Constipation, Diarrhea, DENIES: Abdominal pain , Black stools, Bloody stools, Nausea, Vomiting Genitourinary: DENIES: Urinary frequency, Urgency, Dysuria, Nocturia Neurologic: DENIES: Headache, Paresthesias (Soren Jiménez MD, R2) Past Family Social History Past Medical History Matti's vasculitis Colon cancer-dx 10 year ago; s/p partial colectomy and chemotherapy Past Surgical History Partial colectomy Inguinal hernia repair Reported Medications Reported Meds & Active Scripts Active Reported Prednisone 5 Mg Tab 5 Mg PO BID Lasix (Furosemide) 40 Mg Tab 40 Mg PO BID Vitamin B-12 (Cyanocobalamin) 1,000 Mcg Subl 1,000 Mcg SL DAILY Coreg (Carvedilol) 3.125 Mg Tab 3.125 Mg PO BID (Soren Jiménez MD, R2) Allergies: Coded Allergies: No Known Allergies (Verified , 07/26/17) Active Ordered Medications Active Medications Sodium Chloride (NS Flush) 2 ml UNSCH PRN IVF; Start 07/29/17 at 12:30 Family History Mother, sister-breast cancer Father-stomach ulcers Sister-thyroid disease Social History Owned restaurant Second-hand smoke in restaurtant; smoked for few years in 20s Alcohol-none in last year Illicit drugs-denies (Soren Jiménez MD, R2) Physical Exam Vital Signs Vital Signs Date Time Temp Pulse Resp B/P (MAP) Pulse Ox O2 Delivery O2 Flow Rate FiO2 07/29/17 13:41 95 Nasal Cannula 2.00 07/29/17 13:41 62 18 107/55 (72) 95 Nasal Cannula 2.00 07/29/17 12:25 15 07/29/17 12:11 98.0 71 15 103/56 (72) 96 Physical Exam GENERAL: This is a well-nourished, well-developed patient, in no apparent distress. Lying in bed SKIN: Scattered ecchymoses on lower legs. Cool and dry. HEAD: Atraumatic. Normocephalic. EYES: Pupils equal round and reactive. Extraocular motions intact. No scleral icterus. No injection or drainage. ENT: Nose without bleeding. Throat without erythema, tonsillar hypertrophy or exudate. Uvula midline. Airway patent. NECK: Trachea midline. No JVD or lymphadenopathy. Supple, nontender. CARDIOVASCULAR: Regular rate and rhythm without murmurs, gallops, or rubs. RESPIRATORY: Coarse breath sounds. Decreased breath sounds, especially in lower lobes. E to A changes on right lower lung. No increased work of breathing. GASTROINTESTINAL: Abdomen soft, non-tender, nondistended. No hepato-splenomegaly , or palpable masses. No guarding. MUSCULOSKELETAL: Extremities without clubbing, cyanosis. No calf tenderness. 1+ edema up to ankle bilaterally. Pulses intact. NEUROLOGICAL: Awake and alert. NFND. Motor and sensory grossly within normal limits. Normal speech. Laboratory Laboratory Tests Test 07/29/17 12:30 White Blood Count 13.1 Red Blood Count 3.51 Hemoglobin 10.4 Hematocrit 31.5 Mean Corpuscular Volume 89.7 Mean Corpuscular Hemoglobin 29.6 Mean Corpuscular Hemoglobin Concent 33.0 Red Cell Distribution Width 18.8 Platelet Count 101 Mean Platelet Volume 8.0 Neutrophils (%) (Auto) 28.9 Lymphocytes (%) (Auto) 66.6 Monocytes (%) (Auto) 2.6 Eosinophils (%) (Auto) 1.2 Basophils (%) (Auto) 0.7 Neutrophils # (Auto) 3.8 Lymphocytes # (Auto) 8.7 Monocytes # (Auto) 0.3 Eosinophils # (Auto) 0.2 Basophils # (Auto) 0.1 CBC Comment AUTO DIFF Differential Total Cells Counted 100 Neutrophils % (Manual) 31 Band Neutrophils % 1 Lymphocytes % 63 Monocytes % 3 Eosinophils % 2 Neutrophils # (Manual) 4.2 Differential Comment FINAL DIFF MANUAL Platelet Estimate LOW Platelet Morphology Comment NORMAL Red Cell Morphology Comment NORMAL Prothrombin Time 12.4 Prothromb Time International Ratio 1.1 Activated Partial Thromboplast Time 26.5 Blood Urea Nitrogen 23 Creatinine 1.06 Random Glucose 134 Total Protein 4.7 Calcium Level 7.1 Sodium Level 140 Potassium Level 3.9 Chloride Level 106 Carbon Dioxide Level 24.6 Anion Gap 9 Estimat Glomerular Filtration Rate 67 Protein Corrected Calcium 8.4 (Soren Jiménez MD, R2) Result Diagram: 07/29/17 1230 07/29/17 1230 Imaging Last Impressions Chest X-Ray 07/29/17 1222 Signed Impressions: Service Date/Time: Saturday, July 29, 2017 12:28 - CONCLUSION: Consolidative changes and small effusion on the right stable in the interval. Afshin Shin MD FACR (Soren Jiménez MD, R2) Caprini VTE Risk Assessment Caprini VTE Risk Assessment: Mod/High Risk (score >= 2) Caprini Risk Assessment Model Point Value = 1 Point Value = 2 Point Value = 3 Point Value = 5 Age 41-60 Minor surgery BMI > 25 kg/m2 Swollen legs Varicose veins or History of unexplained or recurrent spontaneous Oral contraceptives or hormone replacement Sepsis (< 1 month) Serious lung disease, including pneumonia (< 1 month) Abnormal pulmonary function Acute myocardial infarction Congestive heart failure (< 1 month) History of inflammatory bowel disease Medical patient at bed rest Age 61-74 Arthroscopic surgery Major open surgery (> 45 min) Laparoscopic surgery (> 45 min) Malignancy Confined to bed (> 72 hours) Immobilizing plaster cast Central venous access Age >= 75 History of VTE Family history of VTE Factor V Leiden Prothrombin [id number] Lupus anticoagulant Anticardiolipin antibodies Elevated serum homocysteine Heparin-induced thrombocytopenia Other congenital or acquired thrombophilia Stroke (< 1 month) Elective arthroplasty Hip, pelvis, or leg fracture Acute spinal cord injury (< 1 month) Prophylaxis Regimen Total Risk Factor Score Risk Level Prophylaxis Regimen 0-1 Low Early ambulation 2 Moderate Order ONE of the following: *Sequential Compression Device (SCD) *Heparin 5000 units SQ BID 3-4 Higher Order ONE of the following medications: *Heparin 5000 units SQ TID *Enoxaparin/Lovenox 40 mg SQ daily (WT < 150 kg, CrCl > 30 mL/min) *Enoxaparin/Lovenox 30 mg SQ daily (WT < 150 kg, CrCl > 10-29 mL/min) *Enoxaparin/Lovenox 30 mg SQ BID (WT < 150 kg, CrCl > 30 mL/min) AND/OR *Sequential Compression Device (SCD) 5 or more Highest Order ONE of the following medications: *Heparin 5000 units SQ TID (Preferred with Epidurals) *Enoxaparin/Lovenox 40 mg SQ daily (WT < 150 kg, CrCl > 30 mL/min) *Enoxaparin/Lovenox 30 mg SQ daily (WT < 150 kg, CrCl > 10-29 mL/min) *Enoxaparin/Lovenox 30 mg SQ BID (WT < 150 kg, CrCl > 30 mL/min) AND *Sequential Compression Device (SCD) (Soren Jiménez MD, R2) Assessment and Plan Assessment and Plan 82-year-old male with history of granulomatosis with polyangiitis, colon cancer presents with recurrent pleural effusions. We'll admit for management and pulmonary consult. Code Status Full Discussed Condition With Dr. Benavides (Soren Jiménez MD, R2) Attending Attestation The patient has been seen and examined. The chart and all resident notes have been reviewed. I agree that inpatient care is appropriate and that a two midnight stay is expected for the reasons documented in the resident history and physical. I have discussed this with the resident and certify the resident s order for inpatient admission. Patient seen and examined. Case reviewed and discussed Please refer to resident H&P for further details regarding HPI, ROS, PMH, SurgHx , FH and SocHx In summary, patient is an 82yoM with a history of Matti's presenting with several days of worsening shortness of breath Patient is known to Dr. Jones, pulmonology, and has required therapeutic thoracenteses for recurrent pleural effusions. He is seen in the ED today with his caregivers stating he has 3 days of worsening symptoms similar to prior episodes requiring thoracentesis GENERAL: wdwn male, resting in bed. SKIN: Warm and dry. no rashes HEAD: Normocephalic. AT EYES: No scleral icterus. No injection or drainage. ENT: OP clear. MMM NC in place NECK: Supple, trachea midline. No JVD or lymphadenopathy. CARDIOVASCULAR: Regular rate and rhythm without murmurs, gallops, or rubs. RESPIRATORY: Breath sounds diminished at bases bilaterally. No accessory muscle use. GASTROINTESTINAL: Abdomen soft, non-tender, nondistended. Normal active BS MUSCULOSKELETAL: No cyanosis, 1+/trace LE edema bilaterally to above the ankles. No calf tenderness. BACK: Nontender without obvious deformity. No CVA tenderness. NEURO: Awake and alert. Normal speech. CN grossly intact. A/P: 82yoM with: Shortness of breath Matti's vasculitis Pleural effusion Colon cancer-dx 10 year ago; s/p partial colectomy and chemotherapy Thrombocytopenia Leukocytosis Hypocalcemia Pulmonology consultation Consider IR consult for drainage Supplemental oxygen Resume home meds as needed Patient seen and examined. Case reviewed and discussed Agree with plan of care as discussed with me and documented in the resident note. (Angelika Stack MD) Problem List: (1) Recurrent pleural effusion on right ICD Codes: J90 - Pleural effusion, not elsewhere classified Status: Acute Plan: Patient has had recurrent pleural effusions and subsequent thoracentesis. 6 in the last year. 3 in the last couple months. Recurrent shortness of breath. Previous thoracenteses showed evidence of transudate, without infection or malignancy. WBC elevated to 13.1. No other signs of SIRS. Pt is on steroids, may be causing the leukocytosis. CXR (07/29): Consolidative changes and small effusion on the right stable in the interval -Consult pulmonology, pt known to Dr. Jones -US-guided thoracentesis -Fluid studies and cultures -Continue Lasix BID -O2 via NC as needed -Blood cultures -Continue prednisone 5mg BID (2) Granulomatosis with polyangiitis ICD Codes: M31.30 - Matti's granulomatosis without renal involvement Plan: History of granulomatosis with polyangiitis. -Patient on chronic steroids. Continue as above. -Continue to monitor. (3) History of colon cancer ICD Codes: Z85.038 - Personal history of other malignant neoplasm of large intestine Plan: History of colon cancer. S/p partial colectomy and chemotherapy. Bony lesion noted on xray -Continue to follow. F/u outpatient (4) FEN Plan: Fluids: Tolerating PO Electrolytes: monitor, replace PRN Nutrition: heart healthy, NPO at midnight DVT ppx: SCDs; holding chemoppx due to thoracentesis (Soren Jiménez MD, R2) Physician Certification 2 Midnight Certification Type: Admission for Inpatient Services Order for Inpatient Services The services are ordered in accordance with Medicare regulations or non- Medicare payer requirements, as applicable. In the case of services not specified as inpatient-only, they are appropriately provided as inpatient services in accordance with the 2-midnight benchmark. Estimated LOS (days): 2 days is the estimated time the patient will need to remain in the hospital, assuming treatment plan goals are met and no additional complications. Post-Hospital Plan: Home (Soren Jiménez MD, R2) Soren Jiménez MD, R2 Jul 29, 2017 14:43 Angelika Stack MD Jul 29, 2017 23:56
[2017-07-29] MEDS ORDERED: ONDANSETRON HCL 4 MG/2 ML VIAL IVP PRN (15:30)
[2017-07-29] MEDS ORDERED: BISACODYL 10 MG SUPP RECTAL PRN (15:30)
[2017-07-29] MEDS ORDERED: SODIUM CHLORIDE 0.9% FLUSH 10 ML FLUSH IV FLUSH PRN (15:30)
[2017-07-29] MEDS ORDERED: MAGNESIUM HYDROXIDE SUSP 30 ML CUP PO PRN (15:30)
[2017-07-29] MEDS ORDERED: LACTULOSE SYRUP 20 GM/30 ML CUP PO PRN (15:30)
[2017-07-29] MEDS ORDERED: SENNOSIDES 8.6 MG TAB PO PRN (15:30)
[2017-07-29] MEDS ORDERED: NALOXONE HCL 0.4 MG/ML AMP IV PRN (15:30)
[2017-07-29] MEDS: FUROSEMIDE 40 MG TAB PO SCH (21:00)
[2017-07-29] MEDS: SODIUM CHLORIDE 0.9% FLUSH 10 ML FLUSH IV FLUSH SCH (21:00)
[2017-07-29] MEDS: DOCUSATE SODIUM 50 MG/SENNA 8.6 MG TAB PO SCH (21:00)
[2017-07-29] MEDS: predniSONE 5 MG TAB PO SCH (21:10)
[2017-07-29] MEDS: CARVEDILOL 3.125 MG TAB PO SCH (21:10)
[2017-07-29] MEDS: ACETAMINOPHEN 325 MG TAB PO PRN (21:11)
[2017-07-30] VITALS (8 sets, daily range): BP systolic 100–133; BP diastolic 49–69; PULSE 55–73; RESP 16–20; TEMP 97.7–98.1; O2SAT 93–100
[2017-07-30] MEDS: CARVEDILOL 3.125 MG TAB PO SCH ×2 (09:00→20:25)
[2017-07-30] MEDS: DOCUSATE SODIUM 50 MG/SENNA 8.6 MG TAB PO SCH ×2 (09:14→20:27)
[2017-07-30] MEDS: FUROSEMIDE 40 MG TAB PO SCH ×2 (09:15→20:25)
[2017-07-30] MEDS: SODIUM CHLORIDE 0.9% FLUSH 10 ML FLUSH IV FLUSH SCH ×2 (09:16→20:25)
[2017-07-30] MEDS: predniSONE 5 MG TAB PO SCH ×2 (09:17→20:25)
[2017-07-30 10:23] LABS: HEMATOCRIT 29.1 % (39.0-51.0); MEAN CORPUSCULAR HEMOGLOBIN 29.8 PG (27.0-34.0); MEAN CORPUSCULAR HGB CONC 33.1 % (32.0-36.0); PLATELET COUNT 77 TH/MM3 (150-450); RED BLOOD COUNT 3.23 MIL/MM3 (4.50-5.90); RED CELL DISTRIBUTION WIDTH 18.5 % (11.6-17.2); WHITE BLOOD COUNT 10.1 TH/MM3 (4.0-11.0)
[2017-07-30 10:34] LABS: HEMO FLAGS AUTO DIFF
[2017-07-30 11:00] LABS: BICARBONATE 27.7 MEQ/L (21.0-32.0); CALCIUM-PROTEIN CORRECTED 8.7 MG/DL (8.5-10.1); TOTAL BILIRUBIN ADULT 1.1 MG/DL (0.2-1.0)
--- NOTE | 2017-07-30 11:13 | MB ---
cc: SAMM WRIGHT M.D., R. STEVEN DATE OF CONSULTATION: 07/30/2017 HISTORY OF PRESENT ILLNESS Mr. Brewer is an 82-year-old white male whom I first saw in October of last year at which time he had recurrent right pleural effusion. He was originally drained I believe in [place] or [place] back in July of last year and fluid was found to be transudative. We saw him in October in the hospital and pleural fluid was again sampled, transudative with negative cultures and cytologies. He apparently had been fairly stable since that time until he traveled again to [place], [place] where he was for several months. He was rehospitalized there for shortness of breath and pleural effusions have recurred. Fluid was again drained and he had a CT of his chest which revealed no evidence of pulmonary embolism, splenomegaly and a hiatal hernia. Drainage again revealed no evidence of infection or malignancy. Upon the patient's return I saw him as an outpatient on July 16. He was complaining of shortness of breath. A CT scan of his abdomen and chest were done and the CT of his chest revealed minimal right effusion but now a larger left effusion. He also had an enlarged spleen with some fullness at the hilum. I reviewed that scan with radiology. They felt those were probably varices. He does have a history of cirrhosis of the liver documented by GI when they saw him at the end of last year during that October hospitalization. Abdominal scan recently though did not reveal any ascites. The patient had not been consistent about taking his Lasix which apparently had helped in the past so we resumed that but he ended up in the emergency room again last week. He had drainage of 1300 cc of fluid from the right but it was done therapeutically with no analysis. He called again short of breath yesterday and was referred to the emergency room. He has reaccumulation of fluid on the right and is now being admitted for further evaluation and therapy consideration of options given the recurrent nature of this. I am not certain that he is taking his Lasix consistently at this point. He does have some memory loss. ADDITIONAL PAST HISTORY 1. [place] in September 2015, suggestion of diastolic heart failure. 2. Distant history of asbestos exposure in his 20s. 3. History of colon cancer in 2004 for which he underwent surgery, chemotherapy and radiation. 4. Again, after multiple thoracenteses no malignant cells have been found in the chest. ALLERGIES LIPITOR. MEDICATIONS Regular medications: 1. 81 mg aspirin. 2. Carvedilol. 3. Lasix 40 mg, prescribed twice a day. 4. Multiple vitamin. 5. Potassium supplement. FAMILY HISTORY Positive for breast cancer and thyroid cancer. No children. One sister who had both breast and thyroid cancer. SOCIAL HISTORY He is retired from the restaurant business. 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 Single, never . Does not currently drink alcohol. He has a cardiac nurse. REVIEW OF SYSTEMS Shortness of breath. Fatigue. Minimal cough. No purulent sputum or hemoptysis. No chest pain. No increasing edema in his legs. He does have orthopnea and PND. PHYSICAL EXAMINATION GENERAL: A thin elderly white male in no distress at rest. VITAL SIGNS: Temperature 97 degrees, blood pressure 100/60, pulse 70, respirations 18. Sat 93% on room air. HEENT: Sclera anicteric. NECK: No adenopathy in the neck or supraclavicular region. CHEST: Diminished at the bases bilaterally, right greater than left. No wheezes. No rhonchi. HEART: Regular rhythm. No harsh murmur. ABDOMEN: Soft, nontender. EXTREMITIES: 1+ peripheral edema. No cyanosis or clubbing. IMAGING Chest x-ray reveals recurrent right effusion. ASSESSMENT AND RECOMMENDATIONS Mr. Brewer has recurring effusions now over the last year having undergone at least seven or eight thoracenteses on the right. He has several confounding co-morbid factors here including diastolic heart failure, cirrhosis of the liver with portal hypertension, a distant history of asbestos exposure which could be a contributing factor and a prior history of colon cancer, although we have not been able to identify any recurrence of that. I should mention he has never smoked. He has no other significant primary pulmonary disease. There is also a history of Matti's disease that was followed at the [facility]. He has been on prednisone for that. It has been apparently confined to a neuro-ophthalmic presentation. He has never had systemic disease that I am aware of. Mr. Brewer is in need of a specific diagnosis as to the underlying cause of this effusion and hopefully we can identify either a medical therapy or possibly he will need a surgical intervention with pleurodesis to try to resolve these recurring effusions. I am going to hold off doing repeat thoracentesis at present. He will have that at some point during this hospitalization if we do not proceed to surgery. One other abnormality that did arise evaluating his pleural fluid and a peripheral blood smear recently was predominance of small lymphocytes suggesting a possible lymphoproliferative disorder. I have asked hematology to see him to evaluate that. I have also ordered an echocardiogram. Further diagnostic and/or therapeutic intervention will depend on the results of all of these diagnostic studies and his ongoing clinical course. R. MD DELISA Jalloh/CALEB /10:29 AM /10:55 AM
[2017-07-30 12:15] LABS: BANDS 1 % (0-6); BASOPHILS 1 % (0-2); EOSINOPHILS 2 % (0-4); NEUTROPHIL # MANUAL DIFF 2.5 TH/MM3 (1.8-7.7); PLATELET ESTIMATE SMEAR LOW (NORMAL); PLATELET MORPHOLOGY NORMAL (NORMAL); POLYS (SEG NEUTROPHILS) 24 % (16-70); SCAN/DIFF FINAL DIFF MANUAL; WBC DIFF SAMPLE 100
[2017-07-30 12:16] LABS: ACANTHOCYTES OCC (NORMAL); OVALOCYTES 1+ (NORMAL); SMUDGE CELLS PRESENT PRESENT
--- NOTE | 2017-07-30 13:28 | HHI.FPPN ---
Subjective Remarks Patient states that he is doing fine this morning. He did not sleep well because the hospital bed was not comfortable. However, his shortness of breath has improved. He was on his way for his ultrasound. No fever or chills, no chest pain, no abdominal pain, no nausea or vomiting, no constipation or diarrhea. (Rosy Benavides MD R1) Objective Vitals Vital Signs Date Time Temp Pulse Resp B/P (MAP) Pulse Ox O2 Delivery O2 Flow Rate FiO2 07/30/17 12:00 97.9 58 20 133/69 (90) 99 07/30/17 08:00 97.8 55 18 112/56 (74) 100 07/30/17 06:11 97.9 66 16 100/49 (66) 98 07/30/17 01:10 97.9 62 16 117/59 (78) 93 07/29/17 21:39 97.9 63 16 116/64 (81) 95 07/29/17 20:09 61 07/29/17 18:20 97.4 61 18 134/63 (86) 100 07/29/17 17:56 61 16 128/70 (89) 96 07/29/17 17:00 58 16 113/56 (75) 99 Nasal Cannula 2.00 07/29/17 16:14 99 Nasal Cannula 2.00 07/29/17 13:41 95 Nasal Cannula 2.00 07/29/17 13:41 62 18 107/55 (72) 95 Nasal Cannula 2.00 I/O 07/29/17 07/29/17 07/29/17 07/30/17 07/30/17 07/30/17 06:59 14:59 22:59 06:59 14:59 22:59 Intake Total 480 ml Output Total 650 ml Balance -170 ml Intake Oral 480 ml Output Urine Total 650 ml # Bowel Movements 1 (Rosy Benavides MD R1) Result Diagram: 07/30/17 0800 07/30/17 0800 Objective Remarks GENERAL: This is a well-nourished, well-developed patient, in no apparent distress. Lying in bed SKIN: Scattered ecchymoses on lower legs. Cool and dry. HEAD: Atraumatic. Normocephalic. CARDIOVASCULAR: Regular rate and rhythm without gallops, or rubs. Holosystolic murmur. RESPIRATORY: Coarse breath sounds. Decreased breath sounds, especially in lower lobes. No increased work of breathing. GASTROINTESTINAL: Abdomen soft, non-tender, nondistended. No hepato-splenomegaly , or palpable masses. No guarding. MUSCULOSKELETAL: Extremities without clubbing, cyanosis. No calf tenderness. NEUROLOGICAL: Awake and alert. NFND. Motor and sensory grossly within normal limits. Normal speech. (Rosy Benavides MD R1) A/P Assessment and Plan 82-year-old male with history of granulomatosis with polyangiitis, colon cancer presents with recurrent pleural effusions. We'll admit for management and pulmonary consult. Discharge Planning Pt can be discharged once cleared by pulmonology and cause of recurrent pleural effusion identified. (Rosy Benavides MD R1) Attending Attestation Patient seen and examined. Case reviewed and discussed Agree with plan of care as discussed with me and documented in the resident note. (Angelika Stack MD) Problem List: (1) Recurrent pleural effusion on right ICD Codes: J90 - Pleural effusion, not elsewhere classified Status: Acute Plan: Patient has had recurrent pleural effusions and subsequent thoracentesis. 6 in the last year. 3 in the last couple months. Recurrent shortness of breath. Previous thoracenteses showed evidence of transudate, without infection or malignancy. WBC elevated to 13.1. No other signs of SIRS. Pt is on steroids, may be causing the leukocytosis. CXR (07/29): Consolidative changes and small effusion on the right stable in the interval -Consult pulmonology, pt known to Dr. Jones, appreciate recs * Hold off on a repeat thoracentesis at present * Hematology consult for predominance of small lymphocytes in pleural fluid and peripheral blood smear * Echocardiogram * Further diagnostic and or therapeutic intervention will depend on the results of diagnostic studies and clinical course -Cancelled US-guided thoracentesis -Continue Lasix BID -O2 via NC as needed -Blood cultures- NG x 1 day -Continue prednisone 5mg BID (2) Granulomatosis with polyangiitis ICD Codes: M31.30 - Matti's granulomatosis without renal involvement Status: Chronic Plan: History of granulomatosis with polyangiitis. -Patient on chronic steroids. Continue as above. -Continue to monitor. (3) History of colon cancer ICD Codes: Z85.038 - Personal history of other malignant neoplasm of large intestine Status: Chronic Plan: History of colon cancer. S/p partial colectomy and chemotherapy. Bony lesion noted on xray -Continue to follow. F/u outpatient (4) FEN Status: Acute Plan: Fluids: Tolerating PO Electrolytes: monitor, replace PRN Nutrition: Regular diet DVT ppx: SCDs; holding chemoppx due to thoracentesis (Rosy Benavides MD R1) Rosy Benavides MD R1 Jul 30, 2017 13:28 Angelika Stack MD Aug 02, 2017 11:10
[2017-07-30 15:35] LABS: BICARBONATE 26.3 MEQ/L (21.0-32.0); CALCIUM-PROTEIN CORRECTED 8.6 MG/DL (8.5-10.1); POTASSIUM 3.6 MEQ/L (3.5-5.1)
--- NOTE | 2017-07-30 15:39 | ECHRPT ---
Indication: Unspecified combined systolic (congestive) and diastolic (congestive) heart failure CONCLUSIONS Normal left ventricular size and wall thickness. The left ventricular systolic function is normal wi th an estimated ejection fraction in the range of 60-65%. Left ventricular diastolic function parameters a re normal. [id number] aortic valve stenosis. Aortic valve area is 1.1 cm. There is mild to moderate tricuspid valve regurgitation. The estimated pulmonary arterial pressure is 39 mmHg. Mild mitral annular calcification. BP: 133 / 69 HR: 58 Rhythm: Other Technical Quality:Fair FINDINGS LEFT VENTRICLE Normal left ventricular size and wall thickness. The left ventricular systolic function is normal wi th an estimated ejection fraction in the range of 60-65%. Left ventricular diastolic function parameters a re normal. RIGHT VENTRICLE Normal right ventricular size and systolic function. LEFT ATRIUM The left atrial size is normal. RIGHT ATRIUM The right atrial size is normal. ATRIAL SEPTUM Normal atrial septal thickness without atrial level shunting by limited color doppler interrogation. AORTA The aortic root and proximal ascending aorta are normal in size on limited imaging. MITRAL VALVE Mild mitral annular calcification. AORTIC VALVE [id number] aortic valve stenosis. Aortic valve area is 1.1 cm. TRICUSPID VALVE There is mild to moderate tricuspid valve regurgitation. The estimated pulmonary arterial pressure is 39 mmHg. PULMONARY VALVE The pulmonary valve is not well visualized. VESSELS The inferior vena cava is normal in size. PERICARDIUM No pericardial effusion. Wil Marcano MD (Electronically Signed) Final Date:30 July 2017 15:38
[2017-07-30] MEDS: HEPARIN SODIUM - SQ 10,000 UNITS/ML VIAL SQ SCH (20:28)
[2017-07-30] MEDS: ACETAMINOPHEN 325 MG TAB PO PRN (22:08)
[2017-07-31] VITALS (8 sets, daily range): BP systolic 101–128; BP diastolic 51–61; PULSE 53–72; RESP 20; TEMP 97.3–98.5; O2SAT 94–98
[2017-07-31] MEDS: HEPARIN SODIUM - SQ 10,000 UNITS/ML VIAL SQ SCH ×3 (05:13→20:34)
--- NOTE | 2017-07-31 06:06 | MB ---
cc: VERNON THURMAN DATE OF CONSULTATION July 30, 2017. REASON FOR CONSULTATION Patient with anemia, thrombocytopenia, splenomegaly and recurrent pleural effusions. HISTORY OF PRESENT ILLNESS Mr. Brewer is an 82-year-old gentleman who has multiple medical issues including a history of Matti's granulomatosis, anemia, thrombocytopenia, splenomegaly and pleural effusions. He has had a history of recurrent pleural effusions dating back to mid-2015 and since then he has had several pleurocenteses. Thus far the cytology does not indicate any malignancy but there is a mention of small lymphocytes. These effusions have been transudative. It appears that the patient's thrombocytopenia dates back to 2009. His platelet count in 2009 was 87,000. He also has had normocytic normochromic anemia since 2012. This was previously attributed to anemia of chronic inflammation with a background of Matti's granulomatosis. He was found to have splenomegaly in 2010. He has portal hypertension. The patient is now admitted to the hospital with acute dyspnea and recurrent pleural effusion. He recently had the pleural effusion drained. He has lymphocytosis and his peripheral smear was reviewed which showed features concerning for a lymphoproliferative disorder. His CBC reveals a white blood cell count of 10.1, hemoglobin of 9.6 and platelet count of 77,000. His lymphocyte percentage is increased to 71%. Smudge cells were noted on the differential. These findings are concerning for a lymphoproliferative disorder such as chronic lymphocytic leukemia. He has had a CT scan of the chest which showed a very minimal right effusion but a larger left effusion was seen and large spleen was also noted. He also had varices. He also has a history of liver cirrhosis documented by GI. The patient has a prior history of colon cancer treated with surgery and adjuvant chemotherapy with Xeloda. He was diagnosed with colon cancer in 2003. REVIEW OF SYSTEMS A comprehensive 14-point review of systems was completed which is negative except as described in the HPI. PAST MEDICAL HISTORY 1. Recurrent pleural effusions. 2. History of colon cancer treated with surgery and chemotherapy. 3. Distant history of asbestos exposure. 4. Hypertension. 5. Matti's granulomatosis. PAST SURGICAL HISTORY 1. Colon surgery. 2. Multiple thoracenteses. 3. Inguinal hernia repair. MEDICATIONS 1. Carvedilol 3.125 mg p.o. b.i.d. 2. Lasix 40 mg p.o. b.i.d. 3. Prednisone 5 mg p.o. b.i.d. 4. Tylenol 650 p.o. p.r.n. 5. Zofran 4 mg IV q.6 hours p.r.n. 6. Milk of magnesia 30 cc p.o. q.12 hours. 7. 3.2 mg q. 12 hours. 8. Bisacodyl 10 mg p.r.n. 9. Lactulose p.r.n. ALLERGIES No known drug allergies. FAMILY HISTORY Reviewed and is noncontributory to this admission. 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 He has had secondhand exposure to cigarette smoke, also he smoked cigarettes in his 20s. No alcohol abuse. No illicit drug use. PHYSICAL EXAMINATION VITAL SIGNS: Blood pressure 105/62, pulse in the 70s, temperature is 98.1, respiratory rate is 18, O2 sats are 95% on FIO2 of 21%. LABORATORY DATA WBC 10.1, hemoglobin 9.6, MCV 90, platelet count 77,000. Serum chemistries show sodium of 139, potassium 3.6, chloride 105, CO2 26.3, BUN 24, creatinine 1.05, GFR is 68, glucose 154, AST 20, ALT 13, alk phos 68, CRP 0.81, total protein 4.9, albumin is 2.1. IMAGING AND PATHOLOGY Results were reviewed. ASSESSMENT AND PLAN This is an 82-year-old gentleman who has a history of Matti's granulomatosis, recurrent pleural effusions, history of thrombocytopenia, anemia, splenomegaly, liver cirrhosis, esophageal varices who presents to the emergency room with acute dyspnea and is found to have recurrent pleural effusion. He is status post thoracentesis and has had removed approximately 1500 cc of fluid. I have been consulted to make further recommendations since there is suspicion for underlying lymphoproliferative disorder based on his peripheral blood smear review. 1. Mild leukocytosis with increase in absolute lymphocyte count. Peripheral smear has features consistent with lymphoproliferative disorder. 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 The easiest way to confirm this diagnosis is by performing a peripheral blood flow cytometry. We will obtain this testing. He does not appear to be having any constitutional B symptoms and on physical exam there is no evidence of lymphadenopathy. He has had a CT scan of the chest and previously he has had a CT scan of the abdomen and pelvis which did not reveal any lymphadenopathy. I will await the results of the flow cytometry prior to obtaining repeat scans. Splenomegaly can be seen with CLL. He has had splenomegaly for several years but this was attributed to underlying liver cirrhosis. We will check a hepatitis profile. The etiology of liver cirrhosis is unclear at this time. 2. Thrombocytopenia which is chronic. We will check LDH and haptoglobin, hepatitis B and C profile as stated above. Check fibrinogen. 3. History of chronic normocytic normochromic chronic anemia which was thought to be secondary to anemia of chronic inflammation. We will repeat anemia studies, check B12 and folate levels. 4. Recurrent pleural effusions. Unclear etiology at this time. Thank you for allowing me to participate in the care of this patient. I will continue to follow this patient along. MD DALE Forte/MAXIME /12:57 AM /5:35 AM ANNA
[2017-07-31 07:02] LABS: AUTOMATED NEUTROPHIL # 3.6 TH/MM3 (1.8-7.7); BASOPHIL # 0.1 TH/MM3 (0-0.2); BASOPHIL % 0.4 % (0.0-2.0); EOSINOPHIL # 0.1 TH/MM3 (0-0.4); EOSINOPHIL % 0.4 % (0.0-4.0); HEMATOCRIT 28.3 % (39.0-51.0); LYMPH % 70.1 % (9.0-44.0); LYMPHOCYTE # 9.6 TH/MM3 (1.0-4.8); MEAN CELL VOLUME 90.3 FL (80.0-100.0); MEAN CORPUSCULAR HEMOGLOBIN 30.4 PG (27.0-34.0); MEAN CORPUSCULAR HGB CONC 33.7 % (32.0-36.0); MONO % 2.8 % (0.0-8.0); NEUT % 26.3 % (16.0-70.0); PLATELET COUNT 84 TH/MM3 (150-450); RED BLOOD COUNT 3.14 MIL/MM3 (4.50-5.90); WHITE BLOOD COUNT 13.7 TH/MM3 (4.0-11.0)
[2017-07-31 07:17] LABS: HEMO FLAGS AUTO DIFF
[2017-07-31 07:25] LABS: ANION GAP 9 MEQ/L (5-15); BICARBONATE 26.5 MEQ/L (21.0-32.0); BLOOD UREA NITROGEN 24 MG/DL (7-18); CHLORIDE 104 MEQ/L (98-107); FERRITIN 45 NG/ML (26-388); GLOMERULAR FILTRATION RATE 84 ML/MIN (>89); LDH SERUM 182 U/L (87-241); POTASSIUM 3.9 MEQ/L (3.5-5.1); SODIUM (NA) 139 MEQ/L (136-145); TRANSFERRIN IRON PROFILE 188 MG/DL (200-360)
[2017-07-31 07:40] LABS: CALCIUM-PROTEIN CORRECTED 8.9 MG/DL (8.5-10.1)
[2017-07-31 08:28] LABS: METAMYELOCYTES 1 % (0-1); POLYS (SEG NEUTROPHILS) 21 % (16-70); WBC DIFF SAMPLE 100
[2017-07-31 08:30] LABS: ACANTHOCYTES OCC (NORMAL)
[2017-07-31 08:31] LABS: OVALOCYTES 1+ (NORMAL); PLATELET ESTIMATE SMEAR LOW (NORMAL); PLATELET MORPHOLOGY NORMAL (NORMAL); SCAN/DIFF FINAL DIFF MANUAL; SMUDGE CELLS PRESENT PRESENT
[2017-07-31] MEDS: SODIUM CHLORIDE 0.9% FLUSH 10 ML FLUSH IV FLUSH SCH ×2 (09:00→20:35)
[2017-07-31] MEDS: CARVEDILOL 3.125 MG TAB PO SCH ×2 (09:00→20:33)
[2017-07-31] MEDS: DOCUSATE SODIUM 50 MG/SENNA 8.6 MG TAB PO SCH ×2 (09:00→20:33)
[2017-07-31] MEDS: predniSONE 5 MG TAB PO SCH ×2 (09:56→20:33)
[2017-07-31] MEDS: FUROSEMIDE 40 MG TAB PO SCH (09:57)
--- NOTE | 2017-07-31 10:37 | HHI.FPPN ---
Subjective Remarks Patient seen and examined this morning. No acute events overnight. Patient states he is having continued shortness of breath. He has difficulty sleeping, due to worsening SOB when he's laying down. Otherwise, denies any complaints/ concerns. He is eager to know what is causing the effusions. He is requesting another thoracentesis today. Patient denies any fever/chills, chest pain, leg pain. (Soren Jiménez MD, R2) Objective Vitals Vital Signs Date Time Temp Pulse Resp B/P (MAP) Pulse Ox O2 Delivery O2 Flow Rate FiO2 07/31/17 08:00 Nasal Cannula 2.00 07/31/17 04:00 97.8 53 20 111/56 (74) 97 07/31/17 00:00 Nasal Cannula 2.00 07/31/17 00:00 98.0 65 20 101/51 (68) 94 07/30/17 20:00 Nasal Cannula 2.00 07/30/17 20:00 98.1 73 18 105/62 (76) 95 07/30/17 17:21 98 21 07/30/17 16:32 69 07/30/17 16:00 97.7 67 18 102/57 (72) 98 07/30/17 12:00 97.9 58 20 133/69 (90) 99 I/O 07/30/17 07/30/17 07/30/17 07/31/17 07/31/17 07/31/17 07:00 15:00 23:00 07:00 15:00 23:00 Intake Total 480 ml 0 ml 650 ml Output Total 650 ml 650 ml 725 ml Balance -170 ml -650 ml -75 ml Intake Oral 480 ml 0 ml 650 ml IV Total 0 ml Output Urine Total 650 ml 650 ml 725 ml # Bowel Movements 1 4 (Soren Jiménez MD, R2) Result Diagram: 07/31/1713 07/31/17 0613 Objective Remarks GENERAL: NAD, Lying in bed SKIN: Scattered ecchymoses on lower legs. Cool and dry. Pulses intact. CARDIOVASCULAR: Regular rate and rhythm without gallops, or rubs. Systolic murmur. RESPIRATORY: Coarse breath sounds. Decreased breath sounds, especially in lower lobes. No increased work of breathing. GASTROINTESTINAL: Abdomen soft, non-tender, nondistended. No hepato-splenomegaly , or palpable masses. MUSCULOSKELETAL: No edema. No calf tenderness. NEUROLOGICAL: Awake and alert. Normal speech. (Soren Jiménez MD, R2) A/P Assessment and Plan 82-year-old male with history of granulomatosis with polyangiitis, colon cancer presents with recurrent pleural effusions. We'll admit for management and pulmonary consult. Discharge Planning Pt can be discharged once cleared by pulmonology and cause of recurrent pleural effusion identified (Soren Jiménez MD, R2) Attending Attestation Patient seen and examined. Case reviewed and discussed Agree with plan of care as discussed with me and documented in the resident note. (Angelika Stack MD) Problem List: (1) Recurrent pleural effusion on right ICD Codes: J90 - Pleural effusion, not elsewhere classified Status: Acute Plan: Patient has had recurrent pleural effusions and subsequent thoracentesis. 6 in the last year. 3 in the last couple months. Previous thoracenteses showed evidence of transudate, without infection or malignancy. CXR (07/29): Consolidative changes and small effusion on the right stable in the interval -Consult pulmonology, pt known to Dr. 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 Peripheral smear shows smudge cells. History of thrombocytopenia and chronic normocytic anemia as well. History of splenomegaly. Fibrinogen 155. LDH 182. Iron borderline low at 64, ferritin 45. Haptoglobin 45 -Hematology consulted-appreciate recs -Anemia workup: B12, folate pending -Thrombocytopenia workup -Flow cytometry pending to work up CLL -Hepatitis profile pending (3) Aortic valvar stenosis ICD Codes: I35.0 - Nonrheumatic aortic (valve) stenosis Status: Chronic Plan: Systolic murmur on exam. 2D Echo (07/30): Mild to moderate aortic stenosis; EF 60-65%. Normal systolic and diastolic function -Continue to monitor; aortic stenosis may be contributing to his dyspnea (4) Granulomatosis with polyangiitis ICD Codes: M31.30 - Matti's granulomatosis without renal involvement Status: Chronic Plan: History of granulomatosis with polyangiitis. -Patient on chronic steroids. Continue as above. -Continue to monitor. (5) History of colon cancer ICD Codes: Z85.038 - Personal history of other malignant neoplasm of large intestine Status: Chronic Plan: History of colon cancer. S/p partial colectomy and chemotherapy. Bony lesion noted on xray -Continue to follow. F/u outpatient (6) FEN Status: Acute Plan: Fluids: Tolerating PO Electrolytes: monitor, replace PRN Nutrition: Regular diet DVT ppx: heparin/SCDs (Soren Jiménez MD, R2) Problem Qualifiers (1) Aortic valvar stenosis: Qualified Codes: I35.0 - Nonrheumatic aortic (valve) stenosis Soren Jiménez MD, R2 Jul 31, 2017 10:37 Angelika Stack MD Aug 02, 2017 11:11
--- NOTE | 2017-07-31 14:44 | RADRPT ---
EXAM DATE/TIME: 07/31/2017 13:46 [facility] COMPARISON: CT PULMONARY ANGIOGRAM, October 06, 2016, 14:58. CHEST PA & LAT, July 11, 2017, 15:59. INDICATIONS : Short of breath. MEDICAL HISTORY : Cardiovascular disease. Congestive heart failure. Hypertension. colorectal cancer SURGICAL HISTORY : Colon resection. cardiac cath ENCOUNTER: Subsequent ACUITY: 3 days PAIN SCORE: 0/10 LOCATION: Bilateral chest FINDINGS: There is no significant pleural effusion. Large lateral hernia is noted. The heart and pulmonary va scularity are normal. Small area of parenchymal opacity is seen in the left upper lobe new from the comparison study. CONCLUSION: There is no significant pleural effusion. Minimal opacity left upper lobe. Afshin Shin MD FACR on July 31, 2017 at 14:41 Board Certified Radiologist. This report was verified electronically.
--- NOTE | 2017-07-31 15:35 | PD.CONS ---
Consult Service Palliative Care Consult Requested By Dr. Jones Primary Care Physician Harmony García MD Reason for Consultation a. To assist with evaluation and management of symptoms including: Dyspnea b. To assist medical decision maker(s) with: better understanding of current medical conditions; weighing benefits/burdens of medical treatment options; making medical treatment decisions. HPI History of Present Illness Patient is a 82-year-old past medical history of recurrent pleural effusion, colon cancer(s/p colectomy and chemotherapy), CAD, hiatal hernia, hypertension, AR, CHF, Wojciech's vasculitis. Patient came into the emergency room on 07/29/2017 with complaints of shortness of breath. He states he thinks his pleural effusion has come back. His reported patient has a total of 6 thoracentesis done over the past year, with one done recently by interventional radiology during last hospitalization. Last hospitalization patient also has recurrent right pleural effusion. Patient was discharge on 07/26/2017 status post thoracentesis and was told to follow up as outpatient. Patient came back 3 days later resulting in current admission. Patient states shortness of breath is worse when laying down, improved with supplemental oxygen. He has 2 for thoracentesis done in [place] previously as well, when he traveled there to [place] and stayed there for a few months. In the ER: * Pulse is 62, respirations 18, blood pressure is 107/55, pulse ox is 95% on 2 L * WBCs 19.9, hemoglobin is 10.3, hematocrit is 31.5, platelet is 186 * Sodium is 140, potassium is 4.2, chloride is 107, bicarbonate was 26.4, BUN is 22, creatinine is 0.96 * Imaging shows consolidative changes and small effusion on the right, stable in the interval. Patient was admitted and transferred to family medicine services. Pulmonology was consulted. Culture guided thoracentesis was ordered. 07/30/2017-pulmonology came by and evaluated patient. Patient per pulmonology documentation has hadn't undergone at least 7-8 for centesis on the right. 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 Patient also has a history of colon cancer although recurrence have not been identified. 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 One of the abnormalities that pulmonology observe was predominance of small lymphocytes suggesting lymphoproliferative disorder. Oncology was consulted to evaluate. For centesis was placed on hold. 07/31/2017- oncology came and evaluated patient. Oncology sees peripheral smear has features consistent with lymphoproliferative disorder. He may have underlying CLL. The easiest way to confirm diagnosis is performing a blood flow cytometry. Oncology feels that patient does not have any B symptoms and there is no evidence of lymphadenopathy. CT scans of the chest previously did not reveal any lymphadenopathy. Oncology is awaiting flow cytometry prior to repeating scans. Etiology of recurrent pleural effusion remains unclear at this time. Palliative care was consulted for help with advance directive decision-maker is , in terms of addressing goals of therapy. On my visit pt is alert. He is oriented to person, place and date. He is able to tell me why he came to the hospital "I felt short of breath." He is able to relate he was in [facility] and also had recent hospitalization. He is able to list sister phone number of the top of his head. Able to tell me the oncologist name "Dr. Maria." He has capacity to make medical decisions. Discussed with him current test being run. Oncology also came in and spoke to patient during meeting. Oncology feels if it was CLL and early, it would only be watchful waiting, and nothing aggressive. Pt's career coordinator Boni Harrell was also present during some of the conversation. Discussed goals of care. Today he completed Health Care Surrogate as Lucila Bowles ([phone] (cell) & [phone] (she was a previous RN). Alternate Surrogate is Amador Bowles (Lucila's son) who is a physician. In addition he states Boni Harrell (server support technician) and Bhavani Rodriguez can be notified and be informed of his condition. He feels he want to know the reason for his pleural effusion, and is amenable to continue the tests. Discussing code status, and Boni Harrell was present, he states he does not want intubation, but bipap only. I ask him if he would like the input of joy loader before making that decision, he states no. He does endorse he wants cpr/acls/shock/compression. He wants to go home, but still wants to continue workup. He is amenable for me to call Lucila Bowles, I have called and left a message. Function/Cognitive Trajectory dyspnea, recurrent pleural effusion. Review of Systems ROS Limitations: Clinical Condition Constitutional: COMPLAINS OF: Generalized weakness Respiratory: COMPLAINS OF: Shortness of breath (recurrent pleural effusion) Cardiovascular: COMPLAINS OF: Dyspnea on Exertion Psychiatric: COMPLAINS OF: Confusion Past Family Social History Coded Allergies: No Known Allergies (Verified , 07/26/17) Past Medical History Recurrent pleural effusion Colon cancer Asbestosis exposure Willis Fidel No pneumatosis Hypertension CHF CAD AR Past Surgical History Recurrent thoracentesis Colon surgery Inguinal hernia repair Reported Medications Carvedilol Lasix Prednisone Tylenol Zofran Milk of mag Bisacodyl Lactulose Current Medications Medications (Trade) Dose Ordered Sig/Chantel Route Start Time Stop Time Status Last Admin (NS Flush) 2 ml UNSCH PRN IV FLUSH 07/29/17 15:30 (NS Flush) 2 ml BID IV FLUSH 07/29/17 21:00 07/31/17 09:00 (Tylenol) 650 mg Q4H PRN PO 07/29/17 15:30 07/30/17 22:08 (Zofran Inj) 4 mg Q6H PRN IVP 07/29/17 15:30 (Narcan Inj) 0.4 mg UNSCH PRN IV 07/29/17 15:30 (Dior-Colace) 1 tab BID PO 07/29/17 21:00 07/30/17 09:14 (Milk Of Magnesia Liq) 30 ml Q12H PRN PO 07/29/17 15:30 (Senokot) 17.2 mg Q12H PRN PO 07/29/17 15:30 (Dulcolax Supp) 10 mg DAILY PRN RECTAL 07/29/17 15:30 (Lactulose Liq) 30 ml DAILY PRN PO 07/29/17 15:30 (Coreg) 3.125 mg BID PO 07/29/17 21:00 07/30/17 20:25 (Lasix) 40 mg BID PO 07/29/17 21:00 07/31/17 09:57 (Deltasone) 5 mg BID PO 07/29/17 21:00 07/31/17 09:56 (Heparin Inj) 5,000 units Q8HR SQ 07/30/17 22:00 Family History Mother, sister-breast cancer Father-stomach ulcers Sister-thyroid disease Substance Use Tobacco: Secondhand smoke exposure, smoked for a few years during patient's 20s Alcohol: None Prescription med abuse: None Illicits: None Psychosocial History Originally from [facility]. Patient owned restaurants. He is not , and has not children. Has 2 sisters, and 2 nephews (who are physicians). Spiritual/Cultural Factors Religion Health Care Surrogate: Copy in medical record Physical Exam Vital Signs Date Time Temp Pulse Resp B/P (MAP) Pulse Ox O2 Delivery O2 Flow Rate FiO2 07/31/17 14:08 97 07/31/17 12:00 97.3 69 20 117/60 (79) 96 07/31/17 08:00 97.4 54 20 128/59 (82) 95 07/31/17 08:00 Nasal Cannula 2.00 07/31/17 04:00 97.8 53 20 111/56 (74) 97 07/31/17 00:00 Nasal Cannula 2.00 07/31/17 00:00 98.0 65 20 101/51 (68) 94 07/30/17 20:00 Nasal Cannula 2.00 07/30/17 20:00 98.1 73 18 105/62 (76) 95 07/30/17 17:21 98 21 07/30/17 16:32 69 07/30/17 16:00 97.7 67 18 102/57 (72) 98 Exam CONSTITUTIONAL/GENERAL: This is an elderly gentlemen, calm, and in no apparent distress. SKIN: No jaundice, rashes, or lesions. Ecchymoses on upper extremities. No wounds seen anteriorly. Skin temperature appropriate. Not diaphoretic. HEAD: Atraumatic. Normocephalic. EYES: Pupils equal and round and reactive. Extraocular motions intact. No scleral icterus. No injection or drainage. Fundi not examined. ENT: Hearing grossly normal. Nose without bleeding or purulent drainage. Throat without visible erythema, exudates, masses, or lesions. NECK: Trachea midline. Supple, nontender. No palpable thyroid enlargement or nodularity. CARDIOVASCULAR: Regular rate and rhythm with 2/6 MARTÍN. No JVD. Peripheral pulses symmetric. RESPIRATORY/CHEST: Symmetric, unlabored respirations. Faint rhonchi on the right. No wheezes, rales, or rhonchi. GASTROINTESTINAL: Abdomen soft, non-tender, nondistended. No hepato-splenomegaly , or palpable masses. No guarding. Bowel sounds present. GENITOURINARY: Without palpable bladder distension. Rosas catheter in place. MUSCULOSKELETAL: Extremities without clubbing, cyanosis, or edema. No joint tenderness or effusion noted. No calf tenderness. No mottling or clubbing. LYMPHATICS: No palpable cervical or supraclavicular adenopathy. NEUROLOGICAL: Awake and alert. Motor and sensory grossly within normal limits. Follows commands. Cognitively sharp. Moves all extremities. PSYCHIATRIC: No obvious anxiety/depression. no apparent hallucinations or other psychotic thought process. Diagnostic Tests Laboratory Laboratory Tests Test 07/29/17 12:30 07/30/17 08:00 07/30/17 14:21 07/31/17 06:13 White Blood Count 13.1 TH/MM3 (4.0-11.0) 10.1 TH/MM3 (4.0-11.0) 13.7 TH/MM3 (4.0-11.0) Red Blood Count 3.51 MIL/MM3 (4.50-5.90) 3.23 MIL/MM3 (4.50-5.90) 3.14 MIL/MM3 (4.50-5.90) Hemoglobin 10.4 GM/DL (13.0-17.0) 9.6 GM/DL (13.0-17.0) 9.5 GM/DL (13.0-17.0) Hematocrit 31.5 % (39.0-51.0) 29.1 % (39.0-51.0) 28.3 % (39.0-51.0) Mean Corpuscular Volume 89.7 FL (80.0-100.0) 90.0 FL (80.0-100.0) 90.3 FL (80.0-100.0) Mean Corpuscular Hemoglobin 29.6 PG (27.0-34.0) 29.8 PG (27.0-34.0) 30.4 PG (27.0-34.0) Mean Corpuscular Hemoglobin Concent 33.0 % (32.0-36.0) 33.1 % (32.0-36.0) 33.7 % (32.0-36.0) Red Cell Distribution Width 18.8 % (11.6-17.2) 18.5 % (11.6-17.2) 18.0 % (11.6-17.2) Platelet Count 101 TH/MM3 (150-450) 77 TH/MM3 (150-450) 84 TH/MM3 (150-450) Mean Platelet Volume 8.0 FL (7.0-11.0) 8.2 FL (7.0-11.0) 8.4 FL (7.0-11.0) Neutrophils (%) (Auto) 28.9 % (16.0-70.0) 26.3 % (16.0-70.0) Lymphocytes (%) (Auto) 66.6 % (9.0-44.0) 70.1 % (9.0-44.0) Monocytes (%) (Auto) 2.6 % (0.0-8.0) 2.8 % (0.0-8.0) Eosinophils (%) (Auto) 1.2 % (0.0-4.0) 0.4 % (0.0-4.0) Basophils (%) (Auto) 0.7 % (0.0-2.0) 0.4 % (0.0-2.0) Neutrophils # (Auto) 3.8 TH/MM3 (1.8-7.7) 3.6 TH/MM3 (1.8-7.7) Lymphocytes # (Auto) 8.7 TH/MM3 (1.0-4.8) 9.6 TH/MM3 (1.0-4.8) Monocytes # (Auto) 0.3 TH/MM3 (0-0.9) 0.4 TH/MM3 (0-0.9) Eosinophils # (Auto) 0.2 TH/MM3 (0-0.4) 0.1 TH/MM3 (0-0.4) Basophils # (Auto) 0.1 TH/MM3 (0-0.2) 0.1 TH/MM3 (0-0.2) CBC Comment AUTO DIFF AUTO DIFF AUTO DIFF Differential Total Cells Counted 100 100 100 Neutrophils % (Manual) 31 % (16-70) 24 % (16-70) 21 % (16-70) Band Neutrophils % 1 % (0-6) 1 % (0-6) Lymphocytes % 63 % (9-44) 71 % (9-44) 74 % (9-44) Monocytes % 3 % (0-8) 1 % (0-8) 4 % (0-8) Eosinophils % 2 % (0-4) 2 % (0-4) Neutrophils # (Manual) 4.2 TH/MM3 (1.8-7.7) 2.5 TH/MM3 (1.8-7.7) 3.0 TH/MM3 (1.8-7.7) Differential Comment FINAL DIFF MANUAL FINAL DIFF MANUAL FINAL DIFF MANUAL Platelet Estimate LOW (NORMAL) LOW (NORMAL) LOW (NORMAL) Platelet Morphology Comment NORMAL (NORMAL) NORMAL (NORMAL) NORMAL (NORMAL) Red Cell Morphology Comment NORMAL (NORMAL) Prothrombin Time 12.4 SEC (9.8-11.6) Prothromb Time International Ratio 1.1 RATIO Activated Partial Thromboplast Time 26.5 SEC (24.3-30.1) Blood Urea Nitrogen 23 MG/DL (7-18) 23 MG/DL (7-18) 24 MG/DL (7-18) 24 MG/DL (7-18) Creatinine 1.06 MG/DL (0.60-1.30) 0.91 MG/DL (0.60-1.30) 1.05 MG/DL (0.60-1.30) 0.87 MG/DL (0.60-1.30) Random Glucose 134 MG/DL (74-106) 84 MG/DL (74-106) 154 MG/DL (74-106) 94 MG/DL (74-106) Total Protein 4.7 GM/DL (6.4-8.2) 4.3 GM/DL (6.4-8.2) 4.9 GM/DL (6.4-8.2) 4.3 GM/DL (6.4-8.2) Calcium Level 7.1 MG/DL (8.5-10.1) 7.1 MG/DL (8.5-10.1) 7.4 MG/DL (8.5-10.1) 7.3 MG/DL (8.5-10.1) Sodium Level 140 MEQ/L (136-145) 141 MEQ/L (136-145) 139 MEQ/L (136-145) 139 MEQ/L (136-145) Potassium Level 3.9 MEQ/L (3.5-5.1) 4.0 MEQ/L (3.5-5.1) 3.6 MEQ/L (3.5-5.1) 3.9 MEQ/L (3.5-5.1) Chloride Level 106 MEQ/L (98-107) 104 MEQ/L (98-107) 105 MEQ/L (98-107) 104 MEQ/L (98-107) Carbon Dioxide Level 24.6 MEQ/L (21.0-32.0) 27.7 MEQ/L (21.0-32.0) 26.3 MEQ/L (21.0-32.0) 26.5 MEQ/L (21.0-32.0) Anion Gap 9 MEQ/L (5-15) 9 MEQ/L (5-15) 8 MEQ/L (5-15) 9 MEQ/L (5-15) Estimat Glomerular Filtration Rate 67 ML/MIN (>89) 80 ML/MIN (>89) 68 ML/MIN (>89) 84 ML/MIN (>89) Protein Corrected Calcium 8.4 MG/DL (8.5-10.1) 8.7 MG/DL (8.5-10.1) 8.6 MG/DL (8.5-10.1) 8.9 MG/DL (8.5-10.1) Basophils % 1 % (0-2) Smudge Cells PRESENT PRESENT Ovalocytes 1+ (NORMAL) 1+ (NORMAL) Acanthocytes OCC (NORMAL) OCC (NORMAL) Albumin 1.9 GM/DL (3.4-5.0) 2.1 GM/DL (3.4-5.0) Alkaline Phosphatase 57 U/L (45-117) 68 U/L (45-117) Aspartate Amino Transf (AST/SGOT) 22 U/L (15-37) 23 U/L (15-37) Alanine Aminotransferase (ALT/SGPT) 12 U/L (12-78) 13 U/L (12-78) Total Bilirubin 1.1 MG/DL (0.2-1.0) 1.0 MG/DL (0.2-1.0) C-Reactive Protein 0.81 MG/DL (0.00-0.30) Metamyelocytes 1 % (0-1) Haptoglobin 45 MG/DL (30-200) Fibrinogen 155 mg/dL (227-377) Lactate Dehydrogenase 182 U/L (87-241) Iron Level 64 MCG/DL (65-175) Total Iron Binding Capacity 263 MCG/DL (250-450) Percent Iron Saturation 24.3 % (20-50) Ferritin 45 NG/ML (26-388) Hepatitis B Surface Antigen NEGATIVE (NEGATIVE) Hepatitis B Core IgM Antibody NEGATIVE (NEGATIVE) Hepatitis C Antibody NEGATIVE (NEGATIVE) HIV (1&2) Antibody NEGATIVE (NEGATIVE) Result Diagram: 07/31/17 0613 07/31/1713 Microbiology Microbiology Date/Time Source Procedure Growth Status 07/29/17 19:25 Blood Peripheral Aerobic Blood Culture - Preliminary NO GROWTH IN 2 DAYS Resulted 07/29/17 19:25 Blood Peripheral Anaerobic Blood Culture - Preliminary NO GROWTH IN 2 DAYS Resulted 07/29/17 19:20 Blood Peripheral Aerobic Blood Culture - Preliminary NO GROWTH IN 2 DAYS Resulted 07/29/17 19:20 Blood Peripheral Anaerobic Blood Culture - Preliminary NO GROWTH IN 2 DAYS Resulted Imaging Last Impressions Chest X-Ray 07/31/17 0000 Signed Impressions: Service Date/Time: Monday, July 31, 2017 13:46 - CONCLUSION: There is no significant pleural effusion. Minimal opacity left upper lobe. Afshin Shin MD FACR Patient/Family Conference Present at Family Conference: PatientTaz Harrell towards the end of visit during review of code status. Family Conference Time (mins): 45 Family Conference Location: Bedside Issues Discussed: * Palliative care role, purpose, approach * Additional medical, psychosocial, and spiritual history * Patients general health, functional status, and cognitive changes in the months leading up to the current hospitalization * Patient/family understanding of the current medical problems * Patient/family understanding of prognosis * Patients goals of care as best understood from advance directives and/or conversations and/or values * Current medical treatment options and benefits/burdens of those options * Likely scenarios comparing ongoing aggressive care with a transition to comfort measures only * Questions answered to the best of my ability * Palliative care contact information provided Assessment and Plan Disease Oriented Problem List: (1) Recurrent pleural effusion on right Comment: etiology currently unknown (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 (3) Lymphoproliferative disease (4) Aortic valvar stenosis (5) Granulomatosis with polyangiitis (6) History of colon cancer Symptom Scale: (1) Dyspnea 0-10 Scale: 6 Pertinent Non-Medical Issues Psychosocial: Spiritual: Legal: Ethical issues impacting care: Important Contacts Today he completed Health Care Surrogate as Lucila Bowles ([phone] (cell) & [phone] (she is a retired RN). Alternate Surrogate is Amador Bowles (Lucila's son) who is a physician. In addition he states Boni Harrell (server support technician) [phone] Bhavani Rodriguez [phone] can be notified and be informed of his condition. Prognosis 82 year old with recurrent pleural effusion of unknown etiology, with multiple comorbities including wegners granulomatosis, chf, cad, cirrhosis. He has lymphoproliferative disorder in which workup up is underway. Prognosis is guarded. Code Status: Full Code Plan == Capacity- Pt has capacity to make medical decisions, and also to determine a Health Care surrogate. On my visit pt is alert. He is oriented to person, place and date. He is able to tell me why he came to the hospital "I felt short of breath." He is able to relate he was in [facility] and also had recent hospitalization. He is able to list sister phone number of the top of his head. Able to tell me the oncologist name "Dr. Maria." He has capacity to make medical decisions. He demonstrate basic understanding of his pleural effusion, and has capacity to weigh risk and benefits. == Health Care Surrogate.Today he completed Health Care Surrogate as Lucila Bowles ([phone] (cell) & [phone] (she is a retired RN). Alternate Surrogate is Amador Bowles (Lucila's son) who is a physician. In addition he states Boni Harrell (server support technician) and Bhavani Rodriguez can be notified and be informed of his condition. == Goals of Care Discussed with him current test being run. Oncology also came in and spoke to patient during meeting. Oncology feels if it was CLL and early, it would only be watchful waiting, and nothing aggressive. Pt's career coordinator Boni Harrell was also present during some of the conversation. Discussed goals of care. He feels he want to know the reason for his pleural effusion, and is amenable to continue the tests, and wait for results. Discussing code status, and Boni Harrell was present, he states he does not want intubation, but bipap only. I ask him if he would like the input of joy loader before making that decision, he states no. He does endorse he wants acls drugs/shock/compression. He wants to go home, but still wants to continue workup. He is amenable for me to call Lucila Bowles, I have called and left a message == Code: Alternate code. Please see discussion above. No intubation, but amenable to bipap/ acls drugs/ shock/compression == symptom- dyspnea- defer to medical team. == Palliative will continue to follow. Time Spent Total Floor Time (mins): 60 Face to Face Time (mins): 48 Thank you for the opportunity to participate in the care of Mr. Brewer. Attestation To help prompt me to consider important information that might be impacting today's encounter and assessment, information from prior notes written by myself or my colleagues may have been "brought forward" into today's note. My signature on this note, however, is an attestation that I personally performed the exam, history, and/or decision-making noted today, and, unless otherwise indicated, the interactions with patient, family, and staff as well as the review of records all occurred today. I also attest that the listed assessment and stated plan reflect my best clinical judgment today based on the combination of historical information, prior notes, and today's exam/ interactions. When time spent is documented, it refers only to time spent today by the signer, or if indicated, combined time spent today by collaborating physician/nurse practitioner. Benjie Camara MD Jul 31, 2017 15:35
--- NOTE | 2017-07-31 17:57 | PD.ONC.PN ---
Subjective Subjective Remarks Afebrile Discussing CODE STATUS with Dr. Camara Reports the shortness of breath is slightly improved Objective Data Date Time Temp Pulse Resp B/P (MAP) Pulse Ox O2 Delivery O2 Flow Rate FiO2 07/31/17 14:08 97 07/31/17 12:00 97.3 69 20 117/60 (79) 96 07/31/17 08:00 97.4 54 20 128/59 (82) 95 07/31/17 08:00 Nasal Cannula 2.00 07/31/17 04:00 97.8 53 20 111/56 (74) 97 07/31/17 00:00 Nasal Cannula 2.00 07/31/17 00:00 98.0 65 20 101/51 (68) 94 07/30/17 20:00 Nasal Cannula 2.00 07/30/17 20:00 98.1 73 18 105/62 (76) 95 07/31/17 07/31/17 07/31/17 07:00 15:00 23:00 Intake Total 650 ml Output Total 725 ml Balance -75 ml Result Diagram: 07/31/17 0613 07/31/17 0613 Laboratory Results Laboratory Tests Test 07/31/17 06:13 White Blood Count 13.7 TH/MM3 Red Blood Count 3.14 MIL/MM3 Hemoglobin 9.5 GM/DL Hematocrit 28.3 % Mean Corpuscular Volume 90.3 FL Mean Corpuscular Hemoglobin 30.4 PG Mean Corpuscular Hemoglobin Concent 33.7 % Red Cell Distribution Width 18.0 % Platelet Count 84 TH/MM3 Mean Platelet Volume 8.4 FL Neutrophils (%) (Auto) 26.3 % Lymphocytes (%) (Auto) 70.1 % Monocytes (%) (Auto) 2.8 % Eosinophils (%) (Auto) 0.4 % Basophils (%) (Auto) 0.4 % Neutrophils # (Auto) 3.6 TH/MM3 Lymphocytes # (Auto) 9.6 TH/MM3 Monocytes # (Auto) 0.4 TH/MM3 Eosinophils # (Auto) 0.1 TH/MM3 Basophils # (Auto) 0.1 TH/MM3 CBC Comment AUTO DIFF Differential Total Cells Counted 100 Neutrophils % (Manual) 21 % Lymphocytes % 74 % Monocytes % 4 % Neutrophils # (Manual) 3.0 TH/MM3 Metamyelocytes 1 % Differential Comment FINAL DIFF MANUAL Smudge Cells PRESENT Platelet Estimate LOW Platelet Morphology Comment NORMAL Ovalocytes 1+ Acanthocytes OCC Haptoglobin 45 MG/DL Fibrinogen 155 mg/dL Blood Urea Nitrogen 24 MG/DL Creatinine 0.87 MG/DL Random Glucose 94 MG/DL Total Protein 4.3 GM/DL Calcium Level 7.3 MG/DL Lactate Dehydrogenase 182 U/L Sodium Level 139 MEQ/L Potassium Level 3.9 MEQ/L Chloride Level 104 MEQ/L Carbon Dioxide Level 26.5 MEQ/L Anion Gap 9 MEQ/L Estimat Glomerular Filtration Rate 84 ML/MIN Protein Corrected Calcium 8.9 MG/DL Iron Level 64 MCG/DL Total Iron Binding Capacity 263 MCG/DL Percent Iron Saturation 24.3 % Ferritin 45 NG/ML Hepatitis B Surface Antigen NEGATIVE Hepatitis B Core IgM Antibody NEGATIVE Hepatitis C Antibody NEGATIVE HIV (1&2) Antibody NEGATIVE Culture Results Microbiology Date/Time Source Procedure Growth Status 07/29/17 19:25 Blood Peripheral Aerobic Blood Culture - Preliminary NO GROWTH IN 2 DAYS Resulted 07/29/17 19:25 Blood Peripheral Anaerobic Blood Culture - Preliminary NO GROWTH IN 2 DAYS Resulted 07/29/17 19:20 Blood Peripheral Aerobic Blood Culture - Preliminary NO GROWTH IN 2 DAYS Resulted 07/29/17 19:20 Blood Peripheral Anaerobic Blood Culture - Preliminary NO GROWTH IN 2 DAYS Resulted Imaging Studies Last 24 hours Impressions Chest X-Ray 07/31/17 0000 Signed Impressions: Service Date/Time: Monday, July 31, 2017 13:46 - CONCLUSION: There is no significant pleural effusion. Minimal opacity left upper lobe. Afshin Shin MD FACR Administered Medications Medications (Trade) Dose Ordered Sig/Chantel Route PRN Reason Start Time Stop Time Status Last Admin Dose Admin Sodium Chloride (NS Flush) 2 ml BID IV FLUSH 07/29/17 21:00 07/31/17 09:00 Acetaminophen (Tylenol) 650 mg Q4H PRN PO TEMP>101F, PAIN 1-10, HEADACHE 07/29/17 15:30 07/30/17 22:08 Senna/Docusate Sodium (Dior-Colace) 1 tab BID PO 07/29/17 21:00 07/30/17 09:14 Carvedilol (Coreg) 3.125 mg BID PO 07/29/17 21:00 07/30/17 20:25 Prednisone (Deltasone) 5 mg BID PO 07/29/17 21:00 07/31/17 09:56 Objective Remarks GENERAL: Elderly male resting in bed in no acute distress SKIN: Warm and dry. HEAD: Normocephalic. EYES: No injection or drainage. NECK: Supple, trachea midline. CARDIOVASCULAR: Regular rate and rhythm without murmurs. RESPIRATORY: Scattered rales posteriorly. GASTROINTESTINAL: Abdomen soft, non-tender, nondistended. EXTREMITIES: No cyanosis, or edema. MUSCULOSKELETAL: Generalized weakness NEUROLOGICAL: No obvious focal deficit. Awake, alert, and oriented x3. 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 -- Smudge cells noted on the differential -- He is not having any constitutional B symptoms nor does he have any palpable adenopathy -- Recent CT scan of the chest abdomen pelvis also did not show any lymphadenopathy (2) Anemia ICD Codes: D64.9 - Anemia, unspecified Status: Chronic Plan: -- History of normocytic normochromic anemia since 2012 -- History of Matti's granulomatosis (3) Thrombocytopenia ICD Codes: D69.6 - Thrombocytopenia, unspecified Status: Chronic Plan: -- Normal haptoglobin and LDH -- Fibrinogen slightly low at 155 Assessment 82 y/o male admitted with SOB; hematology consulted for a possible lymphoproliferative disorder Plan 1. Await flow cytometry results from peripheral blood, immunodeficiency panel 2. May repeat imaging of chest/abd/pelvis if flow cytometry abnormal 3. No evidence of kidney disease 4. No evidence of iron deficiency. Attending Statement The exam, history, and the medical decision-making described in the above note were completed with the assistance of the mid-level provider. I reviewed and agree with the findings presented. I attest that I had a [id number] encounter with the patient on the same day, and personally performed and documented my assessment and findings in the medical record. Leukocytosis with Lymphocytosis--flow cytometry pending Thrombocytopenia with low fibrinogen due to liver disease vs DIC -- check fibrinogen in am. give cryoprecipitate if fibrinogen less than 150 Anemia: normochromic/normocytic due to CLL vs Liver cirrhosis/splenomegaly--no iron deficieny/no hemolysis/no b12 and folate deficiency. Hepatitis/HIV panel negative--SPEP pending. check quantitative immunoglobulin Recurrent Pleural effusions of unknown etiology. d/w rn o/n events reviewed Iesha Lynch Jul 31, 2017 17:57 Ez Maria MD Jul 31, 2017 22:29
[2017-07-31 21:57] LABS: TOTAL PROTEIN SPE 4.7 GM/DL (6.0-7.6)
[2017-07-31 22:23] LABS: ALBUMIN SPE 2.64 GM/DL (3.50-5.00); ALPHA 1 GLOBULIN 0.18 GM/DL (0.11-0.29)
[2017-07-31 22:24] LABS: ALPHA 2 GLOBULIN 0.55 GM/DL (0.22-1.00); BETA GLOBULINS (SPE) 0.38 GM/DL (0.53-1.03)
[2017-07-31] MEDS: ACETAMINOPHEN 325 MG TAB PO PRN (22:36)
[2017-08-01] VITALS (10 sets, daily range): BP systolic 102–137; BP diastolic 55–88; PULSE 56–72; RESP 16–20; TEMP 97.7–98.4; O2SAT 93–99
[2017-08-01] MEDS: HEPARIN SODIUM - SQ 10,000 UNITS/ML VIAL SQ SCH ×3 (06:00→21:11)
[2017-08-01 08:03] LABS: AUTOMATED NEUTROPHIL # 3.5 TH/MM3 (1.8-7.7); BASOPHIL # 0.1 TH/MM3 (0-0.2); BASOPHIL % 0.3 % (0.0-2.0); EOSINOPHIL # 0.1 TH/MM3 (0-0.4); EOSINOPHIL % 0.3 % (0.0-4.0); HEMATOCRIT 27.3 % (39.0-51.0); LYMPH % 76.6 % (9.0-44.0); LYMPHOCYTE # 12.9 TH/MM3 (1.0-4.8); MEAN CELL VOLUME 90.7 FL (80.0-100.0); MEAN CORPUSCULAR HEMOGLOBIN 29.7 PG (27.0-34.0); MEAN CORPUSCULAR HGB CONC 32.7 % (32.0-36.0); MONO % 2.3 % (0.0-8.0); NEUT % 20.5 % (16.0-70.0); PLATELET COUNT 88 TH/MM3 (150-450); RED BLOOD COUNT 3.01 MIL/MM3 (4.50-5.90); RED CELL DISTRIBUTION WIDTH 18.2 % (11.6-17.2); WHITE BLOOD COUNT 16.9 TH/MM3 (4.0-11.0)
[2017-08-01 08:14] LABS: HEMO FLAGS AUTO DIFF
[2017-08-01 08:29] LABS: BICARBONATE 28.6 MEQ/L (21.0-32.0); POTASSIUM 3.8 MEQ/L (3.5-5.1)
[2017-08-01 08:40] LABS: CALCIUM-PROTEIN CORRECTED 8.7 MG/DL (8.5-10.1)
[2017-08-01 08:53] LABS: EOSINOPHILS 3 % (0-4); METAMYELOCYTES 1 % (0-1); NEUTROPHIL # MANUAL DIFF 5.2 TH/MM3 (1.8-7.7); POLYS (SEG NEUTROPHILS) 30 % (16-70); WBC DIFF SAMPLE 100
[2017-08-01 08:54] LABS: OVALOCYTES 1+ (NORMAL); PLATELET ESTIMATE SMEAR LOW (NORMAL); PLATELET MORPHOLOGY NORMAL (NORMAL); TEARDROP RBCS 1+ (NORMAL)
[2017-08-01 08:55] LABS: SCAN/DIFF FINAL DIFF MANUAL; SMUDGE CELLS PRESENT PRESENT
[2017-08-01] MEDS: DOCUSATE SODIUM 50 MG/SENNA 8.6 MG TAB PO SCH ×2 (09:00→21:00)
[2017-08-01 09:06] LABS: IMMUNOGLOBULIN A 178 MG/DL (107-591); IMMUNOGLOBULIN G 849 MG/DL (690-1690); IMMUNOGLOBULIN M 10 MG/DL (37-225)
[2017-08-01] MEDS: predniSONE 5 MG TAB PO SCH ×2 (09:35→21:07)
[2017-08-01] MEDS: CARVEDILOL 3.125 MG TAB PO SCH ×2 (09:35→21:07)
[2017-08-01] MEDS: FUROSEMIDE 40 MG TAB PO SCH (09:36)
[2017-08-01] MEDS: SODIUM CHLORIDE 0.9% FLUSH 10 ML FLUSH IV FLUSH SCH ×2 (09:37→21:07)
--- NOTE | 2017-08-01 10:09 | HHI.FPPN ---
Subjective Remarks Patient seen and examined this morning. No acute events overnight. Patient states he got a good night's rest last night. States his shortness of breath has somewhat improved. He states he had a few loose stools yesterday, but happens when he doesn't eat his regular breakfast, which includes rice. Denies any chest pain, leg pain, edema. He is curious about the options going forward, and states he had a discussion with palliative care yesterday. (Soren Jiménez MD, R2) Objective Vitals Vital Signs Date Time Temp Pulse Resp B/P (MAP) Pulse Ox O2 Delivery O2 Flow Rate FiO2 08/01/17 04:00 98.0 60 20 116/57 (76) 96 08/01/17 04:00 Nasal Cannula 2.00 08/01/17 00:00 98.2 70 20 110/59 (76) 93 08/01/17 00:00 Nasal Cannula 2.00 07/31/17 20:00 98.5 68 20 125/61 (82) 95 07/31/17 20:00 Room Air 07/31/17 19:09 98 07/31/17 16:00 98.1 72 20 121/56 (77) 96 07/31/17 14:08 97 07/31/17 12:00 97.3 69 20 117/60 (79) 96 I/O 07/31/17 07/31/17 07/31/17 08/01/17 08/01/17 08/01/17 07:00 15:00 23:00 07:00 15:00 23:00 Intake Total 650 ml 480 ml 480 ml Output Total 725 ml 650 ml 500 ml Balance -75 ml -170 ml -20 ml Intake Oral 650 ml 480 ml 480 ml Output Urine Total 725 ml 650 ml 500 ml # Voids 2 # Bowel Movements 5 (Soren Jiménez MD, R2) Result Diagram: 08/01/1772808/01/17728 Objective Remarks GENERAL: NAD, Lying in bed SKIN: Scattered ecchymoses on lower legs. Cool and dry. Pulses intact. CARDIOVASCULAR: Regular rate and rhythm without gallops, or rubs. Systolic murmur. RESPIRATORY: Coarse breath sounds. Decreased breath sounds, especially in lower lobes. No increased work of breathing. GASTROINTESTINAL: Abdomen soft, non-tender, nondistended. BS+ MUSCULOSKELETAL: No edema. No calf tenderness. NEUROLOGICAL: Awake and alert. Normal speech. (Soren Jiménez MD, R2) A/P Assessment and Plan 82-year-old male with history of granulomatosis with polyangiitis, colon cancer presents with recurrent pleural effusions. We'll admit for management and pulmonary consult. Discharge Planning Pt can be discharged once cleared by pulmonology, hematology and cause of recurrent pleural effusion identified (Soren Jiménez MD, R2) Attending Attestation Patient seen and examined. Case reviewed and discussed Agree with plan of care as discussed with me and documented in the resident note. (Angelika Stakc MD) Problem List: (1) Recurrent pleural effusion on right ICD Codes: J90 - Pleural effusion, not elsewhere classified Status: Acute Plan: Patient has had recurrent pleural effusions and subsequent thoracentesis. 6 in the last year. 3 in the last couple months. Previous thoracenteses showed evidence of transudate, without infection or malignancy. CXR (07/29): Consolidative changes and small effusion on the right stable in the interval CXR (07/31): No significant pleural effusion. Minimal opacity left upper lobe -Consult pulmonology, pt known to Dr. 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 Peripheral smear shows smudge cells. History of thrombocytopenia and chronic normocytic anemia as well. History of splenomegaly. Fibrinogen 155. LDH 182. Iron borderline low at 64, ferritin 45. Haptoglobin 45 -Hematology consulted-appreciate recs -Anemia workup: normocytic due to CLL vs cirrhosis. -Thrombocytopenia workup -Trend fibrinogen -Give cryoprecipitate if fibrinogen <150 -Flow cytometry pending to work up CLL -Hepatitis profile negative. HIV negative (3) Aortic valvar stenosis ICD Codes: I35.0 - Nonrheumatic aortic (valve) stenosis Status: Chronic Plan: Systolic murmur on exam. 2D Echo (07/30): Mild to moderate aortic stenosis; EF 60-65%. 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 -Patient on chronic steroids. Continue as above. -Continue to monitor. (5) History of colon cancer ICD Codes: Z85.038 - Personal history of other malignant neoplasm of large intestine Status: Chronic Plan: History of colon cancer. S/p partial colectomy and chemotherapy. Bony lesion noted on xray -Continue to follow. F/u outpatient (6) FEN Status: Acute Plan: Fluids: Tolerating PO Electrolytes: monitor, replace PRN Nutrition: Regular diet DVT ppx: heparin/SCDs (Soren Jiménez MD, R2) Problem Qualifiers (1) Aortic valvar stenosis: Qualified Codes: I35.0 - Nonrheumatic aortic (valve) stenosis Soren Jiménez MD, R2 Aug 01, 2017 10:08 Angelika Stack MD Aug 02, 2017 11:13
[2017-08-01] MEDS ORDERED: SODIUM CHLOR 0.9% 250 ML INJ 250 ML IV ONE (15:30)
--- NOTE | 2017-08-01 16:27 | PD.ONC.PN ---
Subjective Subjective Remarks Afebrile Pt sitting up on side of bed in room. Per RN, the pt has been told by his head of science that he is cleared for discharge and he is now adamant that he is leaving. Objective Data Date Time Temp Pulse Resp B/P (MAP) Pulse Ox O2 Delivery O2 Flow Rate FiO2 08/01/17 12:00 97.7 58 16 102/55 (71) 98 08/01/17 08:00 98.0 56 16 116/88 (97) 99 08/01/17 07:15 Nasal Cannula 2.00 08/01/17 04:00 98.0 60 20 116/57 (76) 96 08/01/17 04:00 Nasal Cannula 2.00 08/01/17 00:00 98.2 70 20 110/59 (76) 93 08/01/17 00:00 Nasal Cannula 2.00 07/31/17 20:00 98.5 68 20 125/61 (82) 95 07/31/17 20:00 Room Air 07/31/17 19:09 98 08/01/17 08/01/17 08/01/17 07:00 15:00 23:00 Intake Total 480 ml Output Total 500 ml Balance -20 ml Result Diagram: 08/01/17 0729 08/01/17 0729 Laboratory Results Laboratory Tests Test 08/01/17 07:29 White Blood Count 16.9 TH/MM3 Red Blood Count 3.01 MIL/MM3 Hemoglobin 8.9 GM/DL Hematocrit 27.3 % Mean Corpuscular Volume 90.7 FL Mean Corpuscular Hemoglobin 29.7 PG Mean Corpuscular Hemoglobin Concent 32.7 % Red Cell Distribution Width 18.2 % Platelet Count 88 TH/MM3 Mean Platelet Volume 8.3 FL Neutrophils (%) (Auto) 20.5 % Lymphocytes (%) (Auto) 76.6 % Monocytes (%) (Auto) 2.3 % Eosinophils (%) (Auto) 0.3 % Basophils (%) (Auto) 0.3 % Neutrophils # (Auto) 3.5 TH/MM3 Lymphocytes # (Auto) 12.9 TH/MM3 Monocytes # (Auto) 0.4 TH/MM3 Eosinophils # (Auto) 0.1 TH/MM3 Basophils # (Auto) 0.1 TH/MM3 CBC Comment AUTO DIFF Differential Total Cells Counted 100 Neutrophils % (Manual) 30 % Lymphocytes % 64 % Monocytes % 2 % Eosinophils % 3 % Neutrophils # (Manual) 5.2 TH/MM3 Metamyelocytes 1 % Differential Comment FINAL DIFF MANUAL Smudge Cells PRESENT Platelet Estimate LOW Platelet Morphology Comment NORMAL Tear Drop Cells 1+ Ovalocytes 1+ Fibrinogen 142 mg/dL Blood Urea Nitrogen 23 MG/DL Creatinine 0.82 MG/DL Random Glucose 110 MG/DL Total Protein 4.2 GM/DL Calcium Level 7.1 MG/DL Sodium Level 142 MEQ/L Potassium Level 3.8 MEQ/L Chloride Level 107 MEQ/L Carbon Dioxide Level 28.6 MEQ/L Anion Gap 6 MEQ/L Estimat Glomerular Filtration Rate 90 ML/MIN Protein Corrected Calcium 8.7 MG/DL Immunoglobulin G Total 849 MG/DL Immunoglobulin A 178 MG/DL Immunoglobulin M 10 MG/DL Culture Results Microbiology Date/Time Source Procedure Growth Status 07/29/17 19:25 Blood Peripheral Aerobic Blood Culture - Preliminary NO GROWTH IN 3 DAYS Resulted 07/29/17 19:25 Blood Peripheral Anaerobic Blood Culture - Preliminary NO GROWTH IN 3 DAYS Resulted 07/29/17 19:20 Blood Peripheral Aerobic Blood Culture - Preliminary NO GROWTH IN 3 DAYS Resulted 07/29/17 19:20 Blood Peripheral Anaerobic Blood Culture - Preliminary NO GROWTH IN 3 DAYS Resulted Administered Medications Medications (Trade) Dose Ordered Sig/Chantel Route PRN Reason Start Time Stop Time Status Last Admin Dose Admin Sodium Chloride (NS Flush) 2 ml BID IV FLUSH 07/29/17 21:00 08/01/17 09:37 Acetaminophen (Tylenol) 650 mg Q4H PRN PO TEMP>101F, PAIN 1-10, HEADACHE 07/29/17 15:30 07/31/17 22:36 Senna/Docusate Sodium (Dior-Colace) 1 tab BID PO 07/29/17 21:00 07/30/17 09:14 Carvedilol (Coreg) 3.125 mg BID PO 07/29/17 21:00 08/01/17 09:35 Prednisone (Deltasone) 5 mg BID PO 07/29/17 21:00 08/01/17 09:35 Furosemide (Lasix) 40 mg DAILY PO 08/01/17 09:00 08/01/17 09:36 Objective Remarks GENERAL: Elderly male sitting up on side of bed in no acute distress SKIN: Warm and dry. HEAD: Normocephalic. EYES: No injection or drainage. NECK: Supple, trachea midline. CARDIOVASCULAR: Regular rate and rhythm without murmurs. RESPIRATORY: Clear posteriorly. Breathing unlabored. GASTROINTESTINAL: Abdomen soft, non-tender, nondistended. EXTREMITIES: No cyanosis, or edema. MUSCULOSKELETAL: Generalized weakness NEUROLOGICAL: No obvious focal deficit. Awake, alert, and oriented x3. 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 -- Smudge cells noted on the differential -- He is not having any constitutional B symptoms nor does he have any palpable adenopathy -- Recent CT scan of the chest abdomen pelvis also did not show any lymphadenopathy (2) Anemia ICD Codes: D64.9 - Anemia, unspecified Status: Chronic Plan: -- History of normocytic normochromic anemia since 2012 -- History of Matti's granulomatosis (3) Thrombocytopenia ICD Codes: D69.6 - Thrombocytopenia, unspecified Status: Chronic Plan: -- Normal haptoglobin and LDH -- Fibrinogen low at 142 -- Possibility of DIC Assessment 82 y/o male admitted with SOB; hematology consulted for a possible lymphoproliferative disorder Plan 1. Peripheral blood flow cytometry pending 2. Fibrinogen low due to liver disease versus DIC 3. Discussed with patient possibility of DIC and reasoning for ordering cryoprecipitate 3. SPEP pending Attending Statement The exam, history, and the medical decision-making described in the above note were completed with the assistance of the mid-level provider. I reviewed and agree with the findings presented. I attest that I had a [id number] encounter with the patient on the same day, and personally performed and documented my assessment and findings in the medical record. Flow cytometry to confirm CLL pending Has lymphocytosis, anemia, thrombocytopenia and Splenomegaly Quant Immunoglobulin--normal IGG and IGA. IGM low SPEP w/o any M-spike Low fibrinogen ? DIC vs underlying liver disea Transfuse cryo for fibrinogen less than 150 obtain abdominal U/S to evaluate liver/spleen and any adenopathy d.w rn o/n events reviewed Iesha Lynch Aug 01, 2017 16:27 Ez Maria MD Aug 01, 2017 23:44
[2017-08-01] MEDS: ACETAMINOPHEN 325 MG TAB PO PRN (21:32)
--- NOTE | 2017-08-01 23:16 | MB ---
cc: Alo SHAIKH M.D. DATE OF CONSULTATION 08/01/17 HISTORY OF PRESENT ILLNESS Mr. Brewer is an 82-year-old white male whom I have followed intermittently since last September with recurrent right pleural effusion. It has been consistently transudative, multiple fluids have been analyze for culture and cytology and they have been negative but the fluid kept recurring. The patient has a history of diastolic heart failure, aortic stenosis, Matti's granulomatosis which has actually been limited to neuro ophthalmic problems followed at the [facility], on a low dose of prednisone and also cirrhosis of the liver diagnosed last year by GI associated with splenomegaly and varices. More recently, he has been found to have a lymphoproliferative disorder that is being evaluated during this admission. He was drained last week but presented back to the emergency room literally within days with recurrence of fluid and we had presumed that he was taking his diuretics at home which had been prescribed last year. On presentation this admission he was very comfortable with normal saturations so we did not drain the fluid again, we simply reinstituted his diuretic and within several days followup chest x-ray on July 31 revealed no significant effusion in either the left or the right pleural space. Obviously, the diuretics were effective. As it turns out the patient has not been taking them consistently so we spoke to he and his slubber runner today about the importance of continuing that going forward. He also has multiple problems medically, comorbidities one of which is new, the lymphoproliferative disorder. All of those need continued follow up care but at this point we seemed to at least control the problem with recurring effusions. He is stable from a pulmonary standpoint. We have not identified any specific intrinsic pulmonary disease, although, his followup chest x-ray does raise the question of a minimal opacity in the left upper lobe that could certainly be followed up as an outpatient. During this admission we also consulted cardiothoracic surgery thinking he may end up needing a VATS procedure for further diagnosis and sclerosis but obviously that is not necessary now. Further diagnostic and/or therapeutic intervention will depend on his ongoing clinical course. MD DELISA Caceres/DM /5:47 PM /11:04 PM
[2017-08-02 03:13] VITALS: BP 92/50
[2017-08-02 04:00] VITALS: BP 118/60; PULSE 67; RESP 20; TEMP 98; O2SAT 96
[2017-08-02] MEDS: HEPARIN SODIUM - SQ 10,000 UNITS/ML VIAL SQ SCH ×2 (05:11→14:00)
[2017-08-02 08:00] VITALS: BP 128/59; PULSE 61; RESP 20; TEMP 98.1; O2SAT 94
--- NOTE | 2017-08-02 08:44 | MB ---
cc: THEO TAYLOR MD DATE OF CONSULTATION 08/01/17 DATE OF 1935 HISTORY OF PRESENT ILLNESS An 82-year-old male with longstanding medical history to include chronic anemia, thrombocytopenia, splenomegaly, he has had current pleural effusions, therefore for our consultation. He has had multiple right thoracentesis, approximately seven times. The last time was on 07/26 where they removed about 1300 cc of yellowish cloudy fluid, therapeutic only. Prior to that he has had multiple other thoracentesis, the first one was back in 2015, back in the [place] area, found to be transudative again. Then he had recurrent in October the fluid sample was transudative, negative cultures and cytology. He was recently traveled to [facility], rehospitalized for shortness of breath, recurrent pleural effusion was drained again. The drainage again showed no evidence of infection or malignancy. We were consulted to evaluate for right video-assisted thoracoscopy and possible pleurodesis. The patient's last x-ray, however, showed no significant pleural effusion. There was a large hiatal hernia, minimal opacity left upper lobe. He is now being worked up for lymphocytic proliferative disorder. 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 PAST SURGICAL HISTORY Surgeries include multiple thoracentesis, inguinal hernia repair, colon surgery. ALLERGIES No known allergies. MEDICATIONS Home meds include: 1. Coreg 3.125 b.i.d. 2. Lasix 40 b.i.d. 3. Prednisone 5 b.i.d. 4. Tylenol. 5. Zofran. FAMILY HISTORY Breast cancer, thyroid cancer. SOCIAL HISTORY Single, never , has a caregiver. Retired [employer]. 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 Smoked cigarettes remotely in his 20s. No alcohol. No illicit drugs. REVIEW OF SYSTEMS Comprehensive 14 system completed which is negative except for which is in the HPI. PHYSICAL EXAMINATION GENERAL: On exam, very thin, frail appearing male. VITAL SIGNS: Blood pressure 102/60, heart rate 58, afebrile. HEENT: Patient is awake, alert, no acute distress. Head is normocephalic, atraumatic. Pupils equal and reactive. Oral mucosa pink, moist. NECK: Supple. No JVD. HEART: Sounds S1-S2, grade 2/6 systolic murmur. LUNGS: Diminished in the right lower base, otherwise clear to auscultation. ABDOMEN: Soft, nontender. No masses or organomegaly. EXTREMITIES: No cyanosis, clubbing or edema. SKIN: He has got multiple areas of some ecchymotic areas, very frail thin skin and dry. LABORATORY FINDINGS Shows hemoglobin 8.9, hematocrit is 27, white cell count 17, platelet count of 88, sodium 142, potassium 3.8, BUN 23, creatinine 0.82, INR 1.1. Blood cultures negative. Peripheral smear substantial population predominately small lymphocytes, suspicious for chronic lymphoproliferative disorders such as chronic lymphocytic leukemia. IMAGING STUDIES Chest x-ray as above. CARDIOLOGY STUDIES The patient also had an echocardiogram which showed aortic valve area 1.1, mild to moderate aortic valve stenosis, mild to moderate tricuspid valve regurgitation. PA pressures of 39 mmHg. EF of 60-65%. IMPRESSION This is an 82-year-old male with multiple medical histories including thrombocytopenia, splenomegaly, recurrent pleural effusions, however his last chest x-ray shows very minimal fluid recollection. If this should recur then the patient can be evaluated at that time for possible video-assisted thoracoscopy with pleurodesis. However, at this time there is not enough fluid for any removal and/or surgery. Please reconsult accordingly. Dictated by: JAMES [place] Theo HOOD /3:31 PM /1:05 PM
[2017-08-02] MEDS: predniSONE 5 MG TAB PO SCH (09:05)
[2017-08-02] MEDS: CARVEDILOL 3.125 MG TAB PO SCH (09:05)
[2017-08-02] MEDS: DOCUSATE SODIUM 50 MG/SENNA 8.6 MG TAB PO SCH (09:05)
[2017-08-02] MEDS: FUROSEMIDE 40 MG TAB PO SCH (09:05)
[2017-08-02] MEDS: SODIUM CHLORIDE 0.9% FLUSH 10 ML FLUSH IV FLUSH SCH (09:05)
--- NOTE | 2017-08-02 09:32 | PD.ONC.PN ---
Subjective Subjective Remarks Afebrile overnight. Patient resting in bed in [facility]. Eager to go home. No complaints. Denies bleeding. Objective Data Date Time Temp Pulse Resp B/P (MAP) Pulse Ox O2 Delivery O2 Flow Rate FiO2 08/02/17 04:00 98.0 67 20 118/60 (79) 96 08/02/17 03:13 92/50 (64) 08/01/17 22:09 96 21 08/01/17 20:10 Room Air 08/01/17 20:00 97.9 72 20 126/62 (83) 96 08/01/17 18:19 95 08/01/17 18:13 98.4 70 20 113/59 94 08/01/17 17:52 98.1 64 20 114/58 95 08/01/17 16:00 97.8 68 16 137/60 (85) 96 08/01/17 12:00 97.7 58 16 102/55 (71) 98 08/02/17 08/02/17 08/02/17 07:00 15:00 23:00 Output Total 275 ml Balance -275 ml Result Diagram: 08/01/1772808/01/17 07 Administered Medications Medications (Trade) Dose Ordered Sig/Chantel Route PRN Reason Start Time Stop Time Status Last Admin Dose Admin Sodium Chloride (NS Flush) 2 ml BID IV FLUSH 07/29/17 21:00 08/02/17 09:05 Acetaminophen (Tylenol) 650 mg Q4H PRN PO TEMP>101F, PAIN 1-10, HEADACHE 07/29/17 15:30 08/01/17 21:32 Senna/Docusate Sodium (Dior-Colace) 1 tab BID PO 07/29/17 21:00 08/02/17 09:05 Carvedilol (Coreg) 3.125 mg BID PO 07/29/17 21:00 08/02/17 09:05 Prednisone (Deltasone) 5 mg BID PO 07/29/17 21:00 08/02/17 09:05 Heparin Sodium (Porcine) (Heparin Inj) 5,000 units Q8HR SQ 07/30/17 22:00 08/02/17 05:11 Furosemide (Lasix) 40 mg DAILY PO 08/01/17 09:00 08/02/17 09:05 Objective Remarks GENERAL: Elderly male upright in bed in nad. SKIN: Warm and dry. HEAD: Normocephalic. EYES: No injection or drainage. NECK: Supple, trachea midline. CARDIOVASCULAR: Regular rate and rhythm RESPIRATORY: Breath sounds equal bilaterally. No accessory muscle use. GASTROINTESTINAL: Abdomen soft, non-tender, nondistended. EXTREMITIES: No cyanosis NEUROLOGICAL: No obvious focal deficit. Awake, alert, and oriented x3. 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 -- Smudge cells noted on the differential -- He is not having any constitutional B symptoms nor does he have any palpable adenopathy -- Recent CT scan of the chest abdomen pelvis also did not show any lymphadenopathy --has lymphocytosis and his peripheral smear was reviewed which showed features concerning for a lymphoproliferative disorder. --lymphocyte percentage is increased to 71%. --findings are concerning for a lymphoproliferative disorder such as chronic lymphocytic leukemia. (2) Thrombocytopenia ICD Codes: D69.6 - Thrombocytopenia, unspecified Status: Chronic Plan: -- Normal haptoglobin and LDH -- Fibrinogen low at 142-->likely d/t to poor synthetic liver function or possible DIC. --thrombocytopenia dates back to 2009. platelet count in 2010 was 87,000. --found to have splenomegaly in 2010. He has portal hypertension. (3) Pleural effusion ICD Codes: J90 - Pleural effusion, not elsewhere classified Status: Resolved Plan: --history of recurrent pleural effusions dating back to mid-2015 and since then he has had several pleurocenteses. --Thus far the cytology does not indicate any malignancy but there is a mention of small lymphocytes. These effusions have been transudative. --CT scan of the chest which showed a very minimal right effusion but a larger left effusion was seen and large spleen was also noted. 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 (4) Normocytic normochromic anemia ICD Codes: D64.9 - Anemia, unspecified Plan: -- History of normocytic normochromic anemia since 2012 -- previously attributed to anemia of chronic inflammation with a background of Matti's granulomatosis. --anemia studies showing normal ferritin, TIBC, % saturation, slightly low serum iron. --B12/folate WNL --LDH/haptoglobin WNL Assessment 82 y/o male admitted with acute dyspnea and recurrent pleural effusion; hematology consulted for a possible lymphoproliferative disorder history of Matti's granulomatosis, anemia, thrombocytopenia, splenomegaly and pleural effusions. History of colon cancer treated with surgery and chemotherapy. Distant history of asbestos exposure. Hypertension. Plan 1. await Peripheral blood flow cytometry 2. check CBC today 3. oncology clear for discharge. Attending Statement The exam, history, and the medical decision-making described in the above note were completed with the assistance of the mid-level provider. I reviewed and agree with the findings presented. I attest that I had a [id number] encounter with the patient on the same day, and personally performed and documented my assessment and findings in the medical record. F/U outpatient in 2-3 weeks Isabella Zepeda Aug 02, 2017 09:32 Ez Maria MD Aug 02, 2017 22:40
--- NOTE | 2017-08-02 10:23 | RADRPT ---
EXAM DATE/TIME: 08/02/2017 08:36 [facility] COMPARISON: CT ABDOMEN & PELVIS W CONTRAST, October 07, 2016, 23:31. INDICATIONS : Abdominal fullness. MEDICAL HISTORY : Carcinoma, colon. Wedginers disease. Shingles. Carcinoma, skin. Heart attack. Non-alcoholic cirrhosis . SURGICAL HISTORY : Cardiac catheterization. Colectomy. Thoracentesis. ENCOUNTER: Initial ACUITY: 1 day PAIN SCORE: 2/10 LOCATION: Bilateral upper quadrant MEASUREMENTS: LIVER: 13.4 cm length COMMON DUCT: 5 mm RIGHT KIDNEY: 8.8 x 5.1 x 5.1 cm LEFT KIDNEY: 11.1 x 4.6 x 5.2 cm SPLEEN: 15.4 cm length AORTA: 2.1cm maximal FINDINGS: LIVER: The liver is heterogeneous with a mildly lobulated contour. No mass or ductal dilatation. Hepatopedal flow within the portal vein. COMMON DUCT: No intraluminal mass or stone visualized. GALLBLADDER: Contains no stones, demonstrates no wall thickening or pericholecystic fluid. PANCREAS: The visualized portions are within normal limits. RIGHT KIDNEY: No hydronephrosis, stone or mass. LEFT KIDNEY: No hydronephrosis, stone or mass. SPLEEN: Spleen is enlarged. No discrete mass. AORTA: Non aneurysmal. IVC: Within normal limits. Small volume ascites. Partial visualization of bilateral pleural effusions. CONCLUSION: 1. Sonographic findings consistent with underlying cirrhosis. 2. Splenomegaly. 3. Partial visualization of bilateral pleural effusions. 4. Small volume ascites. Eagle Boucher Jr., MD on August 02, 2017 at 10:17 Board Certified Radiologist. This report was verified electronically.
[2017-08-02 12:00] VITALS: BP 116/57; PULSE 65; RESP 20; TEMP 97.6; O2SAT 92
--- NOTE | 2017-08-02 13:34 | HHI.FPPN ---
Subjective Remarks Patient states that he is doing well this morning. However, he is eager to leave. He was placed on cryoprecipitate last night and does not sense any improvement. He also had an abdominal ultrasound done this morning. No fevers or chills, no chest pain, no shortness breath, no abdominal pain, no nausea or vomiting, no constipation or diarrhea. (Rosy Benavides MD R1) Objective Vitals Vital Signs Date Time Temp Pulse Resp B/P (MAP) Pulse Ox O2 Delivery O2 Flow Rate FiO2 08/02/17 08:40 Room Air 08/02/17 08:00 98.1 61 20 128/59 (82) 94 08/02/17 04:00 98.0 67 20 118/60 (79) 96 08/02/17 03:13 92/50 (64) 08/01/17 22:09 96 21 08/01/17 20:10 Room Air 08/01/17 20:00 97.9 72 20 126/62 (83) 96 08/01/17 18:19 95 08/01/17 18:13 98.4 70 20 113/59 94 08/01/17 17:52 98.1 64 20 114/58 95 08/01/17 16:00 97.8 68 16 137/60 (85) 96 I/O 08/01/17 08/01/17 08/01/17 08/02/17 08/02/17 08/02/17 07:00 15:00 23:00 07:00 15:00 23:00 Intake Total 480 ml 1036 ml Output Total 500 ml 450 ml 275 ml Balance -20 ml 586 ml -275 ml Intake Oral 480 ml 600 ml IV Total 200 ml Cryoprecipitate 224 ml Blood Product IV Normal Saline Flush 12 ml Output Urine Total 500 ml 450 ml 275 ml # Voids 2 2 # Bowel Movements 0 (Rosy Benavides MD R1) Result Diagram: 08/01/1772808/01/17728 Objective Remarks GENERAL: NAD, Lying in bed SKIN: Scattered ecchymoses on lower legs. Cool and dry. Pulses intact. CARDIOVASCULAR: Regular rate and rhythm without gallops, or rubs. Systolic murmur. RESPIRATORY: Coarse breath sounds. Decreased breath sounds, especially in lower lobes. No increased work of breathing. GASTROINTESTINAL: Abdomen soft, non-tender, nondistended. BS+ MUSCULOSKELETAL: No edema. No calf tenderness. NEUROLOGICAL: Awake and alert. Normal speech. (Rosy Benavides MD R1) A/P Assessment and Plan 82-year-old male with history of granulomatosis with polyangiitis, colon cancer presents with recurrent pleural effusions. We'll admit for management and pulmonary consult. Discharge Planning Pt can be discharged today since has been cleared by pulmonology and hematology. (Rosy Benavides MD R1) Attending Attestation Patient seen and examined. Case reviewed and discussed Agree with plan of care as discussed with me and documented in the resident note. (Angelika Stack MD) Problem List: (1) Recurrent pleural effusion on right ICD Codes: J90 - Pleural effusion, not elsewhere classified Status: Acute Plan: Patient has had recurrent pleural effusions and subsequent thoracentesis. 6 in the last year. 3 in the last couple months. Previous thoracenteses showed evidence of transudate, without infection or malignancy. CXR (07/29): Consolidative changes and small effusion on the right stable in the interval CXR (07/31): No significant pleural effusion. Minimal opacity left upper lobe -Consult pulmonology, pt known to Dr. Jones, appreciate recs * Hold off on a repeat thoracentesis at present; will need if not proceeding with other intervention, such as pleurodesis * Repeat CXR, shows resolution of effusion * CTS consulted * Further diagnostic and or therapeutic intervention will depend on the results of diagnostic studies and clinical course -CT surgery consult, appreciate recs * If pleural effusion should recur then the patient can be evaluated at that time for possible video-assisted thoracoscopy with pleurodesis -Lasix 40mg daily -Home O2 walk test-no need for oxygen -O2 via NC as needed -Blood cultures- NGTD -Continue prednisone 5mg BID (2) 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 Peripheral smear shows smudge cells. History of thrombocytopenia and chronic normocytic anemia as well. History of splenomegaly. Fibrinogen 155. LDH 182. Iron borderline low at 64, ferritin 45. Haptoglobin 45 Abdominal US- liver cirrhosis, splenomegaly, and small ascites -Hematology consulted-appreciate recs -Anemia workup: normocytic due to CLL vs cirrhosis. -Thrombocytopenia workup -Trend fibrinogen -Give cryoprecipitate if fibrinogen <150 -Flow cytometry pending to work up CLL -Hepatitis profile negative. HIV negative (3) Aortic valvar stenosis ICD Codes: I35.0 - Nonrheumatic aortic (valve) stenosis Status: Chronic Plan: Systolic murmur on exam. 2D Echo (07/30): Mild to moderate aortic stenosis; EF 60-65%. 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 -Patient on chronic steroids. Continue as above. -Continue to monitor. (5) History of colon cancer ICD Codes: Z85.038 - Personal history of other malignant neoplasm of large intestine Status: Chronic Plan: History of colon cancer. S/p partial colectomy and chemotherapy. Bony lesion noted on xray -Continue to follow. F/u outpatient (6) FEN Status: Acute Plan: Fluids: Tolerating PO Electrolytes: monitor, replace PRN Nutrition: Regular diet DVT ppx: heparin/SCDs (Rosy Benavides MD R1) Problem Qualifiers (1) Aortic valvar stenosis: Qualified Codes: I35.0 - Nonrheumatic aortic (valve) stenosis Rosy Benavides MD R1 Aug 02, 2017 13:34 Angelika Stack MD Aug 05, 2017 16:33
[2017-08-02] MEDS ORDERED: POTA20TA5 PO (14:28)
[2017-08-02] MEDS ORDERED: FURO40TA PO (14:28)
--- NOTE | 2017-08-02 14:29 | HHI.DCPOC ---
Discharge Care Plan Diagnosis: (1) Pleural effusion (2) Normocytic normochromic anemia (3) Thrombocytopenia (4) Matti-like granulomatosis (5) History of colon cancer Goals to Promote Your Health * To prevent worsening of your condition and complications * To maintain your health at the optimal level Directions to Meet Your Goals Take your medications as prescribed Follow your dietary instruction Follow activity as directed Keep your appointments as scheduled Take your immunizations and boosters as scheduled If your symptoms worsen call your PCP, if no PCP go to Urgent Care Center or Emergency Room Smoking is Dangerous to Your Health. Avoid second hand smoke Call the 24-hour hour crisis hotline for domestic abuse at Soren Jiménez MD, R2 Aug 02, 2017 14:29
--- NOTE | 2017-08-02 14:33 | HHI.DS ---
Discharge Summary Admission Date Jul 29, 2017 at 14:04 Discharge Date: Aug 02, 2017 Admitting Diagnosis recurrent pleural effusion (1) Recurrent pleural effusion on right Diagnosis: Principal Plan: Patient has had recurrent pleural effusions and subsequent thoracentesis. 6 in the last year. 3 in the last couple months. Previous thoracenteses showed evidence of transudate, without infection or malignancy. CXR (07/29): Consolidative changes and small effusion on the right stable in the interval CXR (07/31): No significant pleural effusion. Minimal opacity left upper lobe -Consult pulmonology, pt known to Dr. Jones, appreciate recs * Hold off on a repeat thoracentesis at present; will need if not proceeding with other intervention, such as pleurodesis * Repeat CXR, shows resolution of effusion * CTS consulted * Further diagnostic and or therapeutic intervention will depend on the results of diagnostic studies and clinical course -CT surgery consult, appreciate recs * If pleural effusion should recur then the patient can be evaluated at that time for possible video-assisted thoracoscopy with pleurodesis -Lasix 40mg daily -Home O2 walk test-no need for oxygen -O2 via NC as needed -Blood cultures- NGTD -Continue prednisone 5mg BID ICD Codes: J90 - Pleural effusion, not elsewhere classified Status: Acute (2) Lymphoproliferative disease Diagnosis: Secondary Plan: Patient presents with mild cytosis with increase in absolute lymphocyte count. Peripheral smear shows smudge cells. History of thrombocytopenia and chronic normocytic anemia as well. History of splenomegaly. Fibrinogen 155. LDH 182. Iron borderline low at 64, ferritin 45. Haptoglobin 45 Abdominal US- liver cirrhosis, splenomegaly, and small ascites -Hematology consulted-appreciate recs -Anemia workup: normocytic due to CLL vs cirrhosis. -Thrombocytopenia workup -Trend fibrinogen -Give cryoprecipitate if fibrinogen <150 -Flow cytometry pending to work up CLL -Hepatitis profile negative. HIV negative ICD Codes: D47.9 - Neoplasm of uncertain behavior of lymphoid, hematopoietic and related tissue, unspecified Status: Acute (3) Aortic valvar stenosis Diagnosis: Secondary Plan: Systolic murmur on exam. 2D Echo (07/30): Mild to moderate aortic stenosis; EF 60-65%. Normal systolic and diastolic function -Continue to monitor; aortic stenosis may be contributing to his dyspnea -Continue home Coreg 3.125mg BID ICD Codes: I35.0 - Nonrheumatic aortic (valve) stenosis Status: Chronic (4) Granulomatosis with polyangiitis Diagnosis: Secondary Plan: History of granulomatosis with polyangiitis. -Patient on chronic steroids. Continue as above. -Continue to monitor. ICD Codes: M31.30 - Matti's granulomatosis without renal involvement Status: Chronic (5) History of colon cancer Diagnosis: Secondary Plan: History of colon cancer. S/p partial colectomy and chemotherapy. Bony lesion noted on xray -Continue to follow. F/u outpatient ICD Codes: Z85.038 - Personal history of other malignant neoplasm of large intestine Status: Chronic (6) FEN Diagnosis: Secondary Plan: Fluids: Tolerating PO Electrolytes: monitor, replace PRN Nutrition: Regular diet DVT ppx: heparin/SCDs Status: Acute Consultants Pulmonology, Cardiothoracic surgery, Heme/Onc, Palliative Care Brief History Patient is a 82-year-old male with history of Matti's vasculitis, colon cancer, recurrent pleural effusions who presents with shortness of breath. Patient states he thinks the pleural effusion came back. He last had one drained last Saturday by interventional radiology. He says after that, he was back to baseline. Was doing fine until Saturday around in, and then was having shortness of breath again. He states that he has had 6 thoracentesis this year, but they're becoming more frequent. He states he is not sure of the cause. The shortness of breath is worse when he is laying down, improves with sitting up or standing. Denies any chest pain. States the shortness of breath is improved with oxygen. No oxygen at home. He also had 2 thoracentesis done in the last 5 weeks in [place]. Denies any cough. History of Matti's, which he states he has blurry vision and dizziness with. Was diagnosed 7 years ago. Denies any rhinorrhea, sore throat, cold symptoms. States he uses a walker at home, otherwise is fairly independent. He does live with a bell valet. Eyes any chest pain, abdominal pain, leg pain. CBC/BMP: 08/01/17 0729 08/01/17 0729 Significant Findings Laboratory Tests Test 07/31/17 06:13 08/01/17 07:29 White Blood Count 13.7 TH/MM3 (4.0-11.0) 16.9 TH/MM3 (4.0-11.0) Red Blood Count 3.14 MIL/MM3 (4.50-5.90) 3.01 MIL/MM3 (4.50-5.90) Hemoglobin 9.5 GM/DL (13.0-17.0) 8.9 GM/DL (13.0-17.0) Hematocrit 28.3 % (39.0-51.0) 27.3 % (39.0-51.0) Red Cell Distribution Width 18.0 % (11.6-17.2) 18.2 % (11.6-17.2) Platelet Count 84 TH/MM3 (150-450) 88 TH/MM3 (150-450) Lymphocytes (%) (Auto) 70.1 % (9.0-44.0) 76.6 % (9.0-44.0) Lymphocytes # (Auto) 9.6 TH/MM3 (1.0-4.8) 12.9 TH/MM3 (1.0-4.8) Lymphocytes % 74 % (9-44) 64 % (9-44) Platelet Estimate LOW (NORMAL) LOW (NORMAL) Ovalocytes 1+ (NORMAL) 1+ (NORMAL) Fibrinogen 155 mg/dL (227-377) 142 mg/dL (227-377) Blood Urea Nitrogen 24 MG/DL (7-18) 23 MG/DL (7-18) Total Protein 4.3 GM/DL (6.4-8.2) 4.2 GM/DL (6.4-8.2) Calcium Level 7.3 MG/DL (8.5-10.1) 7.1 MG/DL (8.5-10.1) Estimat Glomerular Filtration Rate 84 ML/MIN (>89) Iron Level 64 MCG/DL (65-175) Vitamin B12 Level 1475 PG/ML (193-986) Tear Drop Cells 1+ (NORMAL) Random Glucose 110 MG/DL (74-106) Immunoglobulin M 10 MG/DL (37-225) Imaging Last Impressions Abdomen Ultrasound 08/02/17 0000 Signed Impressions: Service Date/Time: Wednesday, August 02, 2017 08:36 - CONCLUSION: 1. Sonographic findings consistent with underlying cirrhosis. 2. Splenomegaly. 3. Partial visualization of bilateral pleural effusions. 4. Small volume ascites. Eagle Boucher Jr., MD Chest X-Ray 07/31/17 0000 Signed Impressions: Service Date/Time: Monday, July 31, 2017 13:46 - CONCLUSION: There is no significant pleural effusion. Minimal opacity left upper lobe. Afshin Shin MD FACR PE at Discharge GENERAL: NAD, Lying in bed SKIN: Scattered ecchymoses on lower legs. Cool and dry. Pulses intact. CARDIOVASCULAR: Regular rate and rhythm without gallops, or rubs. Systolic murmur. RESPIRATORY: Coarse breath sounds. Decreased breath sounds, especially in lower lobes. No increased work of breathing. GASTROINTESTINAL: Abdomen soft, non-tender, nondistended. BS+ MUSCULOSKELETAL: No edema. No calf tenderness. NEUROLOGICAL: Awake and alert. Normal speech. Hospital Course Patient is a 82-year-old male with history of cranial pneumatosis polyangiitis, cirrhosis, recurrent pleural effusions who presented with shortness of breath and concern for new pleural effusion. He has had several drain over the last few months, and had 1 drink drained 3 days before. Chest x- ray showed right pleural effusion. Pulmonology consulted, patient known to Dr. Jones. Cardiothoracic surgery was consulted for the option of pleurodesis. Repeat chest x-ray showed resolved resolution of pleural effusion. No acute intervention needed. Pathology/oncology was also consulted, due to increase in absolute lymphocyte count and smudge cells. They're concerned about CLL, and workup was initiated. Definitive results pending, but patient was stable. Fibrinogen was low and was given cryoprecipitate, but cleared for discharge by hematology for follow-up. Part of care was also consulted by pulmonology due to concerns for confusion and discussion of goals of care. Patient remained stable and shortness of breath improved throughout hospitalization. CBC ordered for 3 days due to increasing white count. Discharged in stable condition with follow- up with PCP, pulmonology, hematology. Pt Condition on Discharge: Stable Discharge Disposition: Discharge Home Discharge Instructions DIET: Follow Instructions for: As Tolerated, No Restrictions Activities you can perform: Regular-No Restrictions Follow up Referrals: Hematology - 1 Week with Ez Maria MD PCP Follow-up - 1 Week with Angelika Stack MD Pulmonology - 1 Week with Alo Jones MD New Orders: CBC NO DIFF - 08/06/17 New Medications: Potassium Chloride Microencaps (Potassium Chloride Microencaps) 20 Meq Tab 20 MEQ PO DAILY for Electrolyte Replacement, #30 TAB 0 Refills Furosemide (Furosemide) 40 Mg Tab 40 MG PO DAILY, #30 TAB Continued Medications: Carvedilol (Coreg) 3.125 Mg Tab 3.125 MG PO BID, #60 TAB 0 Refills Cyanocobalamin (Vitamin B-12) 1,000 Mcg Subl 1000 MCG SL DAILY for Nutritional Supplement, TAB.SL 0 Refills Prednisone (Prednisone) 5 Mg Tab 5 MG PO BID, TAB 0 Refills Discontinued Medications: Furosemide (Lasix) 40 Mg Tab 40 MG PO BID, #60 TAB 0 Refills Soren Jiménez MD, R2 Aug 02, 2017 14:33
[2017-08-02 15:50] LABS: AUTOMATED NEUTROPHIL # 6.9 TH/MM3 (1.8-7.7); BASOPHIL # 0.1 TH/MM3 (0-0.2); BASOPHIL % 0.3 % (0.0-2.0); EOSINOPHIL # 0.1 TH/MM3 (0-0.4); EOSINOPHIL % 0.6 % (0.0-4.0); HEMATOCRIT 30.2 % (39.0-51.0); LYMPH % 63.3 % (9.0-44.0); LYMPHOCYTE # 13.6 TH/MM3 (1.0-4.8); MEAN CELL VOLUME 91.3 FL (80.0-100.0); MEAN CORPUSCULAR HEMOGLOBIN 29.6 PG (27.0-34.0); MEAN CORPUSCULAR HGB CONC 32.4 % (32.0-36.0); MONO % 3.6 % (0.0-8.0); NEUT % 32.2 % (16.0-70.0); PLATELET COUNT 124 TH/MM3 (150-450); RED BLOOD COUNT 3.31 MIL/MM3 (4.50-5.90); RED CELL DISTRIBUTION WIDTH 18.4 % (11.6-17.2); WHITE BLOOD COUNT 21.5 TH/MM3 (4.0-11.0)
[2017-08-02 15:53] LABS: HEMO FLAGS AUTO DIFF
--- NOTE | 2017-08-02 16:18 | HHI.HCPN ---
Reason for visit a. To assist with evaluation and management of symptoms including: Dyspnea b. To assist medical decision maker(s) with: better understanding of current medical conditions; weighing benefits/burdens of medical treatment options; making medical treatment decisions. Subjective/Interval History Pt states he wants to go home. Had cryo yesterday due to low fibrinogen. No active bleeding. He states he wants to go home, denies any distress. Family/friend interactions Spoke with Nephew Dr. Sidney Bowles who is a physician in [place] and [place]. Update him on pt medical situation and advance directive completed. He was appreciative of the call. Ask specialist to call anytime to touch base, and that he would be appreciate it. He would like to speak with primary care team and inqurie discharge meds. I have contacted family medicine services and they will follow up with family. Advance Directives Health Care Surrogate: Copy in medical record Objective Vital Signs Date Time Temp Pulse Resp B/P (MAP) Pulse Ox O2 Delivery O2 Flow Rate FiO2 08/02/17 12:00 Room Air 08/02/17 08:40 Room Air 08/02/17 08:00 98.1 61 20 128/59 (82) 94 08/02/17 04:00 98.0 67 20 118/60 (79) 96 08/02/17 03:13 92/50 (64) 08/01/17 22:09 96 21 08/01/17 20:10 Room Air 08/01/17 20:00 97.9 72 20 126/62 (83) 96 08/01/17 18:19 95 08/01/17 18:13 98.4 70 20 113/59 94 08/01/17 17:52 98.1 64 20 114/58 95 Intake & Output 08/02/17 08/02/17 07:00 19:00 Intake Total 434 ml Output Total 275 ml Balance 159 ml IV Total 200 ml Cryoprecipitate 224 ml Blood Product IV Normal Saline Flush 10 ml Output Urine Total 275 ml # Voids 2 Physical Exam CONSTITUTIONAL/GENERAL: This is an elderly gentlemen, calm, and in no apparent distress. SKIN: No jaundice, rashes, or lesions. Ecchymoses on upper extremities. No wounds seen anteriorly. Skin temperature appropriate. Not diaphoretic. HEAD: Atraumatic. Normocephalic. EYES: Pupils equal and round and reactive. Extraocular motions intact. No scleral icterus. No injection or drainage. Fundi not examined. ENT: Hearing grossly normal. Nose without bleeding or purulent drainage. Throat without visible erythema, exudates, masses, or lesions. NECK: Trachea midline. Supple, nontender. No palpable thyroid enlargement or nodularity. CARDIOVASCULAR: Regular rate and rhythm with 2/6 MARTÍN. No JVD. Peripheral pulses symmetric. RESPIRATORY/CHEST: Symmetric, unlabored respirations. Faint rhonchi on the right. No wheezes, rales, or rhonchi. GASTROINTESTINAL: Abdomen soft, non-tender, nondistended. No hepato-splenomegaly , or palpable masses. No guarding. Bowel sounds present. GENITOURINARY: Without palpable bladder distension. Rosas catheter in place. MUSCULOSKELETAL: Extremities without clubbing, cyanosis, or edema. No joint tenderness or effusion noted. No calf tenderness. No mottling or clubbing. LYMPHATICS: No palpable cervical or supraclavicular adenopathy. NEUROLOGICAL: Awake and alert. Motor and sensory grossly within normal limits. Follows commands. Cognitively sharp. Moves all extremities. PSYCHIATRIC: No obvious anxiety/depression. no apparent hallucinations or other psychotic thought process. Diagnostic Tests Laboratory Laboratory Tests Test 07/31/17 06:13 08/01/17 07:29 08/02/17 15:10 White Blood Count 13.7 TH/MM3 (4.0-11.0) 16.9 TH/MM3 (4.0-11.0) 21.5 TH/MM3 (4.0-11.0) Red Blood Count 3.14 MIL/MM3 (4.50-5.90) 3.01 MIL/MM3 (4.50-5.90) 3.31 MIL/MM3 (4.50-5.90) Hemoglobin 9.5 GM/DL (13.0-17.0) 8.9 GM/DL (13.0-17.0) 9.8 GM/DL (13.0-17.0) Hematocrit 28.3 % (39.0-51.0) 27.3 % (39.0-51.0) 30.2 % (39.0-51.0) Mean Corpuscular Volume 90.3 FL (80.0-100.0) 90.7 FL (80.0-100.0) 91.3 FL (80.0-100.0) Mean Corpuscular Hemoglobin 30.4 PG (27.0-34.0) 29.7 PG (27.0-34.0) 29.6 PG (27.0-34.0) Mean Corpuscular Hemoglobin Concent 33.7 % (32.0-36.0) 32.7 % (32.0-36.0) 32.4 % (32.0-36.0) Red Cell Distribution Width 18.0 % (11.6-17.2) 18.2 % (11.6-17.2) 18.4 % (11.6-17.2) Platelet Count 84 TH/MM3 (150-450) 88 TH/MM3 (150-450) 124 TH/MM3 (150-450) Mean Platelet Volume 8.4 FL (7.0-11.0) 8.3 FL (7.0-11.0) 8.3 FL (7.0-11.0) Neutrophils (%) (Auto) 26.3 % (16.0-70.0) 20.5 % (16.0-70.0) 32.2 % (16.0-70.0) Lymphocytes (%) (Auto) 70.1 % (9.0-44.0) 76.6 % (9.0-44.0) 63.3 % (9.0-44.0) Monocytes (%) (Auto) 2.8 % (0.0-8.0) 2.3 % (0.0-8.0) 3.6 % (0.0-8.0) Eosinophils (%) (Auto) 0.4 % (0.0-4.0) 0.3 % (0.0-4.0) 0.6 % (0.0-4.0) Basophils (%) (Auto) 0.4 % (0.0-2.0) 0.3 % (0.0-2.0) 0.3 % (0.0-2.0) Neutrophils # (Auto) 3.6 TH/MM3 (1.8-7.7) 3.5 TH/MM3 (1.8-7.7) 6.9 TH/MM3 (1.8-7.7) Lymphocytes # (Auto) 9.6 TH/MM3 (1.0-4.8) 12.9 TH/MM3 (1.0-4.8) 13.6 TH/MM3 (1.0-4.8) Monocytes # (Auto) 0.4 TH/MM3 (0-0.9) 0.4 TH/MM3 (0-0.9) 0.8 TH/MM3 (0-0.9) Eosinophils # (Auto) 0.1 TH/MM3 (0-0.4) 0.1 TH/MM3 (0-0.4) 0.1 TH/MM3 (0-0.4) Basophils # (Auto) 0.1 TH/MM3 (0-0.2) 0.1 TH/MM3 (0-0.2) 0.1 TH/MM3 (0-0.2) CBC Comment AUTO DIFF AUTO DIFF AUTO DIFF Differential Total Cells Counted 100 100 Neutrophils % (Manual) 21 % (16-70) 30 % (16-70) Lymphocytes % 74 % (9-44) 64 % (9-44) Monocytes % 4 % (0-8) 2 % (0-8) Neutrophils # (Manual) 3.0 TH/MM3 (1.8-7.7) 5.2 TH/MM3 (1.8-7.7) Metamyelocytes 1 % (0-1) 1 % (0-1) Differential Comment FINAL DIFF MANUAL FINAL DIFF MANUAL Smudge Cells PRESENT PRESENT Platelet Estimate LOW (NORMAL) LOW (NORMAL) Platelet Morphology Comment NORMAL (NORMAL) NORMAL (NORMAL) Ovalocytes 1+ (NORMAL) 1+ (NORMAL) Acanthocytes OCC (NORMAL) Haptoglobin 45 MG/DL (30-200) Fibrinogen 155 mg/dL (227-377) 142 mg/dL (227-377) Blood Urea Nitrogen 24 MG/DL (7-18) 23 MG/DL (7-18) Creatinine 0.87 MG/DL (0.60-1.30) 0.82 MG/DL (0.60-1.30) Random Glucose 94 MG/DL (74-106) 110 MG/DL (74-106) Total Protein 4.3 GM/DL (6.4-8.2) 4.2 GM/DL (6.4-8.2) Calcium Level 7.3 MG/DL (8.5-10.1) 7.1 MG/DL (8.5-10.1) Lactate Dehydrogenase 182 U/L (87-241) Sodium Level 139 MEQ/L (136-145) 142 MEQ/L (136-145) Potassium Level 3.9 MEQ/L (3.5-5.1) 3.8 MEQ/L (3.5-5.1) Chloride Level 104 MEQ/L (98-107) 107 MEQ/L (98-107) Carbon Dioxide Level 26.5 MEQ/L (21.0-32.0) 28.6 MEQ/L (21.0-32.0) Anion Gap 9 MEQ/L (5-15) 6 MEQ/L (5-15) Estimat Glomerular Filtration Rate 84 ML/MIN (>89) 90 ML/MIN (>89) Protein Corrected Calcium 8.9 MG/DL (8.5-10.1) 8.7 MG/DL (8.5-10.1) Iron Level 64 MCG/DL (65-175) Total Iron Binding Capacity 263 MCG/DL (250-450) Percent Iron Saturation 24.3 % (20-50) Ferritin 45 NG/ML (26-388) Vitamin B12 Level 1475 PG/ML (193-986) Folate 7.8 NG/ML (3.1-17.5) Hepatitis B Surface Antigen NEGATIVE (NEGATIVE) Hepatitis B Core IgM Antibody NEGATIVE (NEGATIVE) Hepatitis C Antibody NEGATIVE (NEGATIVE) HIV (1&2) Antibody NEGATIVE (NEGATIVE) Eosinophils % 3 % (0-4) Tear Drop Cells 1+ (NORMAL) Immunoglobulin G Total 849 MG/DL (690-1690) Immunoglobulin A 178 MG/DL (107-591) Immunoglobulin M 10 MG/DL (37-225) Result Diagram: 08/02/17 1510 08/01/17 9502 Assessment and Plan Disease Oriented Problem List: (1) Recurrent pleural effusion on right Comment: etiology currently unknown (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 Alternate Surrogate is Amador Bowles (Lucila's son) who is a physician. In addition he states Boni Harrell (professor of voice) [phone] Bhavani Rodriguez [phone] can be notified and be informed of his condition. Prognosis 82 year old with recurrent pleural effusion of unknown etiology, with multiple comorbities including wegners granulomatosis, chf, cad, cirrhosis. He has lymphoproliferative disorder in which workup up is underway. Prognosis is guarded. Code Status: Alternative Code Plan == Capacity- Pt has capacity to make medical decisions, and also to determine a Health Care surrogate. On my visit pt is alert. He is oriented to person, place and date. He is able to tell me why he came to the hospital "I felt short of breath." He is able to relate he was in [facility] and also had recent hospitalization. He is able to list sister phone number of the top of his head. Able to tell me the oncologist name "Dr. Maria." He has capacity to make medical decisions. He demonstrate basic understanding of his pleural effusion, and has capacity to weigh risk and benefits. == Health Care Surrogate.Today he completed Health Care Surrogate as Lucila Bowles ([phone] (cell) & [phone] (she is a retired RN). Alternate Surrogate is Amador Bowles (Lucila's son) who is a physician. In addition he states Boni Harrell (professor of voice) and Bhavani Rodriguez can be notified and be informed of his condition. == Goals of Care Discussed with him current test being run. Oncology also came in and spoke to patient during meeting. Oncology feels if it was CLL and early, it would only be watchful waiting, and nothing aggressive. Pt's health care specialist Boni Harrell was also present during some of the conversation. Discussed goals of care. He feels he want to know the reason for his pleural effusion, and is amenable to continue the tests, and wait for results. Discussing code status, and Boni Harrell was present, he states he does not want intubation, but bipap only. I ask him if he would like the input of inflated pad buffer before making that decision, he states no. He does endorse he wants acls drugs/shock/compression. He wants to go home, but still wants to continue workup. Dr. Bowles (alternative health care surrogate, nephew and physician) would appreciate if specialist/ other physician/ primary physician to be in contact with him updates. He is available any time Patient was amenable for his nephew / Dr. Sidney Bowles to know about his medical condition. == Code: Alternate code. Please see discussion above. No intubation, but amenable to bipap/ acls drugs/ shock/compression == symptom- dyspnea- defer to medical team. == Palliative will continue to follow. Time Spent Total Floor Time (mins): 35 Face to Face Time (mins): 20 Attestation To help prompt me to consider important information that might be impacting today's encounter and assessment, information from prior notes written by myself or my colleagues may have been "brought forward" into today's note. My signature on this note, however, is an attestation that I personally performed the exam, history, and/or decision-making noted today, and, unless otherwise indicated, the interactions with patient, family, and staff as well as the review of records all occurred today. I also attest that the listed assessment and stated plan reflect my best clinical judgment today based on the combination of historical information, prior notes, and today's exam/ interactions. When time spent is documented, it refers only to time spent today by the signer, or if indicated, combined time spent today by collaborating physician/nurse practitioner. Benjie Camara MD Aug 02, 2017 16:18
[2017-08-02 16:30] LABS: BANDS 2 % (0-6); POLYS (SEG NEUTROPHILS) 40 % (16-70); WBC DIFF SAMPLE 100
[2017-08-02 16:32] LABS: ACANTHOCYTES 1+ (NORMAL); PLATELET ESTIMATE SMEAR LOW (NORMAL); PLATELET MORPHOLOGY NORMAL (NORMAL)
[2017-08-02 16:33] LABS: SCAN/DIFF FINAL DIFF MANUAL; SMUDGE CELLS PRESENT PRESENT
[2017-08-07] MEDS ORDERED: SPIR100T PO (09:48)
[2017-08-07] MEDS ORDERED: PRED2.5T PO (09:48)
[2017-08-13] MEDS ORDERED: SPIR100T PO (09:42)
== END 2017-08-02 15:54 | disposition home or self-care (01) | DRG 187 ==
LOC: NEPE 12:05 → NEDA 14:04 → N04A 18:10
PROVIDERS: ADMIT Family Medicine; ATTEND Family Medicine
PROC: 30233M1 Transfusion of Nonautologous Plasma Cryoprecipitate into Peripheral Vein, Percutaneous Approach (ICD-10-PCS; principal; 2017-08-01)
DX: J90 Pleural effusion, not elsewhere classified (principal); M31.30 Wegener's granulomatosis without renal involvement; I50.32 Chronic diastolic (congestive) heart failure; I11.0 Hypertensive heart disease with heart failure; K76.6 Portal hypertension; D69.6 Thrombocytopenia, unspecified; K74.60 Unspecified cirrhosis of liver; D47.9 Neoplasm of uncertain behavior of lymphoid, hematopoietic and related tissue, unspecified; E83.51 Hypocalcemia; D64.9 Anemia, unspecified; Z85.038 Personal history of other malignant neoplasm of large intestine; Z92.21 Personal history of antineoplastic chemotherapy; K21.9 Gastro-esophageal reflux disease without esophagitis; I25.2 Old myocardial infarction; Z92.3 Personal history of irradiation; Z79.52 Long term (current) use of systemic steroids; Z77.090 Contact with and (suspected) exposure to asbestos; I35.0 Nonrheumatic aortic (valve) stenosis; Z87.891 Personal history of nicotine dependence; R16.1 Splenomegaly, not elsewhere classified; I25.10 Atherosclerotic heart disease of native coronary artery without angina pectoris; Z77.22 Contact with and (suspected) exposure to environmental tobacco smoke (acute) (chronic); I77.6 Arteritis, unspecified; M85.80 Other specified disorders of bone density and structure, unspecified site
CPT/HCPCS: 32555; 36430; 71010; 71020; 76700; 80048; 80053; 82607; 82728; 82746; 82784; 83010; 83540; 83550; 83615; 84155; 84165; 85007; 85027; 85384; 85610; 85730; 86140; 86703; 86705; 86803; 86965; 87040; 87340; 88184; 88185; 88230; 88264; 88280; 93306; 94620; C1729; G0378; J1644; J7050; J7512

== ENCOUNTER 2017-09-28 16:04 | Inpatient (IN) | payer MEDICARE ==
[~2017-09-28] VITALS: Ht 170.2 cm; Wt 65.2 kg
[~2017-09-28 16:04] MED LIST changes: -FURO1TAB60 PO; +FURO40TA PO; -LACT1CAP20 PO; +POTA20TA5 PO; +PRED2.5T PO; -PRED5TAB PO; +SPIR100T PO
[2017-09-28 16:06] VITALS: BP 135/69; PULSE 63; RESP 16; TEMP 98; O2SAT 97
--- NOTE | 2017-09-28 17:09 | RADRPT ---
EXAM DATE/TIME: 09/28/2017 16:45 [facility] COMPARISON: CHEST PA & LAT, July 31, 2017, 13:46. CHEST SINGLE AP, July 29, 2017, 12:28. INDICATIONS : Shortness of breath. MEDICAL HISTORY : Cardiovascular disease. Congestive heart failure. Hypertension. colorectal cancer. SURGICAL HISTORY : Colon resection. Cardiac cath. ENCOUNTER: Initial ACUITY: 1 day PAIN SCORE: 0/10 LOCATION: Bilateral chest FINDINGS: A single AP portable erect view of the chest was obtained and demonstrates a small right pleural effu gwen which is increased from the prior study. There is patchy opacity remaining at the right lung bas e. The heart size is at the upper limits of normal with no perihilar edema. The bony thorax remains i ntact with calcified bone infarcts in the right humeral head again noted. CONCLUSION: 1. Small right pleural effusion which is mildly increased from the prior study. 2. Patchy opacity at the right lung base. Bryn Adamson MD on September 28, 2017 at 17:06 Board Certified Radiologist. This report was verified electronically.
[2017-09-28 17:18] LABS: AUTOMATED NEUTROPHIL # 4.2 TH/MM3 (1.8-7.7); BASOPHIL % 0.8 % (0.0-2.0); EOSINOPHIL # 0.1 TH/MM3 (0-0.4); EOSINOPHIL % 1.2 % (0.0-4.0); HEMATOCRIT 30.2 % (39.0-51.0); LYMPH % 22.9 % (9.0-44.0); LYMPHOCYTE # 1.3 TH/MM3 (1.0-4.8); MEAN CELL VOLUME 86.6 FL (80.0-100.0); MEAN CORPUSCULAR HEMOGLOBIN 28.5 PG (27.0-34.0); MEAN CORPUSCULAR HGB CONC 32.9 % (32.0-36.0); MONO % 3.8 % (0.0-8.0); NEUT % 71.3 % (16.0-70.0); PLATELET COUNT 90 TH/MM3 (150-450); RED BLOOD COUNT 3.49 MIL/MM3 (4.50-5.90); RED CELL DISTRIBUTION WIDTH 17.8 % (11.6-17.2); WHITE BLOOD COUNT 5.9 TH/MM3 (4.0-11.0)
[2017-09-28 17:19] LABS: HEMO FLAGS AUTO DIFF
--- NOTE | 2017-09-28 17:19 | PD ---
HPI Chief Complaint: Edema Time Seen by Provider: 16:31 Travel History International Travel<30 days: No Contact w/Intl Traveler<30days: No Traveled to known affect area: No History of Present Illness HPI 82-year-old male with history of leukemia started chemotherapy on Saturday and Saturday of this week, followed by oncologist Dr. Maria, [facility], here for evaluation of generalized malaise, bilateral lower extremity edema, shortness of breath. Patient is also having some chest tightness which has been going on for the last couple of days. He has a nonproductive cough. No history of DVT or PE. He has had subjective fevers and chills. PFSH Past Medical History Arthritis: No Cancer: Yes (COLON, LEUKEMIA) Cardiac Catheterization: Yes Cardiovascular Problems: Yes Chemotherapy: Yes (11/04-12/06, 09/17) Chest Pain: Yes Congestive Heart Failure: Yes Cerebrovascular Accident: Yes Diabetes: No Diminished Hearing: Yes Endocrine: No Gastrointestinal Disorders: Yes (colon ca) GERD: Yes Genitourinary: No Headaches: No Hepatitis: No Hiatal Hernia: Yes (hernia repair 2016w/ Dr. John Jones) Hypertension: Yes Immune Disorder: No Implanted Vascular Access Dvce: No Medical other: Yes (non alcoholic cirrhosis) Musculoskeletal: Yes Neurologic: Yes (wedginers disease) Psychiatric: No Respiratory: Yes Myocardial Infarction: Yes (SEP 2015) Radiation Therapy: Yes (11/04-12/06) Seizures: No Thyroid Disease: No Past Surgical History Abdominal Surgery: Yes (colon cancer surgery 2004) Cardiac Surgery: Yes (cardiac cath) Ear Surgery: No Endocrine Surgery: No Eye Surgery: Yes (cataract sx) Genitourinary Surgery: No Gynecologic Surgery: No Neurologic Surgery: No Oral Surgery: No Thoracic Surgery: No Other Surgery: Yes (colon ca, eye surgery) Social History Alcohol Use: Yes (glass wine daily) Tobacco Use: No Substance Use: No Allergies-Medications (Allergen,Severity, Reaction): Coded Allergies: No Known Allergies (Verified , 08/07/17) Reported Meds & Prescriptions Reported Meds & Active Scripts Active Prednisone 2.5 Mg Tab 2.5 Mg PO BID Furosemide 40 Mg Tab 40 Mg PO DAILY Reported Coreg (Carvedilol) 3.125 Mg Tab 3.125 Mg PO BID Review of Systems Except as stated in HPI: all other systems reviewed are Neg Physical Exam Narrative GENERAL: Well-developed, well-nourished, awake, alert, no apparent distress. SKIN: Focused skin assessment warm/dry. HEAD: Atraumatic. Normocephalic. EYES: Pupils equal and round. No scleral icterus. No injection or drainage. ENT: Mucous membranes pink and moist. NECK: Trachea midline. No JVD. CARDIOVASCULAR: Regular rate and rhythm. No murmur appreciated. RESPIRATORY: No accessory muscle use. Clear to auscultation. Breath sounds equal bilaterally. GASTROINTESTINAL: Abdomen soft, mildly distended, no tenderness. MUSCULOSKELETAL: No obvious deformities. No clubbing. No cyanosis. Moderate bilateral lower extremity edema from foot to thigh. NEUROLOGICAL: Awake and alert. No obvious cranial nerve deficits. Motor grossly within normal limits. Normal speech. PSYCHIATRIC: Appropriate mood and affect; insight and judgment normal. Data Data Last Documented VS Vital Signs Date Time Temp Pulse Resp B/P (MAP) Pulse Ox O2 Delivery O2 Flow Rate FiO2 09/28/17 18:15 62 19 155/67 (96) 95 Room Air 09/28/17 16:06 98.0 Orders Orders Complete Blood Count With Diff (09/28/17 16:36) Comprehensive Metabolic Panel (09/28/17 16:36) B-Type Natriuretic Peptide (09/28/17 16:36) Act Partial Throm Time (Ptt) (09/28/17 16:36) Prothrombin Time / Inr (Pt) (09/28/17 16:36) Ckmb (Isoenzyme) Profile (09/28/17 16:36) Troponin I (09/28/17 16:36) Influenzae A/B Antigen (09/28/17 16:36) Blood Culture (09/28/17 16:36) Iv Access Insert/Monitor (09/28/17 16:36) Electrocardiogram (09/28/17 16:36) Ecg Monitoring (09/28/17 16:36) Oximetry (09/28/17 16:36) Oxygen Administration (09/28/17 16:36) Chest, Single Ap (09/28/17 16:36) Ct Pulmonary Angiogram (09/28/17 17:21) Urinalysis - C+S If Indicated (09/28/17 18:14) Labs Laboratory Tests Test 09/28/17 16:40 09/28/17 18:17 White Blood Count 5.9 TH/MM3 Red Blood Count 3.49 MIL/MM3 Hemoglobin 9.9 GM/DL Hematocrit 30.2 % Mean Corpuscular Volume 86.6 FL Mean Corpuscular Hemoglobin 28.5 PG Mean Corpuscular Hemoglobin Concent 32.9 % Red Cell Distribution Width 17.8 % Platelet Count 90 TH/MM3 Mean Platelet Volume 8.9 FL Neutrophils (%) (Auto) 71.3 % Lymphocytes (%) (Auto) 22.9 % Monocytes (%) (Auto) 3.8 % Eosinophils (%) (Auto) 1.2 % Basophils (%) (Auto) 0.8 % Neutrophils # (Auto) 4.2 TH/MM3 Lymphocytes # (Auto) 1.3 TH/MM3 Monocytes # (Auto) 0.2 TH/MM3 Eosinophils # (Auto) 0.1 TH/MM3 Basophils # (Auto) 0.0 TH/MM3 CBC Comment AUTO DIFF Differential Comment AUTO DIFF CONFIRMED Platelet Estimate LOW Platelet Morphology Comment NORMAL Ovalocytes 1+ Acanthocytes OCC Keratocytes OCC Prothrombin Time 12.2 SEC Prothromb Time International Ratio 1.1 RATIO Activated Partial Thromboplast Time 24.7 SEC Blood Urea Nitrogen 40 MG/DL Creatinine 1.30 MG/DL Random Glucose 126 MG/DL Total Protein 5.4 GM/DL Albumin 2.3 GM/DL Calcium Level 7.3 MG/DL Alkaline Phosphatase 85 U/L Aspartate Amino Transf (AST/SGOT) 40 U/L Alanine Aminotransferase (ALT/SGPT) 21 U/L Total Bilirubin 0.8 MG/DL Sodium Level 140 MEQ/L Potassium Level 4.0 MEQ/L Chloride Level 108 MEQ/L Carbon Dioxide Level 25.0 MEQ/L Anion Gap 7 MEQ/L Estimat Glomerular Filtration Rate 53 ML/MIN Protein Corrected Calcium 8.2 MG/DL Total Creatine Kinase 47 U/L Troponin I LESS THAN 0.02 NG/ML B-Type Natriuretic Peptide 171 PG/ML Urine Color YELLOW Urine Turbidity CLEAR Urine pH 5.0 Urine Specific [place] 1.012 Urine Protein TRACE mg/dL Urine Glucose (UA) NEG mg/dL Urine Ketones NEG mg/dL Urine Occult Blood MOD Urine Nitrite NEG Urine Bilirubin NEG Urine Urobilinogen LESS THAN 2.0 MG/DL Urine Leukocyte Esterase NEG Urine RBC 3 /hpf Urine WBC 1 /hpf Urine Hyaline Casts 6 /lpf Microscopic Urinalysis Comment CULT NOT INDICATED MDM Medical Decision Making Medical Screen Exam Complete: Yes Emergency Medical Condition: Yes Differential Diagnosis Pulmonary edema, CHF, pneumonia, ACS, pneumothorax, PE Narrative Course Initial vital signs show heart rate 63, blood pressure 135/69, pulse ox 99% on room air, oral temp of 98F. CBC: WBC 5.9, hemoglobin 9.9, hematocrit 30.2, platelets 90. CMP is remarkable for calcium 7.3, albumin 5.4 Cardiac enzymes are negative. BNP is 171. Chest x-ray: Small right pleural effusion which is mildly increased from the prior study. Patchy opacity at the right lung base. At approximately 7:00 PM at the end of my shift the patient was signed out to Dr. Camara who will follow up with CT pulmonary angiogram and disposition the patient. Bakari Charles MD Sep 28, 2017 17:19
[2017-09-28 17:23] LABS: APTT (PATIENT) 24.7 SEC (24.3-30.1); INTERNATIONAL NORMALIZED RATIO 1.1 RATIO; PROTHROMBIN TIME - PATIENT 12.2 SEC (9.8-11.6)
[2017-09-28 17:45] LABS: ACANTHOCYTES OCC (NORMAL); KERATOCYTES OCC (NORMAL); OVALOCYTES 1+ (NORMAL); PLATELET ESTIMATE SMEAR LOW (NORMAL); PLATELET MORPHOLOGY NORMAL (NORMAL); SCAN/DIFF AUTO DIFF CONFIRMED
[2017-09-28 18:01] LABS: ALKALINE PHOSPHATASE 85 U/L (45-117); ALT (GPT) 21 U/L (12-78); ANION GAP 7 MEQ/L (5-15); AST (GOT) 40 U/L (15-37); BLOOD UREA NITROGEN 40 MG/DL (7-18); CALCIUM-PROTEIN CORRECTED 8.2 MG/DL (8.5-10.1); CHLORIDE 108 MEQ/L (98-107); GLOMERULAR FILTRATION RATE 53 ML/MIN (>89); SODIUM (NA) 140 MEQ/L (136-145); TOTAL BILIRUBIN ADULT 0.8 MG/DL (0.2-1.0)
[2017-09-28 18:02] LABS: CREATINE KINASE 47 U/L (39-308)
[2017-09-28 18:15] VITALS: BP 155/67; PULSE 62; RESP 19; O2SAT 95
[2017-09-28 18:43] LABS: BLOOD, URINE MOD (NEG); COMMENT (UR) CULT NOT INDICATED; GLUCOSE,URINE NEG (NEG); HYALINE CAST, URINE 6 /lpf (RARE); KETONE, URINE NEG (NEG); NITRITE,URINE NEG (NEG); URINE COLOR YELLOW (YELLW/STRAW)
[2017-09-28 18:44] LABS: CULTURE IF INDICATED CULT NOT INDICATED
[2017-09-28] MEDS ORDERED: IOHEXOL 350 MG/ML 10 ML VIAL (for RAD DIAG) IVCONTRAST ONE (20:15)
--- NOTE | 2017-09-28 20:36 | PD ---
Physical Exam Date Seen by Provider: Sep 28, 2017 Data Data Last Documented VS Vital Signs Date Time Temp Pulse Resp B/P (MAP) Pulse Ox O2 Delivery O2 Flow Rate FiO2 09/28/17 18:15 62 19 155/67 (96) 95 Room Air 09/28/17 16:06 98.0 Orders Orders Complete Blood Count With Diff (09/28/17 16:36) Comprehensive Metabolic Panel (09/28/17 16:36) B-Type Natriuretic Peptide (09/28/17 16:36) Act Partial Throm Time (Ptt) (09/28/17 16:36) Prothrombin Time / Inr (Pt) (09/28/17 16:36) Ckmb (Isoenzyme) Profile (09/28/17 16:36) Troponin I (09/28/17 16:36) Influenzae A/B Antigen (09/28/17 16:36) Blood Culture (09/28/17 16:36) Iv Access Insert/Monitor (09/28/17 16:36) Electrocardiogram (09/28/17 16:36) Ecg Monitoring (09/28/17 16:36) Oximetry (09/28/17 16:36) Oxygen Administration (09/28/17 16:36) Chest, Single Ap (09/28/17 16:36) Ct Pulmonary Angiogram (09/28/17 17:21) Urinalysis - C+S If Indicated (09/28/17 18:14) Iohexol 350 Inj (Omnipaque 350 Inj) (09/28/17 20:15) Aspirin Chew (Aspirin Chew) (09/28/17 21:15) Admit Order (Ed Use Only) (09/28/17 21:35) Labs Laboratory Tests Test 09/28/17 16:40 09/28/17 18:17 White Blood Count 5.9 TH/MM3 Red Blood Count 3.49 MIL/MM3 Hemoglobin 9.9 GM/DL Hematocrit 30.2 % Mean Corpuscular Volume 86.6 FL Mean Corpuscular Hemoglobin 28.5 PG Mean Corpuscular Hemoglobin Concent 32.9 % Red Cell Distribution Width 17.8 % Platelet Count 90 TH/MM3 Mean Platelet Volume 8.9 FL Neutrophils (%) (Auto) 71.3 % Lymphocytes (%) (Auto) 22.9 % Monocytes (%) (Auto) 3.8 % Eosinophils (%) (Auto) 1.2 % Basophils (%) (Auto) 0.8 % Neutrophils # (Auto) 4.2 TH/MM3 Lymphocytes # (Auto) 1.3 TH/MM3 Monocytes # (Auto) 0.2 TH/MM3 Eosinophils # (Auto) 0.1 TH/MM3 Basophils # (Auto) 0.0 TH/MM3 CBC Comment AUTO DIFF Differential Comment AUTO DIFF CONFIRMED Platelet Estimate LOW Platelet Morphology Comment NORMAL Ovalocytes 1+ Acanthocytes OCC Keratocytes OCC Prothrombin Time 12.2 SEC Prothromb Time International Ratio 1.1 RATIO Activated Partial Thromboplast Time 24.7 SEC Blood Urea Nitrogen 40 MG/DL Creatinine 1.30 MG/DL Random Glucose 126 MG/DL Total Protein 5.4 GM/DL Albumin 2.3 GM/DL Calcium Level 7.3 MG/DL Alkaline Phosphatase 85 U/L Aspartate Amino Transf (AST/SGOT) 40 U/L Alanine Aminotransferase (ALT/SGPT) 21 U/L Total Bilirubin 0.8 MG/DL Sodium Level 140 MEQ/L Potassium Level 4.0 MEQ/L Chloride Level 108 MEQ/L Carbon Dioxide Level 25.0 MEQ/L Anion Gap 7 MEQ/L Estimat Glomerular Filtration Rate 53 ML/MIN Protein Corrected Calcium 8.2 MG/DL Total Creatine Kinase 47 U/L Troponin I LESS THAN 0.02 NG/ML B-Type Natriuretic Peptide 171 PG/ML Urine Color YELLOW Urine Turbidity CLEAR Urine pH 5.0 Urine Specific [place] 1.012 Urine Protein TRACE mg/dL Urine Glucose (UA) NEG mg/dL Urine Ketones NEG mg/dL Urine Occult Blood MOD Urine Nitrite NEG Urine Bilirubin NEG Urine Urobilinogen LESS THAN 2.0 MG/DL Urine Leukocyte Esterase NEG Urine RBC 3 /hpf Urine WBC 1 /hpf Urine Hyaline Casts 6 /lpf Microscopic Urinalysis Comment CULT NOT INDICATED [facility] Medical Record Reviewed: Yes Supervised Visit with CHIDI: No Narrative Course Patient was sent out to me by Dr. Charles at change of shift. Patient currently pending CTA of chest and admission to the hospital. Patient is an 82-year-old male with history of leukemia who started chemotherapy on Tuesdays and Wednesdays of this week, will follow-up with oncologist Dr. Vogel. Patient reports that he began to have chest pain or shortness of breath which has been ongoing for the past few days. Patient reports that he did have some chest pain this morning, reports that he feels tightness to his midsternum. Patient reports associated shortness of breath with his chest pain. Patient reports that symptoms last for hours and resolve on its own. Patient does follow-up with Dr. Retana in the office as he does report history of CAD. Patient reports that he has been having a nonproductive cough. Reports subjective fever/chills. Vital Signs Date Time Temp Pulse Resp B/P (MAP) Pulse Ox O2 Delivery O2 Flow Rate FiO2 09/28/17 18:15 62 19 155/67 (96) 95 Room Air 09/28/17 16:34 62 12 99 Room Air 09/28/17 16:06 98.0 63 16 135/69 (91) 97 CBC & BMP Diagram 09/28/17 16:40 Total Protein 5.4 L, Albumin 2.3 L, Calcium Level 7.3 *L, Alkaline Phosphatase 85, Aspartate Amino Transf (AST/SGOT) 40 H, Alanine Aminotransferase (ALT/SGPT) 21, Total Bilirubin 0.8 Last Impressions Chest X-Ray 09/28/17 1636 Signed Impressions: Service Date/Time: Thursday, September 28, 2017 16:45 - CONCLUSION: 1. Small right pleural effusion which is mildly increased from the prior study. 2. Patchy opacity at the right lung base. Bryn Adamson MD X-ray of the chest shows a patchy opacity at the right lung bases - family reports that every time he comes to the ER, he always has a "small pneumonia." CTA pending. Last Impressions CT Angiography 09/28/17 1721 Signed Impressions: Service Date/Time: Thursday, September 28, 2017 20:04 - CONCLUSION: 1. The study is negative for pulmonary embolism. 2. Large bilateral pleural effusions, similar to CT 10/06/16. 3. 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 Eagle Martinez MD Chest X-Ray 09/28/17 1636 Signed Impressions: Service Date/Time: Thursday, September 28, 2017 16:45 - CONCLUSION: 1. Small right pleural effusion which is mildly increased from the prior study. 2. Patchy opacity at the right lung base. Bryn Adamson MD CTA neg for pe, plan to obs for chest pain I reviewed all labs and studies with patient in detail including incidental findings Diagnosis Primary Impression: Chest pain Qualified Codes: R07.9 - Chest pain, unspecified Admitting Information Admitting Physician Requests: Observation Ami Camara DO Sep 28, 2017 20:35
--- NOTE | 2017-09-28 20:51 | RADRPT ---
EXAM DATE/TIME: 09/28/2017 20:04 [facility] COMPARISON: CHEST SINGLE AP, September 28, 2017, 16:45. CT PULMONARY ANGIOGRAM, October 06, 2016, 14:58. INDICATIONS : Short of breath with lower extremety swelling. IV CONTRAST: 80 cc Omnipaque 350 (iohexol) IV RADIATION DOSE: 23.15 CTDIvol (mGy) MEDICAL HISTORY : Cardiovascular disease. Congestive heart failure. Leukemia.Colorectal cancer. SURGICAL HISTORY : None. ENCOUNTER: Initial ACUITY: 1 day PAIN SCALE: 0/10 LOCATION: Bilateral chest TECHNIQUE: Volumetric scanning of the chest was performed using a pulmonary embolism protocol MIP images were re constructed. Using automated exposure control and adjustment of the mA and/or kV according to patien t size, radiation dose was kept as low as reasonably achievable to obtain optimal diagnostic quality images. DICOM format image data is available electronically for review and comparison. Follow-up recommendations for detected pulmonary nodules are based at a minimum on nodule size and pa tient risk factors according to Fleischner Society Guidelines. FINDINGS: PULMONARY ARTERIES: No filling defects are seen in the pulmonary arteries through the segmental level. LUNGS: Subsegmental volume loss in the right lower lung adjacent to large pleural effusion. Minimal atelect asis at the left base. PLEURAE: Large bilateral pleural effusions, right greater than left with right effusion measuring 7.5 cm. Siz e is similar to prior CT in October 2016. MEDIASTINUM: There is good visualization of the great vessels of the middle mediastinum. No evidence of mediastin al or hilar adenopathy/mass. CONCLUSION: 1. The study is negative for pulmonary embolism. 2. Large bilateral pleural effusions, similar to CT 10/06/16. 3. 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 Eagle Martinez MD on September 28, 2017 at 20:46 Board Certified Radiologist. This report was verified electronically.
[2017-09-28] MEDS ORDERED: ASPIRIN 81 MG CHEW TAB CHEW ONE (21:15)
[2017-09-28 22:26] VITALS: O2SAT 98
[2017-09-28 23:33] LABS: CREATINE KINASE 40 U/L (39-308)
[2017-09-29] VITALS (11 sets, daily range): BP systolic 127–170; BP diastolic 62–72; PULSE 54–74; RESP 16–18; TEMP 96.7–98.7; O2SAT 91–98
[2017-09-29 01:56] LABS: CREATINE KINASE 19 U/L (39-308)
--- NOTE | 2017-09-29 09:26 | PD.CARD.PN ---
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 HE PRESENTED TO THE ED BECAUSE HIS LEGS WERE SWELLING MORE AND HE HAD SOME FLUTTERING IN HIS CHEST. HE HAS KNOWN CAD WITH A NON STEMI IN THE PAST. HE HAS R/O FOR ACS AND CANNOT BE EVALUATED WITH EITHER NUCLEAR OR TREADMILL STRESS. HE DOES NOT FEEL HE CAN MANAGE AT HOME ANY LONGER HE NEEDS ADMISSION FOR FURTHER EVALUATION, POSSIBLE REMOVAL OF FLUID FROM LUNGS AND RE EVALUATION OF GENERAL STATUS. HE HAS BEEN SEEN BY PALLIATIVE CARE PREVIOUSLY. Objective Vital Signs / I&O Vital Signs Date Time Temp Pulse Resp B/P (MAP) Pulse Ox O2 Delivery O2 Flow Rate FiO2 09/29/17 07:09 98.0 61 16 156/68 (97) 92 09/29/17 07:00 54 09/29/17 04:00 96.7 58 18 127/62 (83) 93 09/29/17 00:19 98.1 57 17 145/67 (93) 98 09/28/17 22:26 98 09/28/17 18:15 62 19 155/67 (96) 95 Room Air 09/28/17 16:34 62 12 99 Room Air 09/28/17 16:06 98.0 63 16 135/69 (91) 97 I/O 09/28/17 09/28/17 09/28/17 09/29/17 09/29/17 09/29/17 07:00 15:00 23:00 07:00 15:00 23:00 Output Total 325 ml Balance -325 ml Output Urine Total 325 ml # Voids 6 Physical Exam 4+ PITTING EDEMA BILATERAL LARGE PLEURAL EFFUSIONS 4 BEAT RUN OF [place] Laboratory Laboratory Tests Test 09/28/17 16:40 09/28/17 18:17 09/28/17 22:16 09/29/17 01:15 White Blood Count 5.9 TH/MM3 Red Blood Count 3.49 MIL/MM3 Hemoglobin 9.9 GM/DL Hematocrit 30.2 % Mean Corpuscular Volume 86.6 FL Mean Corpuscular Hemoglobin 28.5 PG Mean Corpuscular Hemoglobin Concent 32.9 % Red Cell Distribution Width 17.8 % Platelet Count 90 TH/MM3 Mean Platelet Volume 8.9 FL Neutrophils (%) (Auto) 71.3 % Lymphocytes (%) (Auto) 22.9 % Monocytes (%) (Auto) 3.8 % Eosinophils (%) (Auto) 1.2 % Basophils (%) (Auto) 0.8 % Neutrophils # (Auto) 4.2 TH/MM3 Lymphocytes # (Auto) 1.3 TH/MM3 Monocytes # (Auto) 0.2 TH/MM3 Eosinophils # (Auto) 0.1 TH/MM3 Basophils # (Auto) 0.0 TH/MM3 CBC Comment AUTO DIFF Differential Comment AUTO DIFF CONFIRMED Platelet Estimate LOW Platelet Morphology Comment NORMAL Ovalocytes 1+ Acanthocytes OCC Keratocytes OCC Prothrombin Time 12.2 SEC Prothromb Time International Ratio 1.1 RATIO Activated Partial Thromboplast Time 24.7 SEC Blood Urea Nitrogen 40 MG/DL Creatinine 1.30 MG/DL Random Glucose 126 MG/DL Total Protein 5.4 GM/DL Albumin 2.3 GM/DL Calcium Level 7.3 MG/DL Alkaline Phosphatase 85 U/L Aspartate Amino Transf (AST/SGOT) 40 U/L Alanine Aminotransferase (ALT/SGPT) 21 U/L Total Bilirubin 0.8 MG/DL Sodium Level 140 MEQ/L Potassium Level 4.0 MEQ/L Chloride Level 108 MEQ/L Carbon Dioxide Level 25.0 MEQ/L Anion Gap 7 MEQ/L Estimat Glomerular Filtration Rate 53 ML/MIN Protein Corrected Calcium 8.2 MG/DL Total Creatine Kinase 47 U/L 40 U/L 19 U/L Troponin I LESS THAN 0.02 NG/ML LESS THAN 0.02 NG/ML LESS THAN 0.02 NG/ML B-Type Natriuretic Peptide 171 PG/ML Urine Color YELLOW Urine Turbidity CLEAR Urine pH 5.0 Urine Specific [place] 1.012 Urine Protein TRACE mg/dL Urine Glucose (UA) NEG mg/dL Urine Ketones NEG mg/dL Urine Occult Blood MOD Urine Nitrite NEG Urine Bilirubin NEG Urine Urobilinogen LESS THAN 2.0 MG/DL Urine Leukocyte Esterase NEG Urine RBC 3 /hpf Urine WBC 1 /hpf Urine Hyaline Casts 6 /lpf Microscopic Urinalysis Comment CULT NOT INDICATED Imaging Last [address] Angiography 09/28/17 1721 Signed Impressions: Service Date/Time: Thursday, September 28, 2017 20:04 - CONCLUSION: 1. The study is negative for pulmonary embolism. 2. Large bilateral pleural effusions, similar to CT 10/06/16. 3. 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 Eagle Martinez MD Chest X-Ray 09/28/17 1636 Signed Impressions: Service Date/Time: Thursday, September 28, 2017 16:45 - CONCLUSION: 1. Small right pleural effusion which is mildly increased from the prior study. 2. Patchy opacity at the right lung base. MD Pratima Miles Donald J. MD Sep 29, 2017 09:26
--- NOTE | 2017-09-29 10:37 | HHI.HP ---
HPI Primary Care Physician Unknown Chief Complaint Fluttering in chest yesterday History of Present Illness 82 year-old elderly frail thin male with multiple medical problems to include CLL w/ anemia, Lymphocytosis, splenomegaly, Matti's granulomatosis, chronic bilateral pleural effusions, thrombocytopenia, Mild to moderate CAD, Mild to Moderate Aortic Stenosis, Colon Cancer s/p resection/ostomy reversal w/ chemo/radiation, DVT/PE, Hernia repair and multiple Thoracentesis secondary to Pleural effusions. He presented to ER yesterday afternoon with c/o intermittent "fluttering" in chest with mild lightheadedness. He denies associated chest pain/pressure or near syncope. He has chronic fatigue and generalized weakness which he feels is overall unchanged. He denies any fluttering/palpitations today. He has chronic dyspnea and leg edema, both of which he cannot discern if there is significant change this week. He follows with Oncology Dr. zE Maria and began chemo this week with treatment on 09/26 and 09/[address] Maria's note with Rituxan and Bendamustine. His pot annealer is Dr. Retana but he is unsure of his last visit. Last Cardiac Cath 09/23/16 for NSTEMI with mild to moderate CAD, Normal EF 65% with medical management recommended. 07/30/17 2D echo with mild to moderate , EF 60-65% with normal systolic function and diastolic function. (Shasha Madden [facility]) History of Present Illness The pt said he needed the fluid drained from his lungs. He said he had some chest fluttering. He said that he had some abdominal pain. He last saw his pot annealer a few weeks ago. He says his legs have become more swollen. He is currently on chemo. Flight Engineer Inspector at the bedside. Discussed with nursing. (Bryn Greenwood DO) Review of Systems ROS Limitations: Poor Historian (Able to answer some questions but has some difficultly with memory) Consitutional: COMPLAINS OF: Fatigue HEENT: COMPLAINS OF: Lightheadedness Respiratory: COMPLAINS OF: Shortness of breath Cardiovascular: COMPLAINS OF: Palpitations Genitourinary: COMPLAINS OF: Urinary incontinence (at times. Today urinating in bedside urinal with assistance only) Generalized weakness and malaise, chronic. BLE edema chronic (Shasha Madden) Past Family Social History Allergies: Coded Allergies: No Known Allergies (Verified , 08/07/17) Past Medical History As listed in HPI with addition of Cataract surgery, Non alcoholic cirrhosis, GERD, CVA Past Surgical History As listed above Reported Medications Reported Meds & Active Scripts Active Prednisone 2.5 Mg Tab 2.5 Mg PO BID Furosemide 40 Mg Tab 40 Mg PO DAILY Reported Coreg (Carvedilol) 3.125 Mg Tab 3.125 Mg PO BID Family History As per previous in EHR Social History No Tobacco No Illicit Drug Use Social ETOH with occasional glass of wine (Shasha Madden BEVEL GEAR GENERATOR OPERATOR) Active Ordered Medications Current Medications Medications (Trade) Dose Ordered Sig/Chantel Route Start Time Stop Time Status Last Admin (Lasix) 40 mg DAILY PO 09/29/17 11:45 09/29/17 11:58 (Deltasone) 2.5 mg BID PO 09/29/17 21:00 (NS Flush) 2 ml UNSCH PRN IV FLUSH 09/29/17 11:45 (NS Flush) 2 ml BID IV FLUSH 09/29/17 21:00 (Zofran Inj) 4 mg Q6H PRN IV PUSH 09/29/17 11:45 (Nitrostat Sl) 0.4 mg Q5M PRN SL 09/29/17 11:45 (Pill Splitter) 1 ea UNSCH PRN OTHER 09/29/17 21:00 (Coreg) 3.125 mg BID PO 09/29/17 21:00 (Bryn Greenwood DO) Physical Exam Vital Signs Vital Signs Date Time Temp Pulse Resp B/P (MAP) Pulse Ox O2 Delivery O2 Flow Rate FiO2 09/29/17 07:09 98.0 61 16 156/68 (97) 92 09/29/17 07:00 54 09/29/17 04:00 96.7 58 18 127/62 (83) 93 09/29/17 00:19 98.1 57 17 145/67 (93) 98 09/28/17 22:26 98 09/28/17 18:15 62 19 155/67 (96) 95 Room Air 09/28/17 16:34 62 12 99 Room Air 09/28/17 16:06 98.0 63 16 135/69 (91) 97 Physical Exam General: 82 y.o thin frail elderly male lying quietly in bed with eyes closed. Awakens by command. Alert but drowsy. Able to answer general questions with very slow responses. Skin: Warm and Dry HEENT: Normocephalic Atraumatic. Pupils equal and round with glasses on. Non icteric, no injection or drainage. Mucous membranes with tongue mildly dry. Trachea midline. No JVD Cardiovascular: S1 and S2 in regular rhythm bradycardic rate. No S3, S4, rub or gallop. Grade 2/6 systolic murmur loudest RUSB and LUSB. Respiratory: No accessory muscle use. Clear to auscultation upper lobes. Diminished on bases bilaterally worse on right base. No wheezes, rhonchi. GI: abdomen soft and flat. Normoactive bowel sounds. No tenderness. Musculoskeletal: No clubbing, cyanosis or obvious deformities. Bilateral lower extremity edema 2+ feet/ankles and 1+ knees. Neuro: Arouses easily and alert. No obvious cranial nerve deficits. Lying in bed and able to slowly move all extremities slowly. Gait is not observed. Speech is clear but soft and talks slowly. Psychiatric: Pleasant, mildly flat depressed affect. Insight and judgement appear normal Laboratory Laboratory Tests Test 09/28/17 16:40 09/28/17 18:17 09/28/17 22:16 09/29/17 01:15 White Blood Count 5.9 Red Blood Count 3.49 Hemoglobin 9.9 Hematocrit 30.2 Mean Corpuscular Volume 86.6 Mean Corpuscular Hemoglobin 28.5 Mean Corpuscular Hemoglobin Concent 32.9 Red Cell Distribution Width 17.8 Platelet Count 90 Mean Platelet Volume 8.9 Neutrophils (%) (Auto) 71.3 Lymphocytes (%) (Auto) 22.9 Monocytes (%) (Auto) 3.8 Eosinophils (%) (Auto) 1.2 Basophils (%) (Auto) 0.8 Neutrophils # (Auto) 4.2 Lymphocytes # (Auto) 1.3 Monocytes # (Auto) 0.2 Eosinophils # (Auto) 0.1 Basophils # (Auto) 0.0 CBC Comment AUTO DIFF Differential Comment AUTO DIFF CONFIRMED Platelet Estimate LOW Platelet Morphology Comment NORMAL Ovalocytes 1+ Acanthocytes OCC Keratocytes OCC Prothrombin Time 12.2 Prothromb Time International Ratio 1.1 Activated Partial Thromboplast Time 24.7 Blood Urea Nitrogen 40 Creatinine 1.30 Random Glucose 126 Total Protein 5.4 Albumin 2.3 Calcium Level 7.3 Alkaline Phosphatase 85 Aspartate Amino Transf (AST/SGOT) 40 Alanine Aminotransferase (ALT/SGPT) 21 Total Bilirubin 0.8 Sodium Level 140 Potassium Level 4.0 Chloride Level 108 Carbon Dioxide Level 25.0 Anion Gap 7 Estimat Glomerular Filtration Rate 53 Protein Corrected Calcium 8.2 Total Creatine Kinase 47 40 19 Troponin I LESS THAN 0.02 LESS THAN 0.02 LESS THAN 0.02 B-Type Natriuretic Peptide 171 Urine Color YELLOW Urine Turbidity CLEAR Urine pH 5.0 Urine Specific [place] 1.012 Urine Protein TRACE Urine Glucose (UA) NEG Urine Ketones NEG Urine Occult Blood MOD Urine Nitrite NEG Urine Bilirubin NEG Urine Urobilinogen LESS THAN 2.0 Urine Leukocyte Esterase NEG Urine RBC 3 Urine WBC 1 Urine Hyaline Casts 6 Microscopic Urinalysis Comment CULT NOT INDICATED Date/Time Source Procedure Growth Status 09/28/17 16:55 Blood Peripheral Aerobic Blood Culture Pending Received 09/28/17 16:55 Blood Peripheral Anaerobic Blood Culture Pending Received 09/28/17 16:55 Nasal Washing Influenza Types A,B Antigen (LAURIE) - Final NEGATIVE FOR FLU A AND B ANTIGEN.... Complete (Shasha Madden BEVEL GEAR GENERATOR OPERATOR) Physical Exam Resting comfortably NC, AT Systolic murmur appreciated Diminished breath sounds Tender to palpation in the epigastric area 3+ pitting LE edema Mood and affect appropriate (Bryn Greenwood DO) Result Diagram: 09/28/17 1640 09/28/17 1640 Imaging Last [address] Angiography 09/28/17 1721 Signed Impressions: Service Date/Time: Thursday, September 28, 2017 20:04 - CONCLUSION: 1. The study is negative for pulmonary embolism. 2. Large bilateral pleural effusions, similar to CT 10/06/16. 3. 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 Eagle Martinez MD Chest X-Ray 09/28/17 1636 Signed Impressions: Service Date/Time: Thursday, September 28, 2017 16:45 - CONCLUSION: 1. Small right pleural effusion which is mildly increased from the prior study. 2. Patchy opacity at the right lung base. Bryn Adamson MD Course Patient has R/O for ACS with 3 sets of negative cardiac enzymes and EKGs. potline monitor with event 0850:04 with 4 beat run of wide tachycardia 130- 140s. Also with 0850:11 Sinus Bradycardia rate 49 (BB was not administered last evening or this AM) Chronic anemia and thrombocytopenia as prior consistent with his history Bilateral Large pleural effusions similar to prior study. (Shasha Madden) Caprini VTE Risk Assessment Caprini Risk Assessment Model Point Value = 1 Point Value = 2 Point Value = 3 Point Value = 5 Age 41-60 Minor surgery BMI > 25 kg/m2 Swollen legs Varicose veins or History of unexplained or recurrent spontaneous Oral contraceptives or hormone replacement Sepsis (< 1 month) Serious lung disease, including pneumonia (< 1 month) Abnormal pulmonary function Acute myocardial infarction Congestive heart failure (< 1 month) History of inflammatory bowel disease Medical patient at bed rest Age 61-74 Arthroscopic surgery Major open surgery (> 45 min) Laparoscopic surgery (> 45 min) Malignancy Confined to bed (> 72 hours) Immobilizing plaster cast Central venous access Age >= 75 History of VTE Family history of VTE Factor V Leiden Prothrombin 12845D Lupus anticoagulant Anticardiolipin antibodies Elevated serum homocysteine Heparin-induced thrombocytopenia Other congenital or acquired thrombophilia Stroke (< 1 month) Elective arthroplasty Hip, pelvis, or leg fracture Acute spinal cord injury (< 1 month) Prophylaxis Regimen Total Risk Factor Score Risk Level Prophylaxis Regimen 0-1 Low Early ambulation 2 Moderate Order ONE of the following: *Sequential Compression Device (SCD) *Heparin 5000 units SQ BID 3-4 Higher Order ONE of the following medications: *Heparin 5000 units SQ TID *Enoxaparin/Lovenox 40 mg SQ daily (WT < 150 kg, CrCl > 30 mL/min) *Enoxaparin/Lovenox 30 mg SQ daily (WT < 150 kg, CrCl > 10-29 mL/min) *Enoxaparin/Lovenox 30 mg SQ BID (WT < 150 kg, CrCl > 30 mL/min) AND/OR *Sequential Compression Device (SCD) 5 or more Highest Order ONE of the following medications: *Heparin 5000 units SQ TID (Preferred with Epidurals) *Enoxaparin/Lovenox 40 mg SQ daily (WT < 150 kg, CrCl > 30 mL/min) *Enoxaparin/Lovenox 30 mg SQ daily (WT < 150 kg, CrCl > 10-29 mL/min) *Enoxaparin/Lovenox 30 mg SQ BID (WT < 150 kg, CrCl > 30 mL/min) AND *Sequential Compression Device (SCD) (Shasha Madden) Caprini VTE Risk Assessment: Mod/High Risk (score >= 2) (Bryn Greenwood DO) Assessment and Plan Assessment and Plan Intermittent Palpitations, chronic dyspnea with large pleural effusions, Chronic Leg edema: Tele as above events and continued monitoring. Seen and evaluated by Dr. Andujar (cardiology) in [facility]. No stress test recommended. Recommend admission to [facility] service for further medical management and likely admission. Will leave any recommendations for Speciality consults to their discretion. BB is held. Discussed above with Dr. Greenwood. (Shasha Madden) Assessment and Plan Pleural effusions: chronic- will have pulmonology see pt. Continue diuresis Acute on chronic CHF: the pt is fluid overloaded- continue Lasix 20 mg IV BID. Cardiology consult requested. Palpitations: 4 beat run of V tach reported- resume Coreg with holding parameters. Telemetry. Cardiac eval. Chemotherapy: Followed by Dr. Maria- consult oncology as needed. Discussed Condition With The exam, history, and the medical decision-making described in the above note were completed with the assistance of the mid-level provider. I reviewed and agree with the findings presented. I attest that I had a [id number] encounter with the patient on the same day, and personally performed and documented my assessment and findings in the medical record. (Bryn Greenwood DO) Shasha Madden Sep 29, 2017 10:37 Bryn Greenwood DO Sep 29, 2017 14:55
[2017-09-29] MEDS ORDERED: ONDANSETRON HCL 4 MG/2 ML VIAL IV PUSH PRN (11:45)
[2017-09-29] MEDS ORDERED: SODIUM CHLORIDE 0.9% FLUSH 10 ML FLUSH IV FLUSH PRN (11:45)
[2017-09-29] MEDS ORDERED: FUROSEMIDE 40 MG TAB PO SCH (11:45)
[2017-09-29] MEDS ORDERED: NITROGLYCERIN 0.4 MG SL 25 TABS/BTL SL PRN (11:45)
--- NOTE | 2017-09-29 14:54 | EKG ---
Date Performed: 09/29/2017 Time Performed: 01:10:06 PTAGE: 82 years EKG: SINUS BRADYCARDIA BORDERLINE ECG NO CHANGES PREVIOUS TRACING : 09/28/2017 22.26 DOCTOR: Chalo Andujar Interpretating Date/Time 09/29/2017 14:52:43
--- NOTE | 2017-09-29 14:55 | EKG ---
Date Performed: 09/28/2017 Time Performed: 22:26:00 PTAGE: 82 years EKG: SINUS BRADYCARDIA LOW QRS VOLTAGE IN EXTREMITY LEADS BORDERLINE ECG NO SIG CHANGES PREVIOUS TRACING : 09/28/2017 17.06 DOCTOR: Chalo Andujar Interpretating Date/Time 09/29/2017 14:54:02
--- NOTE | 2017-09-29 15:13 | EKG ---
Date Performed: 09/28/2017 Time Performed: 17:06:17 PTAGE: 82 years EKG: SINUS BRADYCARDIA WITH OCCASIONAL SUPRAVENTRICULAR PREMATURE COMPLEXES LOW QRS VOLTAGE IN E XTREMITY LEADS BORDERLINE ECG NO SIG CHANGE PREVIOUS TRACING : 07/11/2017 16.12 DOCTOR: Chalo Andujar Interpretating Date/Time 09/29/2017 15:11:20
[2017-09-29] MEDS: FUROSEMIDE 20 MG/2 ML VIAL IV PUSH SCH (17:41)
--- NOTE | 2017-09-29 17:53 | MB ---
cc: BRYN CURRY R. STEVEN ANEJA, ARJUN DATE OF CONSULTATION: 09/29/2017. REASON FOR CONSULTATION: Evaluation for pleural effusion. REQUESTING PHYSICIAN: Dr. Bryn Curry. HISTORY OF PRESENT ILLNESS: Mr. Brewer is pleasant 82-year-old white male with history of CA of the colon status post resection, history of Matti's granulomatosis. He has neuroophthalmic involvement and he is on a low dose of Prednisone. He follows at [facility]. The patient lives with his publicity person and does ambulate much. He came to the hospital. He was having shortness of breath and had worsening swelling in his legs. He denies any excessive use of salt or the fluids he has been taking. The patient was evaluated in the hospital. His work up showed a white blood cell count of 5.9, hemoglobin 9.9, hematocrit 30.2, MCV 86, platelet count 90. His sodium was 140, potassium 4.0, chloride 109, carbon dioxide 25, BUN 40, creatinine 1.30. His CTA of the chest shows no pulmonary embolism. He has a large bilateral pleural effusion and large hiatal hernia. PAST MEDICAL HISTORY: His past medical history is significant for: 1. History of chronic lymphocytic leukemia. 2. CA of the colon status post resection. 3. He had a colostomy which was reversed. 4. Matti's granulomatosis. 5. Aortic stenosis. 6. Multiple pleural effusions. 7. History of coronary artery disease status post NSTEMI. 8. History of DVT and pulmonary embolism. 9. Cirrhosis of the liver. 10. Colon resection. 11. Hernia surgery. MEDICATIONS: He is currently takin. Prednisone 2.5 milligrams twice a day. 2. Coreg 3.125 milligrams a day. 3. Lasix 20 milligrams twice a day. 4. Nitro paste 0.4 milligrams PRN. ALLERGIES: NO KNOWN DRUG ALLERGIES. SOCIAL HISTORY: He denies any significant smoking or alcohol abuse. 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 He lives with his publicity person. FAMILY HISTORY: He is single, never , has no children. He has one sister who lives in [place]. REVIEW OF SYSTEMS: He denies any weight loss. No headache or dizziness. No seizure, stroke or epilepsy. PHYSICAL EXAMINATION: GENERAL: An elderly male weak, mild short of breath not in any acute distress. VITAL SIGNS: Blood pressure 170/72, heart rate 67, respirations 16, temperature 97.7. HEAD, EYES, EARS, NOSE, THROAT: Examination pupils are equal and reactive to light. Oral mucosa and nasal mucosa normal. NECK: The neck is supple. JVP not raised. CHEST: He has decreased breath sounds at the bases. CBC: S1 and S2 are normal. ABDOMEN: The abdomen is soft, nontender and nondistended. Bowel sounds are present. EXTREMITIES: 2+ pedal edema. INTERNATIONAL STUDENT ADVISOR: He is alert and oriented times three. No focal deficits. IMPRESSION: 1. Bilateral pleural effusions, right more than the left. He has recurrent pleural effusions. He had thoracentesis done in the past. 2. Worsening of his dyspnea and swelling in his legs. 3. History of chronic lymphocytic leukemia. 4. History of ca colon status post surgery. 5. History of Matti's granulomatosis. He has neuro-ophthalmic involvement. 6. Cirrhosis. PLAN: I discussed treatment with the patient. He will need thoracentesis Will consult IR for ultrasound-guided thoracentesis, mainly therapeutic. He has been studied before. The patient is being diuresed, stable on room air. The patient is known to Dr. Afshin Jones who will follow him tomorrow. Further treatment will depend on the course in the hospital. Thank you Dr. Bryn Curry for this consult. MD TRINIDAD Orozco/JCC /4:09 PM /5:35 PM ANNA
[2017-09-29] MEDS: predniSONE 5 MG TAB PO SCH (20:32)
[2017-09-29] MEDS: SODIUM CHLORIDE 0.9% FLUSH 10 ML FLUSH IV FLUSH SCH (20:32)
[2017-09-29] MEDS: CARVEDILOL 3.125 MG TAB PO SCH (20:32)
[2017-09-29] MEDS ORDERED: PILL SPLITTER OTHER PRN (21:00)
[2017-09-30] VITALS (15 sets, daily range): BP systolic 107–148; BP diastolic 59–76; PULSE 56–84; RESP 14–20; TEMP 97.4–98.4; O2SAT 93–97
[2017-09-30] MEDS: SODIUM CHLORIDE 0.9% FLUSH 10 ML FLUSH IV FLUSH SCH ×2 (08:54→22:26)
[2017-09-30] MEDS: predniSONE 5 MG TAB PO SCH ×2 (08:55→22:25)
[2017-09-30] MEDS: FUROSEMIDE 20 MG/2 ML VIAL IV PUSH SCH ×2 (08:55→15:17)
[2017-09-30] MEDS: CARVEDILOL 3.125 MG TAB PO SCH ×2 (08:55→22:25)
--- NOTE | 2017-09-30 10:00 | HHI.PR ---
Subjective Remarks At the margin of the bed. Had a BM. With sob, lightheadedness, and feels tired. No n/v/d/c. Denies chest pain/ palpitations/diaphoresis. Objective Vitals Vital Signs Date Time Temp Pulse Resp B/P (MAP) Pulse Ox O2 Delivery O2 Flow Rate FiO2 09/30/17 07:50 97.4 75 20 148/66 (93) 93 09/30/17 07:32 94 21 09/30/17 07:30 63 09/30/17 04:00 98.4 84 18 107/64 (78) 94 09/30/17 01:12 57 09/29/17 23:47 98.4 67 18 131/68 (89) 95 09/29/17 21:13 97 09/29/17 20:26 98.7 74 145/67 (93) 91 09/29/17 16:06 69 09/29/17 15:54 97.7 67 16 170/72 (104) 97 09/29/17 11:43 97.7 61 16 145/66 (92) 95 I/O 09/29/17 09/29/17 09/29/17 09/30/17 09/30/17 09/30/17 07:00 15:00 23:00 07:00 15:00 23:00 Intake Total 100 ml Output Total 325 ml 600 ml Balance -325 ml -500 ml Intake Oral 100 ml Output Urine Total 325 ml 600 ml # Voids 6 2 # Bowel Movements 5 Result Diagram: 09/28/17 1640 09/28/17 [address] Angiography 09/28/17 1721 Signed Impressions: Service Date/Time: Thursday, September 28, 2017 20:04 - CONCLUSION: 1. The study is negative for pulmonary embolism. 2. Large bilateral pleural effusions, similar to CT 10/06/16. 3. 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 Eagle Martinez MD Chest X-Ray 09/28/17 1636 Signed Impressions: Service Date/Time: Thursday, September 28, 2017 16:45 - CONCLUSION: 1. Small right pleural effusion which is mildly increased from the prior study. 2. Patchy opacity at the right lung base. Bryn Adamson MD Objective Remarks General: 82 y.o thin frail elderly male. More awake and alert, appears in distress 2/2 sob. Skin: Warm and Dry HEENT: Normocephalic Atraumatic. Pupils equal and round with glasses on. Non icteric, no injection or drainage. Mucous membranes with tongue mildly dry. Trachea midline. No JVD Cardiovascular: S1 and S2 in regular rhythm bradycardic rate. No S3, S4, rub or gallop. Grade 2/6 systolic murmur loudest RUSB and LUSB. Respiratory: No accessory muscle use. Clear to auscultation upper lobes. Diminished on bases bilaterally worse on right base. No wheezes, rhonchi. + nonproductive cough. GI: abdomen soft and flat. Normoactive bowel sounds. No tenderness. Musculoskeletal: No clubbing, cyanosis or obvious deformities. Bilateral lower extremity edema 2+ feet/ankles and 1+ knees. Neuro: Arouses easily and alert. No obvious cranial nerve deficits. Lying in bed and able to slowly move all extremities slowly. Gait is not observed. Speech is clear but soft and talks slowly. Psychiatric: Pleasant, mildly flat depressed affect. Insight and judgement appear normal A/P Assessment and Plan Intermittent Palpitations, chronic dyspnea with large pleural effusions, Chronic Leg edema: Tele as above events and continued monitoring. Seen and evaluated by Dr. Andujar (cardiology) in [facility]. No stress test recommended. Recommend admission to [facility] service for further medical management and likely admission. Will leave any recommendations for Speciality consults to their discretion. BB is held. Pleural effusions: chronic, Continue diuresis. Pulm consulted. Therapeutic thoracentesis 09/30/17 Acute on chronic CHFwith fluid overload, continue Lasix 20 mg IV bid . Cardiology consulted. Palpitations. Had 4 beat run of V tach . Resume Coreg with holding parameters. Monitor on telemetry. Also cardiology consulted. H/o CLL on chemotherapy, follows with Dr Pedroza oncology, consulted Consult palliative care for goals of care DVT ppx SCD/TEDs, lovenox Discussed with the patient,nurse. Freida Lorenzo MD Sep 30, 2017 10:00
--- NOTE | 2017-09-30 11:12 | PD.CONS ---
Consult Service Palliative Care Consult Requested By Dr. Lorenzo Primary Care Physician Unknown Reason for Consultation a. To assist with evaluation and management of symptoms including: fatigued , dyspnea, edema b. To assist medical decision maker(s) with: better understanding of current medical conditions; weighing benefits/burdens of medical treatment options; making medical treatment decisions. HPI History of Present Illness Pt is an 82 year old with a recurrent hx of t pleural effusion, colon cancer(s/ p colectomy and chemotherapy), CAD, hiatal hernia, hypertension, ME, CHF, Wojciech 's vasculitis. He had been seen by palliative care in the past in July. His reported patient has a total of 7 thoracentesis done over the past year. He has 2 for thoracentesis done in [place] previously as well, when he traveled there to [place] and stayed there for a few months. In his last 2 hospitalization patient came in for recurrent right pleural effusion. Patient was discharge on 07/26/2017 status post thoracentesis and was told to follow up as outpatient. Patient came back 3 days later resulting in current admission. Pt had been followed by pulmonology and oncology for his recurrent pleura effusion. Oncology at the time felt peripeheral smaear has features consistent with lymphoproliferative disorder. He however did not have B symptoms. At the time oncology was waiting for flow cytometry, etiology of recurrent pleural effusion remains unclear at the time. Goals of care at the time was: Pt designated Lucila Bowles ([phone]) & [phone] (she was a previous RN). Alternate Surrogate is Amador Bowles (Lucila's son) who is a physician. In addition he states Boni Harrell (case making machine operator) and Bhavani Rodriguez can be notified and be informed of his condition. He did not want intubation, but desire shock/compression/ acls. Pt was interested to continue workup for etiology for recurrent pleural effusion. Pt was discharge after pt was stabilized. Pt followed up with oncology, and flow cytology confirm diagnosis of CLL. Oncology in addition noted Wojciech's granulomatosis, recurrent pleural effusions , history of thrombocytopenia, anemia, splenomegaly, liver cirrohsis, esophageal varices with portal hypertension. Pt was treated with Rituxan, bendamustine. Risk of increasing fatigued, myelosuppression, anemia, thrombocytopenia, and leukopenia was explained. Pt presented to the ER 09/28/2017 for generalized malaise, bilateral lower ext edema and dyspna. Pt explained increase chest tightness in the last couple of days. Chest X ray show small right pleural effusion, and patchy opacity at the right lung base. CTA is negative for PE. Cardiology was consulted due to increase of lower ext edema, fluttering in his chest, and known hx of CAD. Cardiology workup and Troponin I was overall negative. EKG is bradycardia, low qrs voltage. No ST changes. Pulmonolgist consulted, and ordered an ultra sounded - guided thoracentesis, mainly therapeutic. Palliative Care reconsulted to review goals of care On my visit, Patient noted dyspnea on any exertion. Pt endorses generalized fatigued and low energy. All 3 issues have been happening for months, but worse since starting chemo. He needs help with dressing and assitance with adls Disccused code status, functional status level, and option of hospice. For now pt just a thoracentesis, and think about what to do next, weather to continue chemo or consider hospice. Function/Cognitive Trajectory Increase weakness, dyspnea, malaise, dependence on adls. Review of Systems ROS Limitations: Clinical Condition Constitutional: COMPLAINS OF: Fatigue Endocrine: DENIES: Heat/cold intolerance, Polydipsia, Polyuria Eyes: DENIES: Blurred vision, Diplopia, Eye inflammation Ears, nose, mouth, throat: DENIES: Tinnitus, Hearing loss, Vertigo Respiratory: COMPLAINS OF: Shortness of breath Cardiovascular: COMPLAINS OF: Dyspnea on Exertion, Lower Extremity Edema Gastrointestinal: DENIES: Abdominal pain, Constipation, Nausea, Vomiting Hematologic/Lymphatics: COMPLAINS OF: History of transfusions Neurologic: COMPLAINS OF: Poor Balance Psychiatric: DENIES: Depression, Agitation Past Family Social History Coded Allergies: No Known Allergies (Verified , 08/07/17) Past Medical History Recurrent pleural effusion Colon cancer Asbestosis exposure Willis granulomatosis.. Hypertension CHF CAD ME cirrohosis. varices portal hypertension. Past Surgical History Recurrent thoracentesis Colon surgery Inguinal hernia repair Reported Medications Carvedilol Lasix Prednisone Tylenol Zofran Milk of mag Bisacodyl Lactulose Current Medications Medications (Trade) Dose Ordered Sig/Chantel Route Start Time Stop Time Status Last Admin (Deltasone) 2.5 mg BID PO 09/29/17 21:00 09/30/17 08:55 (NS Flush) 2 ml UNSCH PRN IV FLUSH 09/29/17 11:45 (NS Flush) 2 ml BID IV FLUSH 09/29/17 21:00 09/30/17 08:54 (Zofran Inj) 4 mg Q6H PRN IV PUSH 09/29/17 11:45 (Nitrostat Sl) 0.4 mg Q5M PRN SL 09/29/17 11:45 (Pill Splitter) 1 ea UNSCH PRN OTHER 09/29/17 21:00 (Coreg) 3.125 mg BID PO 09/29/17 21:00 09/30/17 08:55 (Lasix Inj) 20 mg BID@,18 IV PUSH 09/29/17 18:00 09/30/17 08:55 Family History Mother, sister-breast cancer Father-stomach ulcers Sister-thyroid disease Substance Use Tobacco: Secondhand smoke exposure, smoked for a few years during patient's 20s Alcohol: None Prescription med abuse: None Illicits: None Psychosocial History Originally from [facility]. Patient owned restaurants. He is not , and has no children. Has 2 sisters, and 2 nephews (who are physicians). Spiritual/Cultural Factors [facility] Surrogate: Copy in medical record Physical Exam Vital Signs Date Time Temp Pulse Resp B/P (MAP) Pulse Ox O2 Delivery O2 Flow Rate FiO2 09/30/17 07:50 97.4 75 20 148/66 (93) 93 09/30/17 07:32 94 21 09/30/17 07:30 63 09/30/17 04:00 98.4 84 18 107/64 (78) 94 09/30/17 01:12 57 09/29/17 23:47 98.4 67 18 131/68 (89) 95 09/29/17 21:13 97 09/29/17 20:26 98.7 74 145/67 (93) 91 09/29/17 16:06 69 09/29/17 15:54 97.7 67 16 170/72 (104) 97 09/29/17 11:43 97.7 61 16 145/66 (92) 95 Exam CONSTITUTIONAL/GENERAL: This is an adequately nourished patient, in no apparent distress, but fatigued SKIN: No jaundice, rashes, or lesions. Ecchymoses on upper extremities. No wounds seen anteriorly. Skin temperature appropriate. Not diaphoretic. HEAD: Atraumatic. Normocephalic. EYES: Pupils equal and round and reactive. Extraocular motions intact. No scleral icterus. No injection or drainage. Fundi not examined. ENT: Hearing grossly normal. Nose without bleeding or purulent drainage. Throat without visible erythema, exudates, masses, or lesions. NECK: Trachea midline. Supple, nontender. No palpable thyroid enlargement or nodularity. CARDIOVASCULAR: Regular rate and rhythm without murmurs, gallops, or rubs. No JVD. Peripheral pulses symmetric. RESPIRATORY/CHEST: Symmetric, unlabored respirations. On 2 L. faint rhonchi. GASTROINTESTINAL: Abdomen soft, non-tender, nondistended. No hepato-splenomegaly , or palpable masses. No guarding. Bowel sounds present. GENITOURINARY: Without palpable bladder distension. Rosas catheter in place. MUSCULOSKELETAL:2+ edema of the lower ext LYMPHATICS: No palpable cervical or supraclavicular adenopathy. NEUROLOGICAL: Awake and alert. Motor and sensory grossly within normal limits. Follows commands. Cognitively sharp. Moves all extremities. PSYCHIATRIC: No obvious anxiety/depression. no apparent hallucinations or other psychotic thought process. Diagnostic Tests Laboratory Laboratory Tests Test 09/28/17 16:40 09/28/17 18:17 09/28/17 22:16 09/29/17 01:15 White Blood Count 5.9 TH/MM3 (4.0-11.0) Red Blood Count 3.49 MIL/MM3 (4.50-5.90) Hemoglobin 9.9 GM/DL (13.0-17.0) Hematocrit 30.2 % (39.0-51.0) Mean Corpuscular Volume 86.6 FL (80.0-100.0) Mean Corpuscular Hemoglobin 28.5 PG (27.0-34.0) Mean Corpuscular Hemoglobin Concent 32.9 % (32.0-36.0) Red Cell Distribution Width 17.8 % (11.6-17.2) Platelet Count 90 TH/MM3 (150-450) Mean Platelet Volume 8.9 FL (7.0-11.0) Neutrophils (%) (Auto) 71.3 % (16.0-70.0) Lymphocytes (%) (Auto) 22.9 % (9.0-44.0) Monocytes (%) (Auto) 3.8 % (0.0-8.0) Eosinophils (%) (Auto) 1.2 % (0.0-4.0) Basophils (%) (Auto) 0.8 % (0.0-2.0) Neutrophils # (Auto) 4.2 TH/MM3 (1.8-7.7) Lymphocytes # (Auto) 1.3 TH/MM3 (1.0-4.8) Monocytes # (Auto) 0.2 TH/MM3 (0-0.9) Eosinophils # (Auto) 0.1 TH/MM3 (0-0.4) Basophils # (Auto) 0.0 TH/MM3 (0-0.2) CBC Comment AUTO DIFF Differential Comment AUTO DIFF CONFIRMED Platelet Estimate LOW (NORMAL) Platelet Morphology Comment NORMAL (NORMAL) Ovalocytes 1+ (NORMAL) Acanthocytes OCC (NORMAL) Keratocytes OCC (NORMAL) Prothrombin Time 12.2 SEC (9.8-11.6) Prothromb Time International Ratio 1.1 RATIO Activated Partial Thromboplast Time 24.7 SEC (24.3-30.1) Blood Urea Nitrogen 40 MG/DL (7-18) Creatinine 1.30 MG/DL (0.60-1.30) Random Glucose 126 MG/DL (74-106) Total Protein 5.4 GM/DL (6.4-8.2) Albumin 2.3 GM/DL (3.4-5.0) Calcium Level 7.3 MG/DL (8.5-10.1) Alkaline Phosphatase 85 U/L (45-117) Aspartate Amino Transf (AST/SGOT) 40 U/L (15-37) Alanine Aminotransferase (ALT/SGPT) 21 U/L (12-78) Total Bilirubin 0.8 MG/DL (0.2-1.0) Sodium Level 140 MEQ/L (136-145) Potassium Level 4.0 MEQ/L (3.5-5.1) Chloride Level 108 MEQ/L (98-107) Carbon Dioxide Level 25.0 MEQ/L (21.0-32.0) Anion Gap 7 MEQ/L (5-15) Estimat Glomerular Filtration Rate 53 ML/MIN (>89) Protein Corrected Calcium 8.2 MG/DL (8.5-10.1) Total Creatine Kinase 47 U/L (39-308) 40 U/L (39-308) 19 U/L (39-308) Troponin I LESS THAN 0.02 NG/ML LESS THAN 0.02 NG/ML LESS THAN 0.02 NG/ML B-Type Natriuretic Peptide 171 PG/ML (0-100) Urine Color YELLOW (YELLW/STRAW) Urine Turbidity CLEAR (CLEAR) Urine pH 5.0 (5.0-8.5) Urine Specific [place] 1.012 (1.002-1.035) Urine Protein TRACE mg/dL (NEG-TRACE) Urine Glucose (UA) NEG mg/dL (NEG) Urine Ketones NEG mg/dL (NEG) Urine Occult Blood MOD (NEG) Urine Nitrite NEG (NEG) Urine Bilirubin NEG (NEG) Urine Urobilinogen LESS THAN 2.0 MG/DL (LESS Urine Leukocyte Esterase NEG (NEG) Urine RBC 3 /hpf (0-3) Urine WBC 1 /hpf (0-5) Urine Hyaline Casts 6 /lpf (RARE) Microscopic Urinalysis Comment CULT NOT INDICATED Result Diagram: 09/28/17 1640 09/28/17 1640 Microbiology Microbiology Date/Time Source Procedure Growth Status 09/28/17 16:55 Blood Peripheral Aerobic Blood Culture - Preliminary NO GROWTH IN 1 DAY Resulted 09/28/17 16:55 Blood Peripheral Anaerobic Blood Culture - Preliminary NO GROWTH IN 1 DAY Resulted 09/28/17 16:40 Blood Peripheral Aerobic Blood Culture - Preliminary NO GROWTH IN 1 DAY Resulted 09/28/17 16:40 Blood Peripheral Anaerobic Blood Culture - Preliminary NO GROWTH IN 1 DAY Resulted 09/28/17 16:55 Nasal Washing Influenza Types A,B Antigen (LAURIE) - Final NEGATIVE FOR FLU A AND B ANTIGEN.... Complete Imaging Last Impressions CT Angiography 09/28/17 1721 Signed Impressions: Service Date/Time: Thursday, September 28, 2017 20:04 - CONCLUSION: 1. The study is negative for pulmonary embolism. 2. Large bilateral pleural effusions, similar to CT 10/06/16. 3. 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 Eagle Martinez MD Chest X-Ray 09/28/17 1636 Signed Impressions: Service Date/Time: Thursday, September 28, 2017 16:45 - CONCLUSION: 1. Small right pleural effusion which is mildly increased from the prior study. 2. Patchy opacity at the right lung base. Bryn Adamson MD Patient/Family Conference Present at Family Conference: patient and Boni Harrell (case making machine operator) Family Conference Location: Bedside Issues Discussed: * Palliative care role, purpose, approach * Additional medical, psychosocial, and spiritual history * Patients general health, functional status, and cognitive changes in the months leading up to the current hospitalization * Patient understanding of the current medical problems * Patient understanding of prognosis * Patients goals of care as best understood from advance directives and/or conversations and/or values * Current medical treatment options and benefits/burdens of those options * Likely scenarios comparing ongoing aggressive care with a transition to comfort measures only * Questions answered to the best of my ability * Palliative care contact information provided Assessment and Plan Disease Oriented Problem List: (1) CLL (chronic lymphocytic leukemia) (2) Central hearing loss (3) Physical deconditioning (4) Hx of non-ST elevation myocardial infarction (NSTEMI) (5) Matti-like granulomatosis (6) Cirrhosis of liver (7) Hypersplenism (8) Anemia Symptom Scale: (1) Fatigue 0-10 Scale: 10 Pertinent Non-Medical Issues Psychosocial:lives at home with case making machine operator. No children. Spiritual:zoroastrian Legal: Health Care Surrogate form scanned in to EMR Ethical issues impacting care: None Important Contacts Pt designated surrogate Lucila Bowles ([phone] (cell) & [phone] ( she was a previous RN). Alternate Surrogate is Amador Bowles (Lucila's son) who is a physician. In addition he states Boni Harrell (case making machine operator) and Bhavani Rodriguez can be notified and be informed of his condition. Prognosis CLL, recurrent pleural effusion, multiple comorbidities. Would be appropriate for hospice if goals of care is comfort oriented. Code Status: Alternative Code Plan == capacity- has capacity == code: Alternative: no intubation. but yes to compression, shock, acls drugs. == goals of care: For the time being pt would like to have thoracentesis, and wait for oncology follow up. It may be beneficial for him to get a drain, as he keeps having recurrent pleural effusion. I did say that given his worsening functioning status, and intolerance to treatment, I suspect he will continue to decline. Offer him option to focus on comfort measures only with hospice. He state he will think about it. Questions he has for oncology is if there are any alternative chemo? He is amenable for me to follow up tomorrow. I reveiw cpr and code status again, and he think about it. == fatigue is multifactorial- cancer burden, multiple comorbidities. Unlikely will improve. == palliative care will f/u Thank you for the opportunity to participate in the care of Mr. Brewer. Attestation To help prompt me to consider important information that might be impacting today's encounter and assessment, information from prior notes written by myself or my colleagues may have been "brought forward" into today's note. My signature on this note, however, is an attestation that I personally performed the exam, history, and/or decision-making noted today, and, unless otherwise indicated, the interactions with patient, family, and staff as well as the review of records all occurred today. I also attest that the listed assessment and stated plan reflect my best clinical judgment today based on the combination of historical information, prior notes, and today's exam/ interactions. When time spent is documented, it refers only to time spent today by the signer, or if indicated, combined time spent today by collaborating physician/nurse practitioner. Benjie Camara MD Sep 30, 2017 11:12
--- NOTE | 2017-09-30 13:51 | RADRPT ---
EXAM DATE/TIME: 09/30/2017 13:33 [facility] COMPARISON: CHEST EXPIRATION ONLY, July 26, 2017, 11:54. INDICATIONS : Stat post thoracentesis right side. MEDICAL HISTORY : Cardiovascular disease. Congestive heart failure. Hypertension. colorectal cancer. SURGICAL HISTORY : Colon resection. cardiac cath. ENCOUNTER: Initial ACUITY: 2 days PAIN SCORE: 0/10 LOCATION: Right chest FINDINGS: There is no pneumothorax on the right. Persistent consolidations remain on the left. The heart remains enlarged. CONCLUSION: Negative for right pneumothorax. Afshin Shin MD FACR on September 30, 2017 at 13:48 Board Certified Radiologist. This report was verified electronically.
[2017-09-30] MEDS ORDERED: ACETAMINOPHEN 325 MG TAB PO ONE (14:45)
--- NOTE | 2017-09-30 15:26 | RADRPT ---
EXAM DATE/TIME: 09/30/2017 13:02 [place] COMPARISON: EXTERNAL COMPARISON: US GUIDED THORACENTESIS RIGHT, July 26, 2017, 11:22[facility]/O [facility], Sandra sandoval 2016. INDICATIONS : Pleural effusion. MEDICAL HISTORY : Carcinoma, colon. Matti's disease. Shingles. Carcinoma, skin. Heart attack. Non-alcoholic cirrhosis . SURGICAL HISTORY : Cardiac catheterization. Colectomy. Thoracentesis. ENCOUNTER: Sequela ACUITY: 1 day PAIN SCORE: 0/10 LOCATION: Right chest FLUID: Total volume of 850 cc of cloudy, yellow fluid was removed. Fluid was discarded. Thoracentesis was therapeutic only. TECHNIQUE: 1. Ultrasound guidance for thoracentesis. 2. Thoracentesis. The risks, benefits, and alternatives to ultrasound guided thoracentesis were explained to the patien t in lay simple terms, including the risk of bleeding and infection. Written and verbal informed con sent was obtained. Appropriate area for thoracentesis was marked under ultrasound guidance with the patient in the uprig ht position. Overlying skin was prepped and draped in the usual sterile fashion and with local anest hetic, a dermatotomy was made with an 11 blade scalpel. A 6 Serbian thoracentesis catheter was placed in the pleural space and fluid was removed. Catheter was then removed and a sterile dressing applie d. There were no immediate complications. The patient tolerated the procedure well and the left the ultrasound suite in stable condition. Chest radiograph is to be obtained. CONCLUSION: Uncomplicated ultrasound guided thoracentesis. Kumar Hollis MD on September 30, 2017 at 15:23 Board Certified Radiologist. This report was verified electronically.
[2017-09-30 17:02] LABS: AUTOMATED NEUTROPHIL # 1.6 TH/MM3 (1.8-7.7); BASOPHIL % 0.5 % (0.0-2.0); EOSINOPHIL % 0.6 % (0.0-4.0); HEMATOCRIT 25.3 % (39.0-51.0); LYMPH % 23.9 % (9.0-44.0); LYMPHOCYTE # 0.6 TH/MM3 (1.0-4.8); MEAN CELL VOLUME 86.5 FL (80.0-100.0); MEAN CORPUSCULAR HEMOGLOBIN 28.3 PG (27.0-34.0); MEAN CORPUSCULAR HGB CONC 32.7 % (32.0-36.0); MONO % 8.8 % (0.0-8.0); NEUT % 66.2 % (16.0-70.0); PLATELET COUNT 61 TH/MM3 (150-450); RED BLOOD COUNT 2.93 MIL/MM3 (4.50-5.90); RED CELL DISTRIBUTION WIDTH 17.7 % (11.6-17.2); WHITE BLOOD COUNT 2.4 TH/MM3 (4.0-11.0)
[2017-09-30 17:05] LABS: HEMO FLAGS AUTO DIFF
[2017-09-30 17:10] LABS: ALT (GPT) 15 U/L (12-78); ANION GAP 8 MEQ/L (5-15); AST (GOT) 19 U/L (15-37); BICARBONATE 27.1 MEQ/L (21.0-32.0); BLOOD UREA NITROGEN 31 MG/DL (7-18); CHLORIDE 108 MEQ/L (98-107); GLOMERULAR FILTRATION RATE 89 ML/MIN (>89); POTASSIUM 3.3 MEQ/L (3.5-5.1); SODIUM (NA) 143 MEQ/L (136-145)
[2017-09-30 17:12] LABS: ALKALINE PHOSPHATASE 67 U/L (45-117)
[2017-09-30 17:44] LABS: OVALOCYTES 1+ (NORMAL); TEARDROP RBCS 1+ (NORMAL)
[2017-09-30 17:45] LABS: PLATELET ESTIMATE SMEAR LOW (NORMAL); PLATELET MORPHOLOGY NORMAL (NORMAL); SCAN/DIFF AUTO DIFF CONFIRMED
--- NOTE | 2017-09-30 19:07 | MB ---
cc: SAMMYIRVINGKIA DATE OF CONSULTATION 09/30/2017 HISTORY OF THE PRESENT ILLNESS Mr. Brewer is an 82-year-old white male with a history of coronary artery disease, recurrent pleural effusions, and Matti granulomatosis. He presented with palpitations, lightheadedness, generalized weakness and fatigue. He also complains of dyspnea, chronic lower extremity edema and mild substernal chest discomfort. He has been recently started on chemotherapy by Dr. Maria. PAST MEDICAL HISTORY Positive for: 1. Mild to moderate coronary artery disease by cardiac catheterization in 2015, preserved left ventricular function. 2. Recurrent pleural effusions treated with thoracentesis and chest tube placement. 3. Colorectal cancer treated with a colectomy in 2004. 4. Colostomy reversal in 2005. 5. Right inguinal hernia repair. 6. History of anemia. 7. Lymphocytosis. 8. Splenomegaly. 9. Matti granulomatosis. 10. Thrombocytopenia. 11. Mild to moderate aortic stenosis. 12. DVT / PE. 13. Hernia repair. MEDICATIONS Include: 1. . 2. Furosemide. 3. Prednisone. 4. Carvedilol. 5. Vitamin B12. 6. Hydrocodone. 7. Acetaminophen as needed. 8. Tylenol Extra Strength p.r.n. ALLERGIES None. SOCIAL HISTORY The patient does not smoke. He does not drink alcohol. FAMILY HISTORY Positive for heart disease in his older brother. REVIEW OF SYSTEMS Otherwise negative. PHYSICAL EXAMINATION VITAL SIGNS: Blood pressure 144/76, pulse is 59 and irregular. HEENT: Negative. 2+ carotid upstrokes. No bruits. LUNGS: Clear with decreased breath sounds in bases. HEART: Irregular with no murmur, gallop or rub. ABDOMEN: Soft. No bruits. EXTREMITIES: 2+ edema. 1+ distal pulses. NEUROLOGIC: Exam is grossly nonfocal. EKG was reviewed and showed sinus bradycardia, PACs, normal axis and intervals, no acute changes. ECHOCARDIOGRAM Last echocardiogram on 09/23 showed ejection fraction of 55%, mild aortic stenosis, mitral insufficiency and mild tricuspid regurgitation. LABORATORY DATA Hemoglobin 9.9. Potassium 4.0, creatinine 1.3. Troponin negative x3. CK normal. BNP 171. DIAGNOSES 1. Dyspnea and edema. 2. Bilateral pleural effusions. 3. Chronic lymphocytic leukemia. 4. Matti granulomatosis. 5. History of DVT / PE. 6. Cirrhosis. 7. Mild aortic stenosis. 8. Mitral insufficiency. 9. Preserved left ventricular systolic function. DISPOSITION 1. Mr. Brewer will be monitored on telemetry. He is undergoing neurological evaluation and will need to be scheduled for ultrasound-guided thoracentesis. 2. Continue diuresis closely monitoring his renal function. There is no evidence of acute coronary syndrome at this time. His recent echocardiogram showed well-preserved left ventricle systolic function. I will follow him for cardiology during his hospitalization. I will see for follow up in our office after discharge. Shiraz Retana MD OCierra/KK /4:29 PM /6:46 PM
--- NOTE | 2017-09-30 21:04 | HHI.PR ---
Subjective Remarks 82 YOWM with CLL, Dysnoea, Pl eff Had TC done Mild sob Palliative care evaluating pt Objective Vital Signs Vital Signs Date Time Temp Pulse Resp B/P (MAP) Pulse Ox O2 Delivery O2 Flow Rate FiO2 09/30/17 15:42 97.5 59 18 147/76 (99) 97 09/30/17 14:41 62 09/30/17 14:28 97.9 58 20 143/76 (98) 95 09/30/17 13:50 97.4 56 14 139/76 (97) 95 09/30/17 13:35 97.4 63 14 130/76 (94) 95 09/30/17 13:13 97.6 67 16 141/73 (95) 96 09/30/17 13:11 69 09/30/17 07:50 97.4 75 20 148/66 (93) 93 09/30/17 07:32 94 21 09/30/17 07:30 63 09/30/17 07:30 63 09/30/17 04:00 98.4 84 18 107/64 (78) 94 09/30/17 01:12 57 09/29/17 23:47 98.4 67 18 131/68 (89) 95 09/29/17 21:13 97 I/O 09/29/17 09/29/17 09/29/17 09/30/17 09/30/17 09/30/17 07:00 15:00 23:00 07:00 15:00 23:00 Intake Total 100 ml Output Total 325 ml 600 ml 250 ml Balance -325 ml -500 ml -250 ml Intake Oral 100 ml Output Urine Total 325 ml 600 ml 250 ml # Voids 6 2 # Bowel Movements 5 Result Diagram: 09/30/17 1604 09/30/17 1604 Objective Remarks GENERAL: Elderly male, mild sob SKIN: Warm and dry. HEAD: Normocephalic. EYES: No scleral icterus. No injection or drainage. NECK: Supple, trachea midline. No JVD or lymphadenopathy. CARDIOVASCULAR: Regular rate and rhythm without murmurs, gallops, or rubs. RESPIRATORY: Breath sounds equal bilaterally. No accessory muscle use. GASTROINTESTINAL: Abdomen soft, non-tender, nondistended. MUSCULOSKELETAL: No cyanosis, or edema. BACK: Nontender without obvious deformity. No CVA tenderness. A/P Assessment and Plan Pleural effusion Dysnoea Matti's granulomatosis CLL PLAN Aerosol nebs PRN Supplement 02 PO Prednisone Palliative care evaluatin Francois Nava MD Sep 30, 2017 21:04
--- NOTE | 2017-09-30 22:54 | MB ---
cc: LYDIA NOVOA M.D. DATE OF CONSULTATION 09/30/2017 REASON FOR CONSULTATION Consult requested by Dr. Lorenzo of [facility] for followup of chronic lymphocytic leukemia. HISTORY OF PRESENT ILLNESS Brent is a frail 82-year-old male. He is under the care of my associate Dr. Maria for chronic lymphocytic leukemia. The patient recently was found to have progressive disease. He had multiple constitutional B symptoms including fatigue, weakness. His platelet count was running between 80-100,000 and also hemoglobin was less than 10. Due to that Dr. Maria had recommended chemotherapy. The patient had agreed. He was started on Rituxan and Treanda chemotherapy last week Saturday. According to the patient's son he feels so much better on last week Saturday and the first day of the chemotherapy. This was because of the steroid. The next day he had day two of Treanda. The Treanda was dose reduced due to his frail condition. Since then the patient and his son stated that he is going downhill. He came into the emergency room complaining of extreme weakness, tiredness, fatigue, swelling of the ankles and shortness of breath. The patient was found to be in congestive heart failure and also large bilateral pleural effusions similar to the previous CT scan. He was also found to have large hiatal hernia and upper abdominal varices. This did not show any pulmonary embolism. The patient was treated with diuresis. He had a right-sided ultrasound-guided therapeutic thoracentesis today. Oncology was consulted for further evaluation. Since Dr. Maria is out of town I have been seeing him in his absence. The patient's son stated that the patient has decided against further chemotherapy. He thinks that all his problems started after the chemotherapy was initiated last week. He is complaining of extreme weakness, tiredness and fatigue with dyspnea on exertion. The symptoms are improving since he has been in the hospital. According to the son his leg was swollen up to the knees. However, with the diuresis they are now back to normal size. The edema in his legs has resolved. He also has slight abdominal distension due to the ascites which has also resolved now. His breathing has improved with the diuresis as well as the right therapeutic thoracentesis today 850 mL of cloudy yellow fluid was removed and was discarded since this was only a therapeutic study but not non diagnostic. The patient denies any fevers. He has been complaining of weight loss and fatigue. The rest of the review of systems is negative. PAST MEDICAL HISTORY 1. Chronic lymphocytic leukemia. 2. History of colon cancer. 3. Cirrhosis of the liver. 4. History of DVT. PAST SURGICAL HISTORY 1. Colon resection. 2. Hernia repair. 3. Thoracentesis. ALLERGIES None. MEDICATIONS Please see EMR. FAMILY HISTORY Noncontributory. SOCIAL HISTORY He does not smoke cigarettes, does not drink alcohol. He used to own a restaurant. PHYSICAL EXAMINATION GENERAL: This is a well-developed, frail white male in no apparent distress. VITAL SIGNS: Temperature 97.5, heart rate is 59, blood pressure 147/76, O2 saturation 97%. HEENT: PERRLA, EOMI, anicteric. No oral lesions noted. NECK: No lymphadenopathy noted. LUNGS: Decreased breath sounds with the bilateral crackles noted. Decreased breath sounds on the left side. CARDIOVASCULAR: Heart is regular rate and rhythm. ABDOMEN: Soft, nontender. EXTREMITIES: No pedal edema. NEUROLOGIC: Awake, alert, oriented times threes. SKIN: No significant lesions noted. ASSESSMENT 1. Symptomatic chronic lymphocytic leukemia status post first cycle of Rituxan and modified Treanda chemotherapy last week. 2. Exacerbation of congestive heart failure. 3. Cirrhosis of the liver. 4. Bilateral pleural effusions status post right therapeutic thoracentesis. PLAN I have reviewed his available records and I had an extensive discussion with the patient and his son regarding the chronic lymphocytic leukemia and its treatment. The patient was found to have progressive chronic lymphocytic leukemia. His platelet count was running between 80 and 100 and his hemoglobin was running less than 10. He also has constitutional symptoms of the leukemia. The patient was appropriately started on chemotherapy last week. However, he is unable to tolerate it. He has declined further chemotherapy at this time. The patient's son stated that it is his dad's personal decision and he will honor it. The patient had a blood test today. The CBC showed white count 2.4, hemoglobin 8.3, hematocrit 25.3, platelet count is 61. The patient does not have any fevers. His absolute neutrophil count is 1600. We will continue to monitor him closely. If the patient develops fever then we will initiate antibiotics and we will do the neutropenic fever protocol. We will give him blood transfusion if hemoglobin drops below 8. The patient's symptoms have improved since he has been in the hospital after receiving diuresis and thoracentesis. I recommend to monitor the CBC. Palliative care has been has been consulted and we are waiting for their input. Further recommendations based on his hospital stay. Thank you for asking my opinion. MD ESSIE Schroeder/SALBADOR /5:56 PM /10:39 PM MTDD
[2017-10-01] VITALS (8 sets, daily range): BP systolic 109–131; BP diastolic 51–70; PULSE 61–81; RESP 16; TEMP 98–98.4; O2SAT 92–95
--- NOTE | 2017-10-01 08:31 | HHI.PR ---
Subjective Remarks This is a pleasant 82 y/o Male who was admitted by inbound ingredient logistics specialist on as we know he has CLL with anemia, Lymphocytosis, Splenomegaly, Matti's granulomatosis, chronic bilateral pleural effusions, thrombocytopenia, Mild to moderate CAD, Mild to Moderate Aortic Stenosis, Colon Cancer s/p resection/ ostomy reversal w/ chemo/radiation, DVT/PE, Hernia repair and multiple Thoracentesis secondary to Pleural effusions. who came to ER with complaint of intermittent "fluttering" in chest with mild lightheadedness. He denies associated chest pain /pressure or near syncope, He follows with Oncology Dr. Ez Maria and began chemo this week with treatment on 09/26 and 09/[address] Maria's note with Rituxan and Bendamustine. Last Cardiac Cath 09/23/16 for NSTEMI with mild to moderate CAD, Normal EF 65% with medical management recommended. 07/30/17 2D echo with mild to moderate , EF 60-65% with normal systolic function and diastolic function. seen in his bedroom in the presence of nurse Miss Huntley, patient had Electrolyte derangement, no nausea, vomit or diarrhea wants to go home. his Caregiver in the room. Objective Vital Signs Date Time Temp Pulse Resp B/P (MAP) Pulse Ox O2 Delivery O2 Flow Rate FiO2 10/01/17 04:50 98.1 63 16 109/51 (70) 92 10/01/17 04:02 81 10/01/17 00:25 21 10/01/17 00:04 61 09/30/17 23:50 97.4 65 16 124/66 (85) 94 09/30/17 23:50 97.4 65 16 124/66 (85) 94 09/30/17 20:18 69 09/30/17 20:00 98.3 69 16 121/59 (79) 93 09/30/17 20:00 98.3 69 16 121/59 (79) 93 09/30/17 15:42 97.5 59 18 147/76 (99) 97 09/30/17 14:41 62 09/30/17 14:28 97.9 58 20 143/76 (98) 95 09/30/17 13:50 97.4 56 14 139/76 (97) 95 09/30/17 13:35 97.4 63 14 130/76 (94) 95 09/30/17 13:13 97.6 67 16 141/73 (95) 96 09/30/17 13:11 69 I/O 09/30/17 09/30/17 09/30/17 10/01/17 10/01/17 10/01/17 07:00 15:00 23:00 07:00 15:00 23:00 Intake Total 100 ml 240 ml Output Total 600 ml 250 ml 500 ml Balance -500 ml -250 ml -260 ml Intake Oral 100 ml 240 ml Output Urine Total 600 ml 250 ml 500 ml # Bowel Movements 5 Result Diagram: 09/30/17 1604 09/30/17 1604 Imaging Last Impressions Thoracentesis Ultrasound 09/30/17 0600 Signed Impressions: Service Date/Time: Saturday, September 30, 2017 13:02 - CONCLUSION: Uncomplicated ultrasound guided thoracentesis. Kumar Hollis MD Chest X-Ray 09/30/17 0000 Signed Impressions: Service Date/Time: Saturday, September 30, 2017 13:33 - CONCLUSION: Negative for right pneumothorax. Afshin Shin MD FACR CT Angiography 09/28/17 1721 Signed Impressions: Service Date/Time: Thursday, September 28, 2017 20:04 - CONCLUSION: 1. The study is negative for pulmonary embolism. 2. Large bilateral pleural effusions, similar to CT 10/06/16. 3. 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 Eagle Martinez MD Procedures Pleural Effusion status post Ultrasound guided thoracentesis, obtained 850 cc of fluid 09/30/17 Other Results Laboratory Tests Test 09/28/17 16:40 09/28/17 18:17 09/29/17 01:15 09/30/17 16:04 Acanthocytes OCC Keratocytes OCC Prothrombin Time 12.2 SEC Prothromb Time International Ratio 1.1 RATIO Activated Partial Thromboplast Time 24.7 SEC Protein Corrected Calcium 8.2 MG/DL B-Type Natriuretic Peptide 171 PG/ML Urine Color YELLOW Urine Turbidity CLEAR Urine pH 5.0 Urine Specific [place] 1.012 Urine Protein TRACE mg/dL Urine Glucose (UA) NEG mg/dL Urine Ketones NEG mg/dL Urine Occult Blood MOD Urine Nitrite NEG Urine Bilirubin NEG Urine Urobilinogen LESS THAN 2.0 MG/DL Urine Leukocyte Esterase NEG Urine RBC 3 /hpf Urine WBC 1 /hpf Urine Hyaline Casts 6 /lpf Microscopic Urinalysis Comment CULT NOT INDICATED Total Creatine Kinase 19 U/L Troponin I LESS THAN 0.02 NG/ML White Blood Count 2.4 TH/MM3 Red Blood Count 2.93 MIL/MM3 Hemoglobin 8.3 GM/DL Hematocrit 25.3 % Mean Corpuscular Volume 86.5 FL Mean Corpuscular Hemoglobin 28.3 PG Mean Corpuscular Hemoglobin Concent 32.7 % Red Cell Distribution Width 17.7 % Platelet Count 61 TH/MM3 Mean Platelet Volume 8.6 FL Neutrophils (%) (Auto) 66.2 % Lymphocytes (%) (Auto) 23.9 % Monocytes (%) (Auto) 8.8 % Eosinophils (%) (Auto) 0.6 % Basophils (%) (Auto) 0.5 % Neutrophils # (Auto) 1.6 TH/MM3 Lymphocytes # (Auto) 0.6 TH/MM3 Monocytes # (Auto) 0.2 TH/MM3 Eosinophils # (Auto) 0.0 TH/MM3 Basophils # (Auto) 0.0 TH/MM3 CBC Comment AUTO DIFF Differential Comment AUTO DIFF CONFIRMED Platelet Estimate LOW Platelet Morphology Comment NORMAL Tear Drop Cells 1+ Ovalocytes 1+ Blood Urea Nitrogen 31 MG/DL Creatinine 0.83 MG/DL Random Glucose 92 MG/DL Total Protein 4.6 GM/DL Albumin 2.1 GM/DL Calcium Level 7.5 MG/DL Alkaline Phosphatase 67 U/L Aspartate Amino Transf (AST/SGOT) 19 U/L Alanine Aminotransferase (ALT/SGPT) 15 U/L Total Bilirubin 2.0 MG/DL Sodium Level 143 MEQ/L Potassium Level 3.3 MEQ/L Chloride Level 108 MEQ/L Carbon Dioxide Level 27.1 MEQ/L Anion Gap 8 MEQ/L Estimat Glomerular Filtration Rate 89 ML/MIN Objective Remarks General: Alert and oriented x 3. No acute distress. Skin: Warm and Dry HEENT: Normocephalic Atraumatic. No JVD. Cardiovascular: S1 and S2 in regular rhythm bradycardic rate. No S3, S4, rub or gallop. Grade 2/6 systolic murmur loudest RUSB and LUSB. Respiratory: Decreased breath sounds, GI: abdomen soft and flat. Normoactive bowel sounds. No tenderness. Musculoskeletal: No clubbing, cyanosis or obvious deformities. Bilateral lower extremity edema 2+ feet/ankles and 1+ knees. Neuro: Arouses easily and alert. No obvious cranial nerve deficits. Lying in bed and able to slowly move all extremities slowly. Gait is not observed. Speech is clear but soft and talks slowly. Psychiatric: Pleasant, mildly flat depressed affect. Insight and judgement appear normal Medications and IVs Current Medications Medications (Trade) Dose Ordered Sig/Chantel Route Start Time Stop Time Status Last Admin (Deltasone) 2.5 mg BID PO 09/29/17 21:00 09/30/17 22:25 (NS Flush) 2 ml UNSCH PRN IV FLUSH 09/29/17 11:45 (NS Flush) 2 ml BID IV FLUSH 09/29/17 21:00 09/30/17 22:26 (Zofran Inj) 4 mg Q6H PRN IV PUSH 09/29/17 11:45 (Nitrostat Sl) 0.4 mg Q5M PRN SL 09/29/17 11:45 (Pill Splitter) 1 ea UNSCH PRN OTHER 09/29/17 21:00 (Coreg) 3.125 mg BID PO 09/29/17 21:00 09/30/17 22:25 (Lasix Inj) 20 mg BID@09,18 IV PUSH 09/29/17 18:00 09/30/17 08:55 A/P Assessment and Plan Intermittent Palpitations, chronic dyspnea with large pleural effusions, Chronic Leg edema: Tele as above events and continued monitoring. Seen and evaluated by Dr. Andujar (cardiology) in [facility]. No stress test recommended. Recommend admission to [facility] service for further medical management and likely admission. Will leave any recommendations for Speciality consults to their discretion. BB is held. Pleural effusions: chronic, Continue diuresis. social media specialist consulted. Therapeutic thoracentesis 09/30/17 performed. Acute on chronic CHFwith fluid overload, continue Lasix 20 mg IV bid . Cardiology following, will continue Lasix. Palpitations. Had 4 beat run of V tach . Resume Coreg with holding parameters. Monitor on telemetry. Also cardiology consulted. H/o CLL on chemotherapy, follows with Dr Pedroza oncology, consulted Consult palliative care for goals of care DVT ppx SCD/TEDs, lovenox Discharge Planning Expected later today or in am tomorrow. Mega Mercado MD Oct 01, 2017 08:31
[2017-10-01] MEDS ORDERED: POTASSIUM CHLORIDE 20 MEQ CONTROLLED RELEASE TAB PO ONE ×2 (08:45→16:30)
[2017-10-01] MEDS: FUROSEMIDE 20 MG/2 ML VIAL IV PUSH SCH ×2 (09:54→17:59)
[2017-10-01] MEDS: predniSONE 5 MG TAB PO SCH ×2 (09:55→21:00)
[2017-10-01] MEDS: CARVEDILOL 3.125 MG TAB PO SCH ×2 (09:55→21:00)
[2017-10-01] MEDS: SODIUM CHLORIDE 0.9% FLUSH 10 ML FLUSH IV FLUSH SCH ×2 (09:55→21:00)
[2017-10-01 11:32] LABS: AUTOMATED NEUTROPHIL # 1.8 TH/MM3 (1.8-7.7); BASOPHIL % 0.8 % (0.0-2.0); EOSINOPHIL # 0.1 TH/MM3 (0-0.4); EOSINOPHIL % 2.2 % (0.0-4.0); HEMATOCRIT 26.7 % (39.0-51.0); LYMPH % 20.6 % (9.0-44.0); LYMPHOCYTE # 0.6 TH/MM3 (1.0-4.8); MEAN CELL VOLUME 87.2 FL (80.0-100.0); MEAN CORPUSCULAR HEMOGLOBIN 28.7 PG (27.0-34.0); MEAN CORPUSCULAR HGB CONC 32.9 % (32.0-36.0); MONO % 10.3 % (0.0-8.0); NEUT % 66.1 % (16.0-70.0); PLATELET COUNT 75 TH/MM3 (150-450); RED BLOOD COUNT 3.07 MIL/MM3 (4.50-5.90); RED CELL DISTRIBUTION WIDTH 17.7 % (11.6-17.2); WHITE BLOOD COUNT 2.7 TH/MM3 (4.0-11.0)
[2017-10-01 11:35] LABS: HEMO FLAGS AUTO DIFF
[2017-10-01 11:49] LABS: BICARBONATE 26.6 MEQ/L (21.0-32.0); CALCIUM-PROTEIN CORRECTED 8.8 MG/DL (8.5-10.1); POTASSIUM 3.1 MEQ/L (3.5-5.1); TOTAL BILIRUBIN ADULT 1.7 MG/DL (0.2-1.0)
--- NOTE | 2017-10-01 12:10 | PD.ONC.PN ---
Subjective Subjective Remarks Afebrile overnight. Patient resting in bed in nad. No complaints. Objective Data Date Time Temp Pulse Resp B/P (MAP) Pulse Ox O2 Delivery O2 Flow Rate FiO2 10/01/17 08:51 98.4 63 16 131/69 (89) 92 10/01/17 04:50 98.1 63 16 109/51 (70) 92 10/01/17 04:02 81 10/01/17 00:25 21 10/01/17 00:04 61 09/30/17 23:50 97.4 65 16 124/66 (85) 94 09/30/17 23:50 97.4 65 16 124/66 (85) 94 09/30/17 20:18 69 09/30/17 20:00 98.3 69 16 121/59 (79) 93 09/30/17 20:00 98.3 69 16 121/59 (79) 93 09/30/17 15:42 97.5 59 18 147/76 (99) 97 09/30/17 14:41 62 09/30/17 14:28 97.9 58 20 143/76 (98) 95 09/30/17 13:50 97.4 56 14 139/76 (97) 95 09/30/17 13:35 97.4 63 14 130/76 (94) 95 09/30/17 13:13 97.6 67 16 141/73 (95) 96 09/30/17 13:11 69 10/01/17 10/01/17 10/01/17 07:00 15:00 23:00 Intake Total 240 ml Output Total 500 ml Balance -260 ml Result Diagram: 10/01/17 1100 10/01/17 1100 Laboratory Results Laboratory Tests Test 09/30/17 16:04 10/01/17 11:00 White Blood Count 2.4 TH/MM3 2.7 TH/MM3 Red Blood Count 2.93 MIL/MM3 3.07 MIL/MM3 Hemoglobin 8.3 GM/DL 8.8 GM/DL Hematocrit 25.3 % 26.7 % Mean Corpuscular Volume 86.5 FL 87.2 FL Mean Corpuscular Hemoglobin 28.3 PG 28.7 PG Mean Corpuscular Hemoglobin Concent 32.7 % 32.9 % Red Cell Distribution Width 17.7 % 17.7 % Platelet Count 61 TH/MM3 75 TH/MM3 Mean Platelet Volume 8.6 FL 8.6 FL Neutrophils (%) (Auto) 66.2 % 66.1 % Lymphocytes (%) (Auto) 23.9 % 20.6 % Monocytes (%) (Auto) 8.8 % 10.3 % Eosinophils (%) (Auto) 0.6 % 2.2 % Basophils (%) (Auto) 0.5 % 0.8 % Neutrophils # (Auto) 1.6 TH/MM3 1.8 TH/MM3 Lymphocytes # (Auto) 0.6 TH/MM3 0.6 TH/MM3 Monocytes # (Auto) 0.2 TH/MM3 0.3 TH/MM3 Eosinophils # (Auto) 0.0 TH/MM3 0.1 TH/MM3 Basophils # (Auto) 0.0 TH/MM3 0.0 TH/MM3 CBC Comment AUTO DIFF AUTO DIFF Differential Comment AUTO DIFF CONFIRMED Platelet Estimate LOW Platelet Morphology Comment NORMAL Tear Drop Cells 1+ Ovalocytes 1+ Blood Urea Nitrogen 31 MG/DL 32 MG/DL Creatinine 0.83 MG/DL 1.04 MG/DL Random Glucose 92 MG/DL 162 MG/DL Total Protein 4.6 GM/DL 4.6 GM/DL Albumin 2.1 GM/DL 2.2 GM/DL Calcium Level 7.5 MG/DL 7.4 MG/DL Alkaline Phosphatase 67 U/L 58 U/L Aspartate Amino Transf (AST/SGOT) 19 U/L 18 U/L Alanine Aminotransferase (ALT/SGPT) 15 U/L 17 U/L Total Bilirubin 2.0 MG/DL 1.7 MG/DL Sodium Level 143 MEQ/L 144 MEQ/L Potassium Level 3.3 MEQ/L 3.1 MEQ/L Chloride Level 108 MEQ/L 108 MEQ/L Carbon Dioxide Level 27.1 MEQ/L 26.6 MEQ/L Anion Gap 8 MEQ/L 9 MEQ/L Estimat Glomerular Filtration Rate 89 ML/MIN 69 ML/MIN Phosphorus Level 3.0 MG/DL Magnesium Level 2.0 MG/DL Protein Corrected Calcium 8.8 MG/DL Culture Results Microbiology Date/Time Source Procedure Growth Status 09/28/17 16:55 Blood Peripheral Aerobic Blood Culture - Preliminary NO GROWTH IN 3 DAYS Resulted 09/28/17 16:55 Blood Peripheral Anaerobic Blood Culture - Preliminary NO GROWTH IN 3 DAYS Resulted 09/28/17 16:40 Blood Peripheral Aerobic Blood Culture - Preliminary NO GROWTH IN 3 DAYS Resulted 09/28/17 16:40 Blood Peripheral Anaerobic Blood Culture - Preliminary NO GROWTH IN 3 DAYS Resulted 09/28/17 16:55 Nasal Washing Influenza Types A,B Antigen (LAURIE) - Final NEGATIVE FOR FLU A AND B ANTIGEN.... Complete Administered Medications Medications (Trade) Dose Ordered Sig/Chantel Route PRN Reason Start Time Stop Time Status Last Admin Dose Admin Prednisone (Deltasone) 2.5 mg BID PO 09/29/17 21:00 10/01/17 09:55 Sodium Chloride (NS Flush) 2 ml BID IV FLUSH 09/29/17 21:00 10/01/17 09:55 Carvedilol (Coreg) 3.125 mg BID PO 09/29/17 21:00 10/01/17 09:55 Furosemide (Lasix Inj) 20 mg BID@,18 IV PUSH 09/29/17 18:00 10/01/17 09:54 Objective Remarks GENERAL: Elderly male supine in bed resting. SKIN: Warm and dry. HEAD: Normocephalic. EYES: No injection or drainage. NECK: Supple, trachea midline. CARDIOVASCULAR: +S1/S2 RESPIRATORY: anterior guerin clear. GASTROINTESTINAL: Abdomen soft, non-tender, nondistended. EXTREMITIES: No cyanosis NEUROLOGICAL: awake and alert, normal speech. Assessment/Plan Problem List: (1) CLL (chronic lymphocytic leukemia) ICD Codes: C91.10 - Chronic lymphocytic leukemia of B-cell type not having achieved remission Plan: --recently was found to have progressive disease. --had multiple constitutional B symptoms including fatigue, weakness. --platelet count was running between 80-100,000 and also hemoglobin was less than 10. --started on Rituxan and Treanda chemotherapy last week Saturday. --Since D2 of Treanda, patient has been declining. -- came into the emergency room complaining of extreme weakness, tiredness, fatigue, swelling of the ankles and shortness of breath. (2) CHF (congestive heart failure) ICD Codes: I50.9 - Heart failure, unspecified Plan: --patient was found to be in congestive heart failure and also large bilateral pleural effusions similar to the previous CT scan. --was treated with diuresis. --s/p right-sided ultrasound-guided therapeutic thoracentesis (3) Pancytopenia ICD Codes: D61.818 - Other pancytopenia Plan: --give blood transfusion if hemoglobin drops below 8. --monitor neutrophil count Assessment 82y/o male admitted for followup of chronic lymphocytic leukemia. h/o Chronic lymphocytic leukemia. History of colon cancer. Cirrhosis of the liver. History of DVT. Plan 1. monitor CBC, BMP 2. continue supportive care 3. prepare for d/c tomorrow Attending Statement The exam, history, and the medical decision-making described in the above note were completed with the assistance of the mid-level provider. I reviewed and agree with the findings presented. I attest that I had a [id number] encounter with the patient on the same day, and personally performed and documented my assessment and findings in the medical record. Discussed with patient's son //answered questions patient is chronically wheel chair bound//has recurrent pleural effusions has been in this state for several years admitted with recurrent pleural effusion son stated that he wants to take patient home after discharge will f/u in clinic discussed case with Dr. Retana d/w rn o/n events reviewed Isabella Zepeda Oct 01, 2017 12:09 Ez Maria MD Oct 02, 2017 10:47
[2017-10-01 12:22] LABS: OVALOCYTES 1+ (NORMAL); PLATELET ESTIMATE SMEAR LOW (NORMAL); PLATELET MORPHOLOGY NORMAL (NORMAL); SCAN/DIFF AUTO DIFF CONFIRMED; TEARDROP RBCS 1+ (NORMAL)
--- NOTE | 2017-10-01 13:31 | HHI.HCPN ---
Reason for visit a. To assist with evaluation and management of symptoms including: fatigued , dyspnea, edema b. To assist medical decision maker(s) with: better understanding of current medical conditions; weighing benefits/burdens of medical treatment options; making medical treatment decisions. Subjective/Interval History Interval Hx: he says despite thoracentsis, he still feels the same. Continue to have dyspnea with exertion. He has edema. He continues to have profound fatigued. He states he wants to stay overnight and go home. He decided to go with hospice and change code status to DNR. He is looking forward for his sister to come. Family/friend interactions Pt account liaison at bedside, did not have questions. Advance Directives Health Care Surrogate: Copy in medical record Objective Vital Signs Date Time Temp Pulse Resp B/P (MAP) Pulse Ox O2 Delivery O2 Flow Rate FiO2 10/01/17 08:51 98.4 63 16 131/69 (89) 92 10/01/17 08:40 92 21 10/01/17 04:50 98.1 63 16 109/51 (70) 92 10/01/17 04:02 81 10/01/17 00:25 21 10/01/17 00:04 61 09/30/17 23:50 97.4 65 16 124/66 (85) 94 09/30/17 23:50 97.4 65 16 124/66 (85) 94 09/30/17 20:18 69 09/30/17 20:00 98.3 69 16 121/59 (79) 93 09/30/17 20:00 98.3 69 16 121/59 (79) 93 09/30/17 15:42 97.5 59 18 147/76 (99) 97 09/30/17 14:41 62 09/30/17 14:28 97.9 58 20 143/76 (98) 95 09/30/17 13:50 97.4 56 14 139/76 (97) 95 09/30/17 13:35 97.4 63 14 130/76 (94) 95 Intake & Output 10/01/17 10/01/17 07:00 19:00 Intake Total 240 ml Output Total 500 ml Balance -260 ml Intake Oral 240 ml Output Urine Total 500 ml Physical Exam CONSTITUTIONAL/GENERAL: This is frail elderly gentlemen,fatigued SKIN: No jaundice, rashes, or lesions. No wounds seen anteriorly. HEAD: Atraumatic. Normocephalic. EYES No scleral icterus. No injection or drainage. Fundi not examined. ENT: Throat without visible erythema, exudates, masses, or lesions. NECK: Trachea midline. Supple, nontender. CARDIOVASCULAR: Regular rate and rhythm without murmurs, gallops, or rubs. No JVD. Peripheral pulses symmetric. RESPIRATORY/CHEST: Symmetric, unlabored respirations. On 2 L. CTA bilaterally.. GASTROINTESTINAL: Abdomen soft, non-tender, nondistended. No guarding. Bowel sounds present. GENITOURINARY: Without palpable bladder distension. Rosas catheter in place. MUSCULOSKELETAL:2+ edema of the lower ext LYMPHATICS: not examine today. NEUROLOGICAL: Awake and alert. Motor and sensory grossly within normal limits. Follows commands. Cognitively sharp. Moves all extremities. PSYCHIATRIC: No obvious anxiety/depression. no apparent hallucinations or other psychotic thought process. Diagnostic Tests Laboratory Laboratory Tests Test 09/28/17 16:40 09/28/17 18:17 09/28/17 22:16 09/29/17 01:15 White Blood Count 5.9 TH/MM3 (4.0-11.0) Red Blood Count 3.49 MIL/MM3 (4.50-5.90) Hemoglobin 9.9 GM/DL (13.0-17.0) Hematocrit 30.2 % (39.0-51.0) Mean Corpuscular Volume 86.6 FL (80.0-100.0) Mean Corpuscular Hemoglobin 28.5 PG (27.0-34.0) Mean Corpuscular Hemoglobin Concent 32.9 % (32.0-36.0) Red Cell Distribution Width 17.8 % (11.6-17.2) Platelet Count 90 TH/MM3 (150-450) Mean Platelet Volume 8.9 FL (7.0-11.0) Neutrophils (%) (Auto) 71.3 % (16.0-70.0) Lymphocytes (%) (Auto) 22.9 % (9.0-44.0) Monocytes (%) (Auto) 3.8 % (0.0-8.0) Eosinophils (%) (Auto) 1.2 % (0.0-4.0) Basophils (%) (Auto) 0.8 % (0.0-2.0) Neutrophils # (Auto) 4.2 TH/MM3 (1.8-7.7) Lymphocytes # (Auto) 1.3 TH/MM3 (1.0-4.8) Monocytes # (Auto) 0.2 TH/MM3 (0-0.9) Eosinophils # (Auto) 0.1 TH/MM3 (0-0.4) Basophils # (Auto) 0.0 TH/MM3 (0-0.2) CBC Comment AUTO DIFF Differential Comment AUTO DIFF CONFIRMED Platelet Estimate LOW (NORMAL) Platelet Morphology Comment NORMAL (NORMAL) Ovalocytes 1+ (NORMAL) Acanthocytes OCC (NORMAL) Keratocytes OCC (NORMAL) Prothrombin Time 12.2 SEC (9.8-11.6) Prothromb Time International Ratio 1.1 RATIO Activated Partial Thromboplast Time 24.7 SEC (24.3-30.1) Blood Urea Nitrogen 40 MG/DL (7-18) Creatinine 1.30 MG/DL (0.60-1.30) Random Glucose 126 MG/DL (74-106) Total Protein 5.4 GM/DL (6.4-8.2) Albumin 2.3 GM/DL (3.4-5.0) Calcium Level 7.3 MG/DL (8.5-10.1) Alkaline Phosphatase 85 U/L (45-117) Aspartate Amino Transf (AST/SGOT) 40 U/L (15-37) Alanine Aminotransferase (ALT/SGPT) 21 U/L (12-78) Total Bilirubin 0.8 MG/DL (0.2-1.0) Sodium Level 140 MEQ/L (136-145) Potassium Level 4.0 MEQ/L (3.5-5.1) Chloride Level 108 MEQ/L (98-107) Carbon Dioxide Level 25.0 MEQ/L (21.0-32.0) Anion Gap 7 MEQ/L (5-15) Estimat Glomerular Filtration Rate 53 ML/MIN (>89) Protein Corrected Calcium 8.2 MG/DL (8.5-10.1) Total Creatine Kinase 47 U/L (39-308) 40 U/L (39-308) 19 U/L (39-308) Troponin I LESS THAN 0.02 NG/ML LESS THAN 0.02 NG/ML LESS THAN 0.02 NG/ML B-Type Natriuretic Peptide 171 PG/ML (0-100) Urine Color YELLOW (YELLW/STRAW) Urine Turbidity CLEAR (CLEAR) Urine pH 5.0 (5.0-8.5) Urine Specific [place] 1.012 (1.002-1.035) Urine Protein TRACE mg/dL (NEG-TRACE) Urine Glucose (UA) NEG mg/dL (NEG) Urine Ketones NEG mg/dL (NEG) Urine Occult Blood MOD (NEG) Urine Nitrite NEG (NEG) Urine Bilirubin NEG (NEG) Urine Urobilinogen LESS THAN 2.0 MG/DL (LESS Urine Leukocyte Esterase NEG (NEG) Urine RBC 3 /hpf (0-3) Urine WBC 1 /hpf (0-5) Urine Hyaline Casts 6 /lpf (RARE) Microscopic Urinalysis Comment CULT NOT INDICATED Test 09/30/17 16:04 10/01/17 11:00 White Blood Count 2.4 TH/MM3 (4.0-11.0) 2.7 TH/MM3 (4.0-11.0) Red Blood Count 2.93 MIL/MM3 (4.50-5.90) 3.07 MIL/MM3 (4.50-5.90) Hemoglobin 8.3 GM/DL (13.0-17.0) 8.8 GM/DL (13.0-17.0) Hematocrit 25.3 % (39.0-51.0) 26.7 % (39.0-51.0) Mean Corpuscular Volume 86.5 FL (80.0-100.0) 87.2 FL (80.0-100.0) Mean Corpuscular Hemoglobin 28.3 PG (27.0-34.0) 28.7 PG (27.0-34.0) Mean Corpuscular Hemoglobin Concent 32.7 % (32.0-36.0) 32.9 % (32.0-36.0) Red Cell Distribution Width 17.7 % (11.6-17.2) 17.7 % (11.6-17.2) Platelet Count 61 TH/MM3 (150-450) 75 TH/MM3 (150-450) Mean Platelet Volume 8.6 FL (7.0-11.0) 8.6 FL (7.0-11.0) Neutrophils (%) (Auto) 66.2 % (16.0-70.0) 66.1 % (16.0-70.0) Lymphocytes (%) (Auto) 23.9 % (9.0-44.0) 20.6 % (9.0-44.0) Monocytes (%) (Auto) 8.8 % (0.0-8.0) 10.3 % (0.0-8.0) Eosinophils (%) (Auto) 0.6 % (0.0-4.0) 2.2 % (0.0-4.0) Basophils (%) (Auto) 0.5 % (0.0-2.0) 0.8 % (0.0-2.0) Neutrophils # (Auto) 1.6 TH/MM3 (1.8-7.7) 1.8 TH/MM3 (1.8-7.7) Lymphocytes # (Auto) 0.6 TH/MM3 (1.0-4.8) 0.6 TH/MM3 (1.0-4.8) Monocytes # (Auto) 0.2 TH/MM3 (0-0.9) 0.3 TH/MM3 (0-0.9) Eosinophils # (Auto) 0.0 TH/MM3 (0-0.4) 0.1 TH/MM3 (0-0.4) Basophils # (Auto) 0.0 TH/MM3 (0-0.2) 0.0 TH/MM3 (0-0.2) CBC Comment AUTO DIFF AUTO DIFF Differential Comment AUTO DIFF CONFIRMED AUTO DIFF CONFIRMED Platelet Estimate LOW (NORMAL) LOW (NORMAL) Platelet Morphology Comment NORMAL (NORMAL) NORMAL (NORMAL) Tear Drop Cells 1+ (NORMAL) 1+ (NORMAL) Ovalocytes 1+ (NORMAL) 1+ (NORMAL) Blood Urea Nitrogen 31 MG/DL (7-18) 32 MG/DL (7-18) Creatinine 0.83 MG/DL (0.60-1.30) 1.04 MG/DL (0.60-1.30) Random Glucose 92 MG/DL (74-106) 162 MG/DL (74-106) Total Protein 4.6 GM/DL (6.4-8.2) 4.6 GM/DL (6.4-8.2) Albumin 2.1 GM/DL (3.4-5.0) 2.2 GM/DL (3.4-5.0) Calcium Level 7.5 MG/DL (8.5-10.1) 7.4 MG/DL (8.5-10.1) Alkaline Phosphatase 67 U/L (45-117) 58 U/L (45-117) Aspartate Amino Transf (AST/SGOT) 19 U/L (15-37) 18 U/L (15-37) Alanine Aminotransferase (ALT/SGPT) 15 U/L (12-78) 17 U/L (12-78) Total Bilirubin 2.0 MG/DL (0.2-1.0) 1.7 MG/DL (0.2-1.0) Sodium Level 143 MEQ/L (136-145) 144 MEQ/L (136-145) Potassium Level 3.3 MEQ/L (3.5-5.1) 3.1 MEQ/L (3.5-5.1) Chloride Level 108 MEQ/L (98-107) 108 MEQ/L (98-107) Carbon Dioxide Level 27.1 MEQ/L (21.0-32.0) 26.6 MEQ/L (21.0-32.0) Anion Gap 8 MEQ/L (5-15) 9 MEQ/L (5-15) Estimat Glomerular Filtration Rate 89 ML/MIN (>89) 69 ML/MIN (>89) Phosphorus Level 3.0 MG/DL (2.5-4.9) Magnesium Level 2.0 MG/DL (1.5-2.5) Protein Corrected Calcium 8.8 MG/DL (8.5-10.1) Result Diagram: 10/01/17 1100 10/01/17 1100 Microbiology Microbiology Date/Time Source Procedure Growth Status 09/28/17 16:55 Blood Peripheral Aerobic Blood Culture - Preliminary NO GROWTH IN 3 DAYS Resulted 09/28/17 16:55 Blood Peripheral Anaerobic Blood Culture - Preliminary NO GROWTH IN 3 DAYS Resulted 09/28/17 16:40 Blood Peripheral Aerobic Blood Culture - Preliminary NO GROWTH IN 3 DAYS Resulted 09/28/17 16:40 Blood Peripheral Anaerobic Blood Culture - Preliminary NO GROWTH IN 3 DAYS Resulted 09/28/17 16:55 Nasal Washing Influenza Types A,B Antigen (LAURIE) - Final NEGATIVE FOR FLU A AND B ANTIGEN.... Complete Imaging Last Impressions Thoracentesis Ultrasound 09/30/17 0600 Signed Impressions: Service Date/Time: Saturday, September 30, 2017 13:02 - CONCLUSION: Uncomplicated ultrasound guided thoracentesis. Kumar Hollis MD Chest X-Ray 09/30/17 0000 Signed Impressions: Service Date/Time: Saturday, September 30, 2017 13:33 - CONCLUSION: Negative for right pneumothorax. Afshin Shin MD FACR CT Angiography 09/28/17 1721 Signed Impressions: Service Date/Time: Thursday, September 28, 2017 20:04 - CONCLUSION: 1. The study is negative for pulmonary embolism. 2. Large bilateral pleural effusions, similar to CT 10/06/16. 3. 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 Eagle Martinez MD Assessment and Plan Disease Oriented Problem List: (1) CLL (chronic lymphocytic leukemia) (2) Central hearing loss (3) Physical deconditioning (4) Hx of non-ST elevation myocardial infarction (NSTEMI) (5) Matti-like granulomatosis (6) Cirrhosis of liver (7) Hypersplenism (8) Anemia Symptom Scale: (1) Fatigue 0-10 Scale: 10 Pertinent Non-Medical Issues Psychosocial:lives at home with account liaison. No children. Spiritual:christianity Legal: Health Care Surrogate form scanned in to EMR Ethical issues impacting care: None Important Contacts Pt designated surrogate Lucila Bowles ([phone] (cell) & [phone] ( she was a previous RN). Alternate Surrogate is Amador Bowles (Lucila's son) who is a physician. In addition he states Boni Harrell (account liaison) and Bhavani Rodriguez can be notified and be informed of his condition. Prognosis CLL, recurrent pleural effusion, multiple comorbidities. Would be appropriate for hospice if goals of care is comfort oriented. Code Status: Alternative Code Plan == capacity- has capacity == code: DNR == goals of care: He desires to stay overnight Go home with hospice. He understand hospice could not emergently do thoracentesis. Can do outpatient. == fatigue is multifactorial- cancer burden, multiple comorbidities. Unlikely will improve. == dyspnea- deconditioning, plureal effusion, hx chf, pepito's == edema- due to cardiac hx. == palliative care will f/u Attestation To help prompt me to consider important information that might be impacting today's encounter and assessment, information from prior notes written by myself or my colleagues may have been "brought forward" into today's note. My signature on this note, however, is an attestation that I personally performed the exam, history, and/or decision-making noted today, and, unless otherwise indicated, the interactions with patient, family, and staff as well as the review of records all occurred today. I also attest that the listed assessment and stated plan reflect my best clinical judgment today based on the combination of historical information, prior notes, and today's exam/ interactions. When time spent is documented, it refers only to time spent today by the signer, or if indicated, combined time spent today by collaborating physician/nurse practitioner. Benjie Camara MD Oct 01, 2017 13:31
--- NOTE | 2017-10-01 15:45 | PD.CARD.PN ---
Subjective Subjective Remarks Feels weak and tired, no CP, mild SOB Objective Medications Current Medications Medications (Trade) Dose Ordered Sig/Chantel Route Start Time Stop Time Status Last Admin (Deltasone) 2.5 mg BID PO 09/29/17 21:00 10/01/17 09:55 (NS Flush) 2 ml UNSCH PRN IV FLUSH 09/29/17 11:45 (NS Flush) 2 ml BID IV FLUSH 09/29/17 21:00 10/01/17 09:55 (Zofran Inj) 4 mg Q6H PRN IV PUSH 09/29/17 11:45 (Nitrostat Sl) 0.4 mg Q5M PRN SL 09/29/17 11:45 (Pill Splitter) 1 ea UNSCH PRN OTHER 09/29/17 21:00 (Coreg) 3.125 mg BID PO 09/29/17 21:00 10/01/17 09:55 (Lasix Inj) 20 mg BID@,18 IV PUSH 09/29/17 18:00 10/01/17 09:54 Vital Signs / I&O Vital Signs Date Time Temp Pulse Resp B/P (MAP) Pulse Ox O2 Delivery O2 Flow Rate FiO2 10/01/17 12:00 98.2 72 16 124/70 (88) 95 10/01/17 08:51 98.4 63 16 131/69 (89) 92 10/01/17 08:40 92 21 10/01/17 04:50 98.1 63 16 109/51 (70) 92 10/01/17 04:02 81 10/01/17 00:25 21 10/01/17 00:04 61 09/30/17 23:50 97.4 65 16 124/66 (85) 94 09/30/17 23:50 97.4 65 16 124/66 (85) 94 09/30/17 20:18 69 09/30/17 20:00 98.3 69 16 121/59 (79) 93 09/30/17 20:00 98.3 69 16 121/59 (79) 93 09/30/17 15:42 97.5 59 18 147/76 (99) 97 I/O 09/30/17 09/30/17 09/30/17 10/01/17 10/01/17 10/01/17 07:00 15:00 23:00 07:00 15:00 23:00 Intake Total 100 ml 240 ml Output Total 600 ml 250 ml 500 ml Balance -500 ml -250 ml -260 ml Intake Oral 100 ml 240 ml Output Urine Total 600 ml 250 ml 500 ml # Bowel Movements 5 Physical Exam GENERAL: In NAD SKIN: Warm and dry. HEAD: Normocephalic. EYES: No scleral icterus. No injection or drainage. NECK: Supple, trachea midline. No JVD or lymphadenopathy. CARDIOVASCULAR: Regular rate and rhythm without murmurs, gallops, or rubs. RESPIRATORY: Breath sounds decreased bilaterally. No accessory muscle use. GASTROINTESTINAL: Abdomen soft, non-tender, nondistended. MUSCULOSKELETAL: No cyanosis, mild edema. Laboratory Laboratory Tests Test 09/30/17 16:04 10/01/17 11:00 White Blood Count 2.4 TH/MM3 2.7 TH/MM3 Red Blood Count 2.93 MIL/MM3 3.07 MIL/MM3 Hemoglobin 8.3 GM/DL 8.8 GM/DL Hematocrit 25.3 % 26.7 % Mean Corpuscular Volume 86.5 FL 87.2 FL Mean Corpuscular Hemoglobin 28.3 PG 28.7 PG Mean Corpuscular Hemoglobin Concent 32.7 % 32.9 % Red Cell Distribution Width 17.7 % 17.7 % Platelet Count 61 TH/MM3 75 TH/MM3 Mean Platelet Volume 8.6 FL 8.6 FL Neutrophils (%) (Auto) 66.2 % 66.1 % Lymphocytes (%) (Auto) 23.9 % 20.6 % Monocytes (%) (Auto) 8.8 % 10.3 % Eosinophils (%) (Auto) 0.6 % 2.2 % Basophils (%) (Auto) 0.5 % 0.8 % Neutrophils # (Auto) 1.6 TH/MM3 1.8 TH/MM3 Lymphocytes # (Auto) 0.6 TH/MM3 0.6 TH/MM3 Monocytes # (Auto) 0.2 TH/MM3 0.3 TH/MM3 Eosinophils # (Auto) 0.0 TH/MM3 0.1 TH/MM3 Basophils # (Auto) 0.0 TH/MM3 0.0 TH/MM3 CBC Comment AUTO DIFF AUTO DIFF Differential Comment AUTO DIFF CONFIRMED AUTO DIFF CONFIRMED Platelet Estimate LOW LOW Platelet Morphology Comment NORMAL NORMAL Tear Drop Cells 1+ 1+ Ovalocytes 1+ 1+ Blood Urea Nitrogen 31 MG/DL 32 MG/DL Creatinine 0.83 MG/DL 1.04 MG/DL Random Glucose 92 MG/DL 162 MG/DL Total Protein 4.6 GM/DL 4.6 GM/DL Albumin 2.1 GM/DL 2.2 GM/DL Calcium Level 7.5 MG/DL 7.4 MG/DL Alkaline Phosphatase 67 U/L 58 U/L Aspartate Amino Transf (AST/SGOT) 19 U/L 18 U/L Alanine Aminotransferase (ALT/SGPT) 15 U/L 17 U/L Total Bilirubin 2.0 MG/DL 1.7 MG/DL Sodium Level 143 MEQ/L 144 MEQ/L Potassium Level 3.3 MEQ/L 3.1 MEQ/L Chloride Level 108 MEQ/L 108 MEQ/L Carbon Dioxide Level 27.1 MEQ/L 26.6 MEQ/L Anion Gap 8 MEQ/L 9 MEQ/L Estimat Glomerular Filtration Rate 89 ML/MIN 69 ML/MIN Phosphorus Level 3.0 MG/DL Magnesium Level 2.0 MG/DL Protein Corrected Calcium 8.8 MG/DL Assessment and Plan Problem List: (1) Pleural effusion ICD Codes: J90 - Pleural effusion, not elsewhere classified Status: Resolved (2) Hx of non-ST elevation myocardial infarction (NSTEMI) ICD Codes: I25.2 - Old myocardial infarction Status: Acute (3) CHF (congestive heart failure) ICD Codes: I50.9 - Heart failure, unspecified (4) CLL (chronic lymphocytic leukemia) ICD Codes: C91.10 - Chronic lymphocytic leukemia of B-cell type not having achieved remission (5) Pancytopenia ICD Codes: D61.818 - Other pancytopenia (6) Essential hypertension Status: Chronic Assessment and Plan Still c/o fatigue. Depressed. Chemotherapy planned by Dr. Maria, but the patient did not feel well after the last dose, and is not sure if he wants to continue. He is also followed by Dr. Nava for his pleural effusions requiring thoracentesis in the past. Continue current program. He wishes to go home soon. D/w pt and son. BladedinahShiraz POLLARD Oct 01, 2017 15:45
[2017-10-01 17:10] LABS: POTASSIUM 3.6 MEQ/L (3.5-5.1)
--- NOTE | 2017-10-01 19:39 | HHI.PR ---
Subjective Remarks 82 YOWM with CLL, Dysnoea, Pl eff Had TC done Mild sob Anxious to go home Objective Vital Signs Vital Signs Date Time Temp Pulse Resp B/P (MAP) Pulse Ox O2 Delivery O2 Flow Rate FiO2 10/01/17 17:49 95 21 10/01/17 16:50 98.0 70 16 128/68 (88) 95 10/01/17 12:00 98.2 72 16 124/70 (88) 95 10/01/17 08:51 98.4 63 16 131/69 (89) 92 10/01/17 08:40 92 21 10/01/17 04:50 98.1 63 16 109/51 (70) 92 10/01/17 04:02 81 10/01/17 00:25 21 10/01/17 00:04 61 09/30/17 23:50 97.4 65 16 124/66 (85) 94 09/30/17 23:50 97.4 65 16 124/66 (85) 94 09/30/17 20:18 69 09/30/17 20:00 98.3 69 16 121/59 (79) 93 09/30/17 20:00 98.3 69 16 121/59 (79) 93 I/O 09/30/17 09/30/17 09/30/17 10/01/17 10/01/17 10/01/17 07:00 15:00 23:00 07:00 15:00 23:00 Intake Total 100 ml 240 ml 600 ml 500 ml Output Total 600 ml 250 ml 500 ml 500 ml 175 ml Balance -500 ml -250 ml -260 ml 100 ml 325 ml Intake Oral 100 ml 240 ml 600 ml 500 ml Output Urine Total 600 ml 250 ml 500 ml 500 ml 175 ml # Bowel Movements 5 2 Result Diagram: 10/01/17 1100 10/01/17 1621 Objective Remarks GENERAL: Elderly male, mild sob SKIN: Warm and dry. HEAD: Normocephalic. EYES: No scleral icterus. No injection or drainage. NECK: Supple, trachea midline. No JVD or lymphadenopathy. CARDIOVASCULAR: Regular rate and rhythm without murmurs, gallops, or rubs. RESPIRATORY: Breath sounds equal bilaterally. No accessory muscle use. GASTROINTESTINAL: Abdomen soft, non-tender, nondistended. MUSCULOSKELETAL: No cyanosis, or edema. BACK: Nontender without obvious deformity. No CVA tenderness. A/P Assessment and Plan Pleural effusion Dysnoea Matti's granulomatosis CLL PLAN Aerosol nebs PRN Supplement 02 PO Prednisone DC Plans for home Francois Nava MD Oct 01, 2017 19:39
[2017-10-02] VITALS (8 sets, daily range): BP systolic 105–128; BP diastolic 55–73; PULSE 65–85; RESP 16–18; TEMP 97.6–98.4; O2SAT 93–95
[2017-10-02] MEDS: SODIUM CHLORIDE 0.9% FLUSH 10 ML FLUSH IV FLUSH SCH (08:02)
[2017-10-02] MEDS: CARVEDILOL 3.125 MG TAB PO SCH (08:03)
[2017-10-02] MEDS: predniSONE 5 MG TAB PO SCH (08:03)
[2017-10-02] MEDS: FUROSEMIDE 20 MG/2 ML VIAL IV PUSH SCH (08:10)
--- NOTE | 2017-10-02 09:05 | PD.CARD.PN ---
Subjective Subjective Remarks No CP, mild SOB, generalized weakness Objective Medications Current Medications Medications (Trade) Dose Ordered Sig/Chantel Route Start Time Stop Time Status Last Admin (Deltasone) 2.5 mg BID PO 09/29/17 21:00 10/02/17 08:03 (NS Flush) 2 ml UNSCH PRN IV FLUSH 09/29/17 11:45 10/01/17 17:59 (NS Flush) 2 ml BID IV FLUSH 09/29/17 21:00 10/02/17 08:02 (Zofran Inj) 4 mg Q6H PRN IV PUSH 09/29/17 11:45 10/02/17 08:02 (Nitrostat Sl) 0.4 mg Q5M PRN SL 09/29/17 11:45 (Pill Splitter) 1 ea UNSCH PRN OTHER 09/29/17 21:00 (Coreg) 3.125 mg BID PO 09/29/17 21:00 10/02/17 08:03 (Lasix Inj) 20 mg BID@09,18 IV PUSH 09/29/17 18:00 10/02/17 08:10 Vital Signs / I&O Vital Signs Date Time Temp Pulse Resp B/P (MAP) Pulse Ox O2 Delivery O2 Flow Rate FiO2 10/02/17 07:53 97.9 78 18 116/60 (78) 93 10/02/17 05:23 70 10/02/17 04:50 97.6 72 16 128/63 (84) 95 10/02/17 04:13 65 10/02/17 01:40 98.3 68 16 105/55 (72) 93 10/02/17 00:17 74 10/01/17 17:49 95 21 10/01/17 16:50 98.0 70 16 128/68 (88) 95 10/01/17 12:00 98.2 72 16 124/70 (88) 95 I/O 10/01/17 10/01/17 10/01/17 10/02/17 10/02/17 10/02/17 07:00 15:00 23:00 07:00 15:00 23:00 Intake Total 240 ml 600 ml 500 ml Output Total 500 ml 500 ml 175 ml Balance -260 ml 100 ml 325 ml Intake Oral 240 ml 600 ml 500 ml Output Urine Total 500 ml 500 ml 175 ml # Bowel Movements 2 Physical Exam GENERAL: In NAD SKIN: Warm and dry. HEAD: Normocephalic. EYES: No scleral icterus. No injection or drainage. NECK: Supple, trachea midline. No JVD or lymphadenopathy. CARDIOVASCULAR: Regular rate and rhythm without murmurs, gallops, or rubs. RESPIRATORY: Breath sounds decreased bilaterally. No accessory muscle use. GASTROINTESTINAL: Abdomen soft, non-tender, nondistended. MUSCULOSKELETAL: No cyanosis, mild edema. Laboratory Laboratory Tests Test 10/01/17 11:00 10/01/17 16:21 White Blood Count 2.7 TH/MM3 Red Blood Count 3.07 MIL/MM3 Hemoglobin 8.8 GM/DL Hematocrit 26.7 % Mean Corpuscular Volume 87.2 FL Mean Corpuscular Hemoglobin 28.7 PG Mean Corpuscular Hemoglobin Concent 32.9 % Red Cell Distribution Width 17.7 % Platelet Count 75 TH/MM3 Mean Platelet Volume 8.6 FL Neutrophils (%) (Auto) 66.1 % Lymphocytes (%) (Auto) 20.6 % Monocytes (%) (Auto) 10.3 % Eosinophils (%) (Auto) 2.2 % Basophils (%) (Auto) 0.8 % Neutrophils # (Auto) 1.8 TH/MM3 Lymphocytes # (Auto) 0.6 TH/MM3 Monocytes # (Auto) 0.3 TH/MM3 Eosinophils # (Auto) 0.1 TH/MM3 Basophils # (Auto) 0.0 TH/MM3 CBC Comment AUTO DIFF Differential Comment AUTO DIFF CONFIRMED Platelet Estimate LOW Platelet Morphology Comment NORMAL Tear Drop Cells 1+ Ovalocytes 1+ Blood Urea Nitrogen 32 MG/DL Creatinine 1.04 MG/DL Random Glucose 162 MG/DL Total Protein 4.6 GM/DL Albumin 2.2 GM/DL Calcium Level 7.4 MG/DL Phosphorus Level 3.0 MG/DL 2.8 MG/DL Magnesium Level 2.0 MG/DL 2.0 MG/DL Alkaline Phosphatase 58 U/L Aspartate Amino Transf (AST/SGOT) 18 U/L Alanine Aminotransferase (ALT/SGPT) 17 U/L Total Bilirubin 1.7 MG/DL Sodium Level 144 MEQ/L Potassium Level 3.1 MEQ/L 3.6 MEQ/L Chloride Level 108 MEQ/L Carbon Dioxide Level 26.6 MEQ/L Anion Gap 9 MEQ/L Estimat Glomerular Filtration Rate 69 ML/MIN Protein Corrected Calcium 8.8 MG/DL Assessment and Plan Problem List: (1) Pleural effusion ICD Codes: J90 - Pleural effusion, not elsewhere classified Status: Resolved (2) Hx of non-ST elevation myocardial infarction (NSTEMI) ICD Codes: I25.2 - Old myocardial infarction Status: Acute (3) CHF (congestive heart failure) ICD Codes: I50.9 - Heart failure, unspecified (4) CLL (chronic lymphocytic leukemia) ICD Codes: C91.10 - Chronic lymphocytic leukemia of B-cell type not having achieved remission (5) Pancytopenia ICD Codes: D61.818 - Other pancytopenia (6) Essential hypertension Status: Chronic Assessment and Plan No new cardiac issues. Still c/o fatigue. Depressed. Chemotherapy planned by Dr. Maria. The patient decided to proceed with chemo as outpt. He is also followed by Dr. Nava for his pleural effusions requiring thoracenteses in the past. Continue current program. He wishes to go home. D/w pt and family. Shiraz Retana MD Oct 02, 2017 09:05
--- NOTE | 2017-10-02 12:41 | PD.ONC.PN ---
Subjective Subjective Remarks Afebrile Pt going home with Hospice today Pt reports he is happy to go home and see his dog Objective Data Date Time Temp Pulse Resp B/P (MAP) Pulse Ox O2 Delivery O2 Flow Rate FiO2 10/02/17 12:22 98.4 85 18 117/73 (88) 94 10/02/17 08:16 68 10/02/17 07:53 97.9 78 18 116/60 (78) 93 10/02/17 05:23 70 10/02/17 04:50 97.6 72 16 128/63 (84) 95 10/02/17 04:13 65 10/02/17 01:40 98.3 68 16 105/55 (72) 93 10/02/17 00:17 74 10/01/17 17:49 95 21 10/01/17 16:50 98.0 70 16 128/68 (88) 95 10/02/17 10/02/17 10/02/17 07:00 15:00 23:00 Intake Total 120 ml Balance 120 ml Result Diagram: 10/01/17 1100 10/01/17 1621 Laboratory Results Laboratory Tests Test 10/01/17 16:21 Potassium Level 3.6 MEQ/L Phosphorus Level 2.8 MG/DL Magnesium Level 2.0 MG/DL Administered Medications Medications (Trade) Dose Ordered Sig/Chantel Route PRN Reason Start Time Stop Time Status Last Admin Dose Admin Prednisone (Deltasone) 2.5 mg BID PO 09/29/17 21:00 10/02/17 08:03 Sodium Chloride (NS Flush) 2 ml UNSCH PRN IV FLUSH FLUSH AFTER USING IV ACCESS 09/29/17 11:45 10/01/17 17:59 Sodium Chloride (NS Flush) 2 ml BID IV FLUSH 09/29/17 21:00 10/02/17 08:02 Ondansetron HCl (Zofran Inj) 4 mg Q6H PRN IV PUSH NAUSEA 09/29/17 11:45 10/02/17 08:02 Carvedilol (Coreg) 3.125 mg BID PO 09/29/17 21:00 10/02/17 08:03 Furosemide (Lasix Inj) 20 mg BID@09,18 IV PUSH 09/29/17 18:00 10/02/17 08:10 Objective Remarks GENERAL: Elderly male resting in bed in no acute distress. SKIN: Warm and dry. HEAD: Normocephalic. EYES: No injection or drainage. NECK: Supple, trachea midline. CARDIOVASCULAR: +S1/S2 RESPIRATORY: Anterior guerin clear. GASTROINTESTINAL: Abdomen soft, non-tender, nondistended. EXTREMITIES: No cyanosis NEUROLOGICAL: Awake and alert, normal speech. Assessment/Plan Problem List: (1) CLL (chronic lymphocytic leukemia) ICD Codes: C91.10 - Chronic lymphocytic leukemia of B-cell type not having achieved remission Plan: --recently was found to have progressive disease. --had multiple constitutional B symptoms including fatigue, weakness. --platelet count was running between 80-100,000 and also hemoglobin was less than 10. --started on Rituxan and Treanda chemotherapy last week Saturday. --Since D2 of Treanda, patient has been declining. -- came into the emergency room complaining of extreme weakness, tiredness, fatigue, swelling of the ankles and shortness of breath. (2) CHF (congestive heart failure) ICD Codes: I50.9 - Heart failure, unspecified Plan: --patient was found to be in congestive heart failure and also large bilateral pleural effusions similar to the previous CT scan. --was treated with diuresis. --s/p right-sided ultrasound-guided therapeutic thoracentesis (3) Pancytopenia ICD Codes: D61.818 - Other pancytopenia Plan: --give blood transfusion if hemoglobin drops below 8. --monitor neutrophil count Assessment 82y/o male admitted for followup of chronic lymphocytic leukemia. h/o Chronic lymphocytic leukemia. History of colon cancer. Cirrhosis of the liver. History of DVT. Plan 1. Pt being discharged home with Hospice 2. OK for discharge from oncology standpoint. 3. Supportive care. Iesha Lynch Oct 02, 2017 12:40
--- NOTE | 2017-10-02 12:45 | HHI.PR ---
Subjective Remarks This is a pleasant 82 y/o Male who was admitted by advanced clinical specialist on as we know he has CLL with anemia, Lymphocytosis, Splenomegaly, Matti's granulomatosis, chronic bilateral pleural effusions, thrombocytopenia, Mild to moderate CAD, Mild to Moderate Aortic Stenosis, Colon Cancer s/p resection/ ostomy reversal w/ chemo/radiation, DVT/PE, Hernia repair and multiple Thoracentesis secondary to Pleural effusions. who came to ER with complaint of intermittent "fluttering" in chest with mild lightheadedness. He denies associated chest pain /pressure or near syncope, He follows with Oncology Dr. Ez Maria and began chemo this week with treatment on 09/26 and 09/[address] Maria's note with Rituxan and Bendamustine. Last Cardiac Cath 09/23/16 for NSTEMI with mild to moderate CAD, Normal EF 65% with medical management recommended. 07/30/17 2D echo with mild to moderate , EF 60-65% with normal systolic function and diastolic function. seen in his bedroom in the presence of nurse Miss Huntley, patient had Electrolyte derangement, no nausea, vomit or diarrhea wants to go home. his Caregiver in the room. 10/02: Stable no new issues, discussed with relatives and Caregiver, accepted to go Home with Hospice at this time discharged home with Hospice. Objective Vital Signs Date Time Temp Pulse Resp B/P (MAP) Pulse Ox O2 Delivery O2 Flow Rate FiO2 10/02/17 12:22 98.4 85 18 117/73 (88) 94 10/02/17 08:16 68 10/02/17 07:53 97.9 78 18 116/60 (78) 93 10/02/17 05:23 70 10/02/17 04:50 97.6 72 16 128/63 (84) 95 10/02/17 04:13 65 10/02/17 01:40 98.3 68 16 105/55 (72) 93 10/02/17 00:17 74 10/01/17 17:49 95 21 10/01/17 16:50 98.0 70 16 128/68 (88) 95 I/O 10/01/17 10/01/17 10/01/17 10/02/17 10/02/17 10/02/17 07:00 15:00 23:00 07:00 15:00 23:00 Intake Total 240 ml 600 ml 500 ml 120 ml Output Total 500 ml 500 ml 175 ml Balance -260 ml 100 ml 325 ml 120 ml Intake Oral 240 ml 600 ml 500 ml 120 ml Output Urine Total 500 ml 500 ml 175 ml # Bowel Movements 2 1 Result Diagram: 10/01/17 1100 10/01/17 1621 Imaging Last Impressions Thoracentesis Ultrasound 09/30/17 0600 Signed Impressions: Service Date/Time: Saturday, September 30, 2017 13:02 - CONCLUSION: Uncomplicated ultrasound guided thoracentesis. Kumar Hollis MD Chest X-Ray 09/30/17 0000 Signed Impressions: Service Date/Time: Saturday, September 30, 2017 13:33 - CONCLUSION: Negative for right pneumothorax. Afshin Shin MD FACR CT Angiography 09/28/17 1721 Signed Impressions: Service Date/Time: Thursday, September 28, 2017 20:04 - CONCLUSION: 1. The study is negative for pulmonary embolism. 2. Large bilateral pleural effusions, similar to CT 10/06/16. 3. 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 Eagle Martinez MD Procedures Pleural Effusion status post Ultrasound guided thoracentesis, obtained 850 cc of fluid 09/30/17 Other Results Laboratory Tests Test 09/28/17 16:40 09/28/17 18:17 09/29/17 01:15 10/01/17 11:00 Acanthocytes OCC Keratocytes OCC Prothrombin Time 12.2 SEC Prothromb Time International Ratio 1.1 RATIO Activated Partial Thromboplast Time 24.7 SEC B-Type Natriuretic Peptide 171 PG/ML Urine Color YELLOW Urine Turbidity CLEAR Urine pH 5.0 Urine Specific [place] 1.012 Urine Protein TRACE mg/dL Urine Glucose (UA) NEG mg/dL Urine Ketones NEG mg/dL Urine Occult Blood MOD Urine Nitrite NEG Urine Bilirubin NEG Urine Urobilinogen LESS THAN 2.0 MG/DL Urine Leukocyte Esterase NEG Urine RBC 3 /hpf Urine WBC 1 /hpf Urine Hyaline Casts 6 /lpf Microscopic Urinalysis Comment CULT NOT INDICATED Total Creatine Kinase 19 U/L Troponin I LESS THAN 0.02 NG/ML White Blood Count 2.7 TH/MM3 Red Blood Count 3.07 MIL/MM3 Hemoglobin 8.8 GM/DL Hematocrit 26.7 % Mean Corpuscular Volume 87.2 FL Mean Corpuscular Hemoglobin 28.7 PG Mean Corpuscular Hemoglobin Concent 32.9 % Red Cell Distribution Width 17.7 % Platelet Count 75 TH/MM3 Mean Platelet Volume 8.6 FL Neutrophils (%) (Auto) 66.1 % Lymphocytes (%) (Auto) 20.6 % Monocytes (%) (Auto) 10.3 % Eosinophils (%) (Auto) 2.2 % Basophils (%) (Auto) 0.8 % Neutrophils # (Auto) 1.8 TH/MM3 Lymphocytes # (Auto) 0.6 TH/MM3 Monocytes # (Auto) 0.3 TH/MM3 Eosinophils # (Auto) 0.1 TH/MM3 Basophils # (Auto) 0.0 TH/MM3 CBC Comment AUTO DIFF Differential Comment AUTO DIFF CONFIRMED Platelet Estimate LOW Platelet Morphology Comment NORMAL Tear Drop Cells 1+ Ovalocytes 1+ Blood Urea Nitrogen 32 MG/DL Creatinine 1.04 MG/DL Random Glucose 162 MG/DL Total Protein 4.6 GM/DL Albumin 2.2 GM/DL Calcium Level 7.4 MG/DL Phosphorus Level 3.0 MG/DL Magnesium Level 2.0 MG/DL Alkaline Phosphatase 58 U/L Aspartate Amino Transf (AST/SGOT) 18 U/L Alanine Aminotransferase (ALT/SGPT) 17 U/L Total Bilirubin 1.7 MG/DL Sodium Level 144 MEQ/L Potassium Level 3.1 MEQ/L Chloride Level 108 MEQ/L Carbon Dioxide Level 26.6 MEQ/L Anion Gap 9 MEQ/L Estimat Glomerular Filtration Rate 69 ML/MIN Protein Corrected Calcium 8.8 MG/DL Test 10/01/17 16:21 Potassium Level 3.6 MEQ/L Phosphorus Level 2.8 MG/DL Magnesium Level 2.0 MG/DL Objective Remarks General: Alert and oriented x 3. No acute distress. Skin: Warm and Dry HEENT: Normocephalic Atraumatic. No JVD. Cardiovascular: S1 and S2 in regular rhythm bradycardic rate. No S3, S4, rub or gallop. Grade 2/6 systolic murmur loudest RUSB and LUSB. Respiratory: Decreased breath sounds, GI: abdomen soft and flat. Normoactive bowel sounds. No tenderness. Musculoskeletal: No clubbing, cyanosis or obvious deformities. Bilateral lower extremity edema 2+ feet/ankles and 1+ knees. Neuro: Arouses easily and alert. No obvious cranial nerve deficits. Lying in bed and able to slowly move all extremities slowly. Gait is not observed. Speech is clear but soft and talks slowly. Psychiatric: Pleasant, mildly flat depressed affect. Insight and judgement appear normal Medications and IVs Current Medications Medications (Trade) Dose Ordered Sig/Chantel Route Start Time Stop Time Status Last Admin (Deltasone) 2.5 mg BID PO 09/29/17 21:00 10/02/17 08:03 (NS Flush) 2 ml UNSCH PRN IV FLUSH 09/29/17 11:45 10/01/17 17:59 (NS Flush) 2 ml BID IV FLUSH 09/29/17 21:00 10/02/17 08:02 (Zofran Inj) 4 mg Q6H PRN IV PUSH 09/29/17 11:45 10/02/17 08:02 (Nitrostat Sl) 0.4 mg Q5M PRN SL 09/29/17 11:45 (Pill Splitter) 1 ea UNSCH PRN OTHER 09/29/17 21:00 (Coreg) 3.125 mg BID PO 09/29/17 21:00 10/02/17 08:03 (Lasix Inj) 20 mg BID@09,18 IV PUSH 09/29/17 18:00 10/02/17 08:10 A/P Assessment and Plan Intermittent Palpitations, chronic dyspnea with large pleural effusions, Chronic Leg edema: Tele as above events and continued monitoring. Seen and evaluated by Dr. Andujar (cardiology) in [facility]. No stress test recommended. Recommend admission to [facility] service for further medical management and likely admission. Will leave any recommendations for Speciality consults to their discretion. BB is held. Pleural effusions: chronic, Continue diuresis. environmental monitoring specialist consulted. Therapeutic thoracentesis 09/30/17 performed. Acute on chronic CHF with fluid overload, continue Lasix 20 mg IV bid . Cardiology following, will continue Lasix. Palpitations. Had 4 beat run of V tach . Resume Coreg with holding parameters. Cardiology okay to discharge home will continue Home medicines. H/o CLL on chemotherapy, follows with Dr Pedroza oncology, he will go home on Hospice. Consult palliative Care he will go home with Hospice. DVT ppx SCD/TEDs, lovenox Discharge Planning Discharge Home with Hospice. Mega Mercado MD Oct 02, 2017 12:45
--- NOTE | 2017-10-02 12:47 | HHI.DS ---
Discharge Summary Admission Date Oct 01, 2017 at 09:36 Discharge Date: Oct 02, 2017 Admitting Diagnosis Chest pain (1) NSTEMI (non-ST elevated myocardial infarction) ICD Code: I21.4 - Non-ST elevation (NSTEMI) myocardial infarction Diagnosis: Principal Status: Resolved (2) CLL (chronic lymphocytic leukemia) ICD Code: C91.10 - Chronic lymphocytic leukemia of B-cell type not having achieved remission Diagnosis: Principal (3) Pleural effusion ICD Code: J90 - Pleural effusion, not elsewhere classified Diagnosis: Principal Status: Resolved Procedures Right Ultrasound Guided Thoracentesis. Brief History - From Admission 82 year-old elderly frail thin male with multiple medical problems to include CLL w/ anemia, Lymphocytosis, splenomegaly, Matti's granulomatosis, chronic bilateral pleural effusions, thrombocytopenia, Mild to moderate CAD, Mild to Moderate Aortic Stenosis, Colon Cancer s/p resection/ostomy reversal w/ chemo/radiation, DVT/PE, Hernia repair and multiple Thoracentesis secondary to Pleural effusions. He presented to ER yesterday afternoon with c/o intermittent "fluttering" in chest with mild lightheadedness. He denies associated chest pain/pressure or near syncope. He has chronic fatigue and generalized weakness which he feels is overall unchanged. He denies any fluttering/palpitations today. He has chronic dyspnea and leg edema, both of which he cannot discern if there is significant change this week. He follows with Oncology Dr. Ez Maria and began chemo this week with treatment on 09/26 and 09/[address] Maria's note with Rituxan and Bendamustine. His bass mechanism maker is Dr. Retana but he is unsure of his last visit. Last Cardiac Cath 09/23/16 for NSTEMI with mild to moderate CAD, Normal EF 65% with medical management recommended. 07/30/17 2D echo with mild to moderate , EF 60-65% with normal systolic function and diastolic function. CBC/BMP: 10/01/17 1100 10/01/17 1621 Significant Findings Laboratory Tests Test 09/30/17 16:04 10/01/17 11:00 10/01/17 16:21 White Blood Count 2.4 TH/MM3 (4.0-11.0) 2.7 TH/MM3 (4.0-11.0) Red Blood Count 2.93 MIL/MM3 (4.50-5.90) 3.07 MIL/MM3 (4.50-5.90) Hemoglobin 8.3 GM/DL (13.0-17.0) 8.8 GM/DL (13.0-17.0) Hematocrit 25.3 % (39.0-51.0) 26.7 % (39.0-51.0) Red Cell Distribution Width 17.7 % (11.6-17.2) 17.7 % (11.6-17.2) Platelet Count 61 TH/MM3 (150-450) 75 TH/MM3 (150-450) Monocytes (%) (Auto) 8.8 % (0.0-8.0) 10.3 % (0.0-8.0) Neutrophils # (Auto) 1.6 TH/MM3 (1.8-7.7) Lymphocytes # (Auto) 0.6 TH/MM3 (1.0-4.8) 0.6 TH/MM3 (1.0-4.8) Platelet Estimate LOW (NORMAL) LOW (NORMAL) Tear Drop Cells 1+ (NORMAL) 1+ (NORMAL) Ovalocytes 1+ (NORMAL) 1+ (NORMAL) Blood Urea Nitrogen 31 MG/DL (7-18) 32 MG/DL (7-18) Total Protein 4.6 GM/DL (6.4-8.2) 4.6 GM/DL (6.4-8.2) Albumin 2.1 GM/DL (3.4-5.0) 2.2 GM/DL (3.4-5.0) Calcium Level 7.5 MG/DL (8.5-10.1) 7.4 MG/DL (8.5-10.1) Total Bilirubin 2.0 MG/DL (0.2-1.0) 1.7 MG/DL (0.2-1.0) Potassium Level 3.3 MEQ/L (3.5-5.1) 3.1 MEQ/L (3.5-5.1) Chloride Level 108 MEQ/L (98-107) 108 MEQ/L (98-107) Random Glucose 162 MG/DL (74-106) Estimat Glomerular Filtration Rate 69 ML/MIN (>89) Imaging Last Impressions Thoracentesis Ultrasound 09/30/17 0600 Signed Impressions: Service Date/Time: Saturday, September 30, 2017 13:02 - CONCLUSION: Uncomplicated ultrasound guided thoracentesis. Kumar Hollis MD Chest X-Ray 09/30/17 0000 Signed Impressions: Service Date/Time: Saturday, September 30, 2017 13:33 - CONCLUSION: Negative for right pneumothorax. Afshin Shin MD FACR CT Angiography 09/28/17 1721 Signed Impressions: Service Date/Time: Thursday, September 28, 2017 20:04 - CONCLUSION: 1. The study is negative for pulmonary embolism. 2. Large bilateral pleural effusions, similar to CT 10/06/16. 3. 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 Eagle Martinez MD PE at Discharge General: Alert and oriented x 3. No acute distress. Skin: Warm and Dry HEENT: Normocephalic Atraumatic. No JVD. Cardiovascular: S1 and S2 in regular rhythm bradycardic rate. No S3, S4, rub or gallop. Grade 2/6 systolic murmur loudest RUSB and LUSB. Respiratory: Decreased breath sounds, GI: abdomen soft and flat. Normoactive bowel sounds. No tenderness. Musculoskeletal: No clubbing, cyanosis or obvious deformities. Bilateral lower extremity edema 2+ feet/ankles and 1+ knees. Neuro: Arouses easily and alert. No obvious cranial nerve deficits. Lying in bed and able to slowly move all extremities slowly. Gait is not observed. Speech is clear but soft and talks slowly. Psychiatric: Pleasant, mildly flat depressed affect. Insight and judgement appear normal Hospital Course This is a pleasant 82 y/o Male who was admitted by medicaid eligibility specialist on as we know he has CLL with anemia, Lymphocytosis, Splenomegaly, Matti's granulomatosis, chronic bilateral pleural effusions, thrombocytopenia, Mild to moderate CAD, Mild to Moderate Aortic Stenosis, Colon Cancer s/p resection/ ostomy reversal w/ chemo/radiation, DVT/PE, Hernia repair and multiple Thoracentesis secondary to Pleural effusions. who came to ER with complaint of intermittent "fluttering" in chest with mild lightheadedness. He denies associated chest pain /pressure or near syncope, He follows with Oncology Dr. Ez Maria and began chemo this week with treatment on 09/26 and 09/[address] Maria's note with Rituxan and Bendamustine. Last Cardiac Cath 09/23/16 for NSTEMI with mild to moderate CAD, Normal EF 65% with medical management recommended. 07/30/17 2D echo with mild to moderate , EF 60-65% with normal systolic function and diastolic function. seen in his bedroom in the presence of nurse Miss Huntley, patient had Electrolyte derangement, no nausea, vomit or diarrhea wants to go home. his Caregiver in the room. 10/02: Stable no new issues, discussed with relatives and Caregiver, accepted to go Home with Hospice at this time discharged home with Hospice. Assessment and Plan Intermittent Palpitations, chronic dyspnea with large pleural effusions, Chronic Leg edema: Tele as above events and continued monitoring. Seen and evaluated by Dr. Andujar (cardiology) in [facility]. No stress test recommended. Recommend admission to [facility] service for further medical management and likely admission. Will leave any recommendations for Speciality consults to their discretion. BB is held. Pleural effusions: chronic, Continue diuresis. armor reconnaissance specialist consulted. Therapeutic thoracentesis 09/30/17 performed. Acute on chronic CHF with fluid overload, continue Lasix 20 mg IV bid . Cardiology following, will continue Lasix. Palpitations. Had 4 beat run of V tach . Resume Coreg with holding parameters. Cardiology okay to discharge home will continue Home medicines. H/o CLL on chemotherapy, follows with Dr Pedroza oncology, he will go home on Hospice. Consult palliative Care he will go home with Hospice. DVT ppx SCD/TEDs, lovenox Discharge Planning Discharge Home with Hospice. Pt Condition on Discharge: Fair Discharge Disposition: Hospice/ Home Discharge Time: <= 30 minutes Discharge Instructions DIET: Follow Instructions for: As Tolerated, No Restrictions Activities you can perform: Regular-No Restrictions Mega Mercado MD Oct 02, 2017 12:47
== END 2017-10-02 13:25 | disposition home or self-care (01) | DRG 187 ==
LOC: NEPE 16:04 → NEDA 21:36 → NEPFCDU 22:52 → HCIS 09-30 15:15 → OBSVTOIN 10-01 09:36
PROVIDERS: ADMIT Internal Medicine; ATTEND Internal Medicine
PROC: 0W993ZZ Drainage of Right Pleural Cavity, Percutaneous Approach (ICD-10-PCS; principal; 2017-10-02)
DX: J90 Pleural effusion, not elsewhere classified (principal); C91.10 Chronic lymphocytic leukemia of B-cell type not having achieved remission; I50.9 Heart failure, unspecified; I11.0 Hypertensive heart disease with heart failure; I47.2 Ventricular tachycardia; D61.818 Other pancytopenia; M31.30 Wegener's granulomatosis without renal involvement; D68.9 Coagulation defect, unspecified; K76.6 Portal hypertension; D63.0 Anemia in neoplastic disease; D73.1 Hypersplenism; I25.10 Atherosclerotic heart disease of native coronary artery without angina pectoris; I35.0 Nonrheumatic aortic (valve) stenosis; I34.0 Nonrheumatic mitral (valve) insufficiency; I25.2 Old myocardial infarction; K21.9 Gastro-esophageal reflux disease without esophagitis; K44.9 Diaphragmatic hernia without obstruction or gangrene; K74.60 Unspecified cirrhosis of liver; Z51.5 Encounter for palliative care; Z66 Do not resuscitate; Z85.048 Personal history of other malignant neoplasm of rectum, rectosigmoid junction, and anus; Z77.090 Contact with and (suspected) exposure to asbestos; H91.90 Unspecified hearing loss, unspecified ear; Z86.711 Personal history of pulmonary embolism; Z86.718 Personal history of other venous thrombosis and embolism; Z86.73 Personal history of transient ischemic attack (TIA), and cerebral infarction without residual deficits
CPT/HCPCS: 32555; 71010; 71275; 80053; 81001; 82550; 83735; 83880; 84100; 84132; 84484; 85025; 85610; 85730; 87040; 87804; 93005; 96374; 96376; C1729; G0378; J1940; J2405; J7512; Q9967